=== PATIENT | female | born 1980 | race Caucasian/White ===

== ENCOUNTER 2024-07-20 12:51 | Outpatient (REF) | payer OTHER, SELFPAY ==
[2024-07-20 16:05] LABS: Iron 64 mcg/dL (30-160); Percent Iron Saturation 21 % (15-50); Total Iron Binding Capacity 307 mcg/dL (228-428); Unsaturated Iron Binding 243 ug/dL
[2024-07-20 16:13] LABS: Ferritin 214 ng/mL (10-250)
== END 2024-07-20 12:52 | disposition home or self-care (01) ==
LOC: HO.LAB 12:51
PROVIDERS: PCP Physician Assistant; Visit Provider Internal Medicine
DX: K21.9 Gastro-esophageal reflux disease without esophagitis (principal); D50.9 Iron deficiency anemia, unspecified
CPT/HCPCS: 36415; 82728; 83540

== ENCOUNTER 2024-07-20 12:51 | Outpatient (AMB) | payer OTHER, SELFPAY ==
--- NOTE | 2024-07-20 12:54 | A.OFFVIS_ITS ---
Vital Signs 07/20/24 12:56 Height 5 ft 5 in Weight 253 lb 8.505 oz BMI 42.2 BP 108/56 L Blood Pressure Location Lt brachial Position Sitting Pulse 77 Intake Visit Reasons: Iron Def Anemia, GERD Intake Note: May presents in the office as a new patient for iron def anemia and GERD. CC: used to be seen at the [facility]. Flare up in the epigastric region - states that she did not respond well to her famotidine for her gastritis flare up - states that anything she eats that is solid gives her pain. She gets both constipation and diarrhea and states that after she eats she has to run to the bathroom with diarrhea. Nursery Laborer Required: No Allergies No Known Allergies Allergy (Verified 07/20/24 12:56) HPI Comments Details: 43 y.o F with PMH of who is here for anemia. Reports was prev established with GI in [place] for epigastric pain and was told has hiatal hernia after an EGD - roughly around 2019. Now having similar complaints, has cramping and discomfort after solid foods. BMs are soft to loose. Pain gets better after defecation. No blood in stool. No N/V. Takes famotidine intermittently. Switched to omeprazole which helped more. Pt has an IUD since 2018 so doesnt menstruate. Was started on PO iron by PCP for iron deficiency anemia. Labs reviewed through pt's portal. Hb 14, on 07/13. iron studies not done. [facility] Surgical History (Updated 07/20/24 @ 12:57 by ROBERT Gibbons) History of esophagogastroduodenoscopy (EGD) Review of Systems Const All systems reviewed & are unremarkable except as noted in HPI and below Physical Exam Vital Signs: Last Vital Signs Pulse 77 07/20/24 12:56 BP 108/56 L 07/20/24 12:56 BMI result Body Mass Index 42.2 No apparent distress Nonicteric Abdomen soft, nondistended Alert and oriented x3, normal gait Assessment & Plan Assessment & Plan (1) GERD (gastroesophageal reflux disease): Code(s): K21.9 - Gastro-esophageal reflux disease without esophagitis Category: Medical (2) Iron deficiency anemia: Code(s): D50.9 - Iron deficiency anemia, unspecified Category: Medical Plan 1. For reflux sx - will recommend barium swallow vic given reported hx of HH. In the meantime, reinstate PPI. Plan: - Barium swallow - omeprazole 20 mg once daily x 90 days 2. TRINITY Pt has IUD and does not menstruate. Will need bidirectional endoscopy to evaluate this further. Plan: - EGD/colo to be booked - PEG prep Rxed and instructions given - repeat iron panel Follow up after scopes Orders: Orders IRON PROFILE Today D50.9 - Iron deficiency anemia, unspecified Ferritin Today D50.9 - Iron deficiency anemia, unspecified [place] barium swallow Today K21.9 - Gastro-esophageal reflux disease without esophagitis Medications: New omeprazole 20 mg PO DAILY 90 caps 0RF peg 3350-electrolytes 236-22.74-6.74 -5.86 gram (Golytely) as per split prep instructions, until fecal effluent is clear 240 mL PO Q10M 4,000 mL 0RF colonoscopy Coding Level of Care Code New Pt Level 4 (07832) Diagnoses GERD (gastroesophageal reflux disease) K21.9 Iron deficiency anemia D50.9
[2024-07-20 12:56] VITALS: BP 108/56; PULSE 77; BMI 42.2
--- OUTSIDE RECORDS SUMMARY | 2024-07-20 13:31 | XMS_ITS | Encounter Summary ---
Author Organization [employer] Address [address] [place] [address] 7 [place] [address] Care Team Providers Care Last Sawyer Name Role Phone Lacie Valle PA-C Primary Care Provider Unav ailable Encounter Details Date Type Department Care Team (Latest Contact Info) Description 11/07/2021 Abstract [facility] Dental, Provider, DDS Social History Tobacco Use Types Packs/Day Years Used Date Smoking Tobacco: Never Assessed Comments Unknown Sex and Gender Information Value Date Recorded Sex Assigned at Female 02/25/2022 1:19 PM EST Legal Sex Female 8:33 PM EDT Gender Identity Female 02/25/2022 1:19 PM EST Sexual Orientation Choose not to disclose 2022 9:24 AM EST documented as of this encounter Plan of Treatment Upcoming Encounters Date Type Department Care Team (Late st Contact Info) Description 08/30/2024 8:30 AM EDT Office Visit Thor [facility] Dental [address] [place] [address] Opal Huang LLD [address] [place] [address] documented as of this encounter Visit Diagnoses Not on filedocumented in this encounter Care Teams Last Sawyer Relationship Specialty Start Date End Date Lacie Valle PA-C PCP - General Family Medicine 06/03/22 documented as of this encounter
== END 2024-07-20 14:01 | disposition home or self-care (01) ==
LOC: HO.HGI 12:52
PROVIDERS: PCP Physician Assistant; Visit Provider Internal Medicine
DX: K21.9 Gastro-esophageal reflux disease without esophagitis (principal); D50.9 Iron deficiency anemia, unspecified
CPT/HCPCS: 99204

== ENCOUNTER 2025-01-26 07:48 | Day surgery (SDC) | payer OTHER, SELFPAY ==
--- OUTSIDE RECORDS SUMMARY | 2024-12-23 07:33 | XMS_ITS | Clinical Summary ---
Author Organization [employer] Address [address] [place] [address] 7 [place] [address] Care Team Providers Care Finishing Machine Operator Name Role Phone PcpThor Unassigned Primary Care Provider U navailable Allergies No known active allergies Medications citalopram (CeleXA) 20 MG tablet Take 20 mg by mouth Once per day. Active atorvastatin (Lipitor) 10 MG tablet Take 10 mg by mouth Once per day. Active Family History Relation Name Status Comments Maternal Grandfather Materna l Grandfather: , diagnosed with Hypercholesteremia, Hypertension, Cancer of lung Other Paternal Uncle: 50 yrs, diagnosed with Cancer of lung Paternal Grandfather Paterna l Grandfather: , [place]?, diagnosed with Coronary artery disease (CAD) Social History Tobacco Use Types Packs/Day Years Used Date Smoking Tobacco: Former Cigarettes Q uit: 2002 Pipe Smokeless Tobacco: Never Tobacco Cessation:Counseling Given: Not Answered Alcohol Use Standard Drinks/Week Comments Yes 0 (1 standard drink = 0.6 oz pur e alcohol) socially Comments Unknown Sex and Gender Information Value Date Recorded Sex Assigned at Female 02/25/2022 1:19 PM EST Legal Sex Female 8:33 PM EDT Gender Identity Female 02/25/2022 1:19 PM EST Sexual Orientation Choose not to disclose 2022 9:24 AM EST Last Filed Vital Signs Vital Sign Reading Time Taken Comments Blood Pressure 146/87 02/29/2024 8:03 AM EST Pulse 84 02/29/2024 8:03 AM EST Temperature - - Respiratory Rate - - Oxygen Saturation 98% 05/27/2021 8:30 AM EDT Inhaled Oxygen Concentration - - Weight 114 kg (250 lb 12.8 oz) 05/27/2021 8:30 A M EDT Height 163.8 cm (5' 4.5 ) 05/27/2021 8:30 AM EDT Body Mass Index 42.38 05/27/2021 8:30 AM EDT Plan of Treatment Health Maintenance Due Date Last Done Comments Depression Screening 1981 HIV Screening 1981 SDOH Screening 1981 Disability Screening 1981 Alcohol/Substance Use Screening 1993 Family Planning (PISQ) 1996 HPV Vaccines (1 - 3-dose series) 1996 Hepatitis C Screening 11/23/1999 Hepatitis B Vaccines (1 of 3 - 19+ 3-dose series) 2000 Pap Smear 2002 Cervical Cancer Screening 11/23/2011 HPV/Cotest 11/23/2011 Dental Oral Exam 08/25/2024 02/25/2024, , 03/12/2023, Additional history exists Dental Prophylaxis 08/25/2024 02/25/2024, 0 10/21/2023, 03/12/2023, Additional history exists COVID-19 Vaccine ( season) 2024 11/21/2022, 06/09/2020, 05/17/2020 Influenza Vaccine (#1) 2024 , 12/12/2019, 12/13/2008, Additional history exists Mammogram 10/24/2024 10/24/2022, 10/24/2022 Dental X-Ray: Bitewings 02/25/2025 02/24/19 25, 12/11/2022, 11/07/2021, Additional history exists Tobacco Screening 04/28/2025 04/28/2024 Dental X-Ray: Full Mouth 02/25/2027 025, 11/07/2021, 07/04/2013, Additional history exists Zoster Vaccines (1 of 2) 11/23/2031 DTaP/Tdap/Td Vaccines (3 - Td or Tdap) 11/10/2033 11/11/2023, 09/05/2015, 05/21/2006 RSV Patients and Patients Aged 60 years or older (1 - 1-dose 75+ series) 2056 HIB Vaccines Aged Out No longer eligi ble based on patient's age to complete this topic Hepatitis A Vaccines Aged Out No long er eligible based on patient's age to complete this topic IPV Vaccines Aged Out No longer eligi ble based on patient's age to complete this topic Meningococcal B Vaccine Aged Out No l onger eligible based on patient's age to complete this topic Meningococcal Vaccine Aged Out No kalie natalie eligible based on patient's age to complete this topic Pneumococcal Vaccine: Pediatrics (0 to 5 Years) and At-Risk Patients (6 to 49) Years Aged Out No longer eligible based on patient's age to complete this topic RSV under 20 months Aged Out No longe r eligible based on patient's age to complete this topic Rotavirus Vaccines Aged Out No longer eligible based on patient's age to complete this topic Procedures Procedure Name Priority Date/Time Associated Diagnosis Comments Full PROPHYLAXIS - ADULT Routine 025 8:30 AM EST INTRAORAL - COMPLETE SERIES OF RADIOGRAPHIC IMAGES Routine 02/25/2024 8:30 AM EST PERIODIC ORAL EVALUATION - ESTABLISHED PATIENT Routine 02/25/2024 8:30 AM EST from Last 3 Months or Most Recently Relevant to Health Maintenance Insurance DENTAL - [facility] Care Teams Finishing Machine Operator Relationship Specialty Start Date End Date Thor Garcia Unassigned PCP - General Family Medicine 11/15/24
--- OUTSIDE RECORDS SUMMARY | 2024-12-23 07:33 | XMS_ITS | Encounter Summary ---
Author Organization [facility] Address [address] [place] [address] Phone Care Team Providers Care Station Usher Name Role Phone Michi Soria NP Primary Care Provider [phone] Joe Reinoso DO Primary Care Provider [phone] Sejal Ngo MD Primary Care Provider + Encounter Details Date Type Department Care Team (Latest Contact Info) Description 01/05/2020 Transcribe Orders Virtual Department [address] [place] [address] Connor Johansen MD [address] [address] [email or web address] Pre-operative laboratory examination (Primary Dx) Social History Tobacco Use Types Packs/Day Years Used Date Smoking Tobacco: Never Smokeless Tobacco: Never Alcohol Use Standard Drinks/Week Comments Yes 0 (1 standard drink = 0.6 oz pur e alcohol) once a week Comments No Sex and Gender Information Value Date Recorded Sex Assigned at Female 12/15/2020 1:20 AM EDT Legal Sex Female 9:19 PM EDT Gender Identity Female 12/15/2020 1:20 AM EDT Sexual Orientation Straight 12/15/2020 1: 20 AM EDT documented as of this encounter Plan of Treatment Upcoming Encounters Date Type Department Care Team (Late st Contact Info) Description 04/28/2025 10:15 AM EST Office Visit [facility] Pulmonary, Allergy and Critical Care Medicine [address] [place] [address] [place] [address] Bradley Philip MD, MS 10 [facility] 2nd [place] [address] [email or web address] documented as of this encounter Results * COVID-19 PCR Order (01/09/2020 6:45 AM EST) Specimen Source NASOPHARYNGEAL SW[facility] ([employer] COVID-19 Comment [id number] [facility] COVID Testing Status Sent to [facility] Other 01/09/2020 6:45 AM EST 01/09/2020 12:54 PM EST us Connor Johansen MD BODY FLUIDS AND STOOLS ORDERAB LES Final Result Performing Organization Address City/State/[facility] Co de Phone Number [facility] [address] [place] [address] documented in this encounter Visit Diagnoses Diagnosis Pre-operative laboratory examination- Primary Pre-procedural laboratory examination documented in this encounter Additional Health Concerns Infection Onset Date Last Indicated Resolved Time CoV-Risk 03/16/2024 03/16/2024 03/27/2024 2:34 AM EST documented as of this encounter Care Teams Station Usher Relationship Specialty Start Date End Date Michi Soria NP [address] [place] [address] [email or web address] PCP - General Family Medicine 12/17/19 04/01/22 Joe Reinoso DO [address] [facility] [address] [place] [address] [email or web address] PCP - General Internal Medicine 04/02/22 02/05/23 Sejal Ngo MD [address] [place] [address] PCP - General Family Medicine 02/06/23 documented as of this encounter Additional Source Comments The information contained in this document represents components of the legal health record. It is not the complete legal health record.[facility]
--- OUTSIDE RECORDS SUMMARY | 2024-12-23 07:33 | XMS_ITS | Encounter Summary ---
Author Organization [facility] Address [address] [place] [address] Phone Care Team Providers Care Die Trouble Shooter Name Role Phone Fior Carney MD Primary Care Provider Michi Soria NP Primary Care Provider [phone] Joe Reinoso DO Primary Care Provider [phone] Sejal Ngo MD Primary Care Provider + Encounter Details Date Type Department Care Team (Latest Contact Info) Description 12/01/2019 Transcribe Orders Virtual Department [address] [place] [address] Fior Carney MD [address] [place] [address] [email or web address] SOB (shortness of breath) (Primary Dx) Social History Tobacco Use Types [...] Upcoming Encounters Date Type Department Care Team ( Contact Info) Description 04/28/2025 10:15 AM EST Office Visit [facility] Pulmonary, Allergy and Critical Care Medicine [address] [place] [address] [place] [address] Bradley Philip MD, MS 10 [facility] 2nd [place] [address] [email or web address] documented as of this encounter Results * XR CHEST PA AND LATERAL 2 VIEWS (12/07/2019 11:37 AM EDT) Anatomical Region Laterality Modality Chest Computed Radiogr aphy 12/07/2019 11:4 3 AM EDT Impressions 12/07/2019 11:43 AM EDT Clear lungs. Narrative 12/07/2019 11:43 AM EDT TECHNIQUE: XR CHEST PA AND LATERAL 2 VIEWS COMPARISON: April 23, 2017 FINDINGS: Lines/tubes: None. Lungs: The lungs are well inflated and clear. There is no evidence of pneumonia or pulmonary edema. Pleura: There is no pleural effusion or pneumothorax. Heart and mediastinum: The heart and the mediastinum are normal. Bones: The thoracic skeleton is unremarkable. Procedure Note Seth Silva MD, ELIZABETH - 12/07/2019 TECHNIQUE: XR CHEST PA AND LATERAL 2 VIEWS COMPARISON: April 23, 2017 FINDINGS: Lines/tubes: None. Lungs: The lungs are well inflated and clear. There is no evidence ofpneumonia or pulmonary edema. Pleura: There is no pleural effusion or pneumothorax. Heart and mediastinum: The heart and the mediastinum are normal. Bones: The thoracic skeleton is unremarkable. IMPRESSION: Clear lungs. Fior Carney MD IMG XR CHEST Final R esult documented in this encounter Visit Diagnoses Diagnosis SOB (shortness of breath)- Primary Shortness of breath SOB (shortness of breath) Shortness of breath documented in this encounter Additional Health Concerns Infection Onset Date Last Indicated Resolved Time CoV-Risk 03/16/2024 03/16/2024 03/27/2024 2:34 AM EST documented as of this encounter Care Teams Die Trouble Shooter Relationship Specialty Start Date End Date Fior Carney MD [email or web address] PCP - General Family Medicine 10/13/19 12/16/19 Michi Soria NP [address] [place] [address] [email or web address] PCP - General Family Medicine 12/17/19 04/01/22 Joe Reinoso DO [address] [place] [address] SHAYY Cruz [address] [email or web address] PCP - General Internal Medicine 04/02/22 02/05/23 Sejal Ngo MD [address] [place] [address] [email or web address] PCP - General Family Medicine 02/06/23 documented as of this encounter Additional Source Comments The information contained in this document represents components of the legal health record. It is not the complete legal health record.[facility]
--- OUTSIDE RECORDS SUMMARY | 2024-12-23 07:34 | XMS_ITS | Encounter Summary ---
Author Organization [facility] Address [address] [place] [address] Phone Care Team Providers Care Drum Printer Name Role Phone Michi Soria NP Primary Care Provider [phone] Joe Reinoso DO Primary Care Provider [phone] Sejal Ngo MD Primary Care Provider + Encounter Details Date Type Department Care Team (Latest Contact Info) Description 03/17/2022 Transcribe Orders Virtual Department [address] [place] [address] Joe Reinoso DO [address] [place] [address], [address] [place], [place] [id number] [email or web address] Right shoulder pain, unspecified chronicity (Primary Dx) Social History Tobacco Use Types [...] Pulmonary, Allergy and Critical Care Medicine [address] [facility] [place] [address] Bradley Philip MD, MS 10 [facility] 2nd [place] [address] [email or web address] documented as of this encounter Visit Diagnoses Diagnosis Right shoulder pain, unspecified chronicity- Primary documented in this encounter Additional Health Concerns Infection Onset Date Last Indicated Resolved Time CoV-Risk 03/16/2024 03/16/2024 03/27/2024 2:34 AM EST documented as of this encounter Care Teams Drum Printer Relationship Specialty Start Date End Date Michi Soria NP [address] [place] [address] [email or web address] PCP - General Family Medicine 12/17/19 04/01/22 Joe Reinoso DO [address] [place] [address] [address] [place] [id number] [email or web address] PCP - General Internal Medicine 04/02/22 02/05/23 Sejal Ngo MD [address] [place] [address] [email or web address] PCP - General Family Medicine 02/06/23 documented as of this encounter Additional Source Comments The information contained in this document represents components of the legal health record. It is not the complete legal health record.[facility]
--- OUTSIDE RECORDS SUMMARY | 2024-12-23 07:34 | XMS_ITS | Encounter Summary ---
Author Organization [facility] Address [address] [place] [address] Phone Care Team Providers Care Room Service Runner Name Role Phone Cris Pelaez MD Primary Care Provider [phone] Tanika Dobbins CNP Primary Care Provider + Fior Carney MD Primary Care Provider Michi Soria NP Primary Care Provider [phone] Joe Reinoso DO Primary Care Provider [phone] Sejal Ngo MD Primary Care Provider + Encounter Details Date Type Department Care Team (Late st Contact Info) Description 05/12/2017 Ancillary Orders Virtual Department [address] [place] [address] Nely Ng MD [address] [place], [place] [id number] [email or web address] Social History Tobacco Use Types Packs/Day Years [...] Description 04/28/2025 10:15 AM EST Office Visit [facility] Pulmonary, Allergy and Critical Care Medicine [address] [place] [address] [place] [address] Bradley Philip MD, MS 10 [facility] 2nd [place] [address] documented as of this encounter Results * Holter Monitor 24 Hours (05/15/2017 9:46 AM EDT) Total Beats 113,099 [facility] Ventricular Ectopy Total Beats 0 [facility] Ventricular Ectopy Single Beats 0 [facility] Ventricular Pair 0 [facility] Ventricular Runs 0 [facility] Supraventricular Total Beats 8 [facility] Supraventricular Ectopic Single Beats 6 [facility] Supraventricular Pairs 1 [facility] Supraventricular Runs 0 [facility] Mean Heart Rate 85 BPM [facility] Maximum Heart Rate 130 BPM [facility] Minimum Heart Rate 54 BPM [facility] Longest RR 1.280 S [facility] Anatomical Region Laterality Modality Heart Other 05/13/2017 9:08 AM EDT 05/14/2017 3:46 PM EDT Impressions 05/15/2017 11:02 AM EDT Normal 24 hour monitor. Patient symptoms during NSR and sinus tachycardia. Narrative 05/15/2017 11:02 AM EDT 24 Hour monitor: Heart rate 54 MIN at 00:20:48 14-MAY-2017 85 AVG 130 MAX at 07:25:42 14-MAY-2017 Rare PACs present. Pt symptoms of fluttering and shortness of breath during NSR and sinus tachycardia. us Nely Ng MD [facility] ORDER EFRAIN Final Result documented in this encounter Visit Diagnoses Diagnosis Palpitations Palpitations documented in this encounter Additional Health Concerns Infection Onset Date Last Indicated Resolved Time CoV-Risk 03/16/2024 03/16/2024 03/27/2024 2:34 AM EST documented as of this encounter Care Teams Room Service Runner Relationship Specialty Start Date End Date Cris Pelaez MD [email or web address] PCP - General 12/09/16 01/11/19 Tanika Dobbins CNP [address] [place] [address] [email or web address] PCP - General Family Medicine 01/12/19 10/12/19 Fior Carney MD [address] [place] [address] [email or web address] PCP - General Family Medicine 10/13/19 12/16/19 Michi Soria NP [address] [place] [address] [email or web address] PCP - General Family Medicine 12/17/19 04/01/22 Joe Reinoso DO 245 [facility] 20 [place] [address] [email or web address] PCP - General Internal Medicine 04/02/22 02/05/23 Sejal Ngo MD [address] [place] [address] [email or web address] PCP - General Family Medicine 02/06/23 documented as of this encounter Additional Source Comments The information contained in this document represents components of the legal health record. It is not the complete legal health record.[facility]
--- OUTSIDE RECORDS SUMMARY | 2024-12-23 07:34 | XMS_ITS | Encounter Summary ---
Author Organization [facility] Address [address] [place] [address] Phone Care Team Providers Care Insurance Adviser Name Role Phone Michi Soria NP Primary Care Provider [phone] Joe Reinoso DO Primary Care Provider [phone] Sejal Ngo MD Primary Care Provider + Encounter Details Date Type Department Care Team (Late st Contact Info) Description 12/16/2021 Procedure Pass [facility], [address] [address] Social History Tobacco Use Types Packs/Day Years [...] Description 04/28/2025 10:15 AM EST Office Visit [facility] Pulmonary, Allergy and Critical Care Medicine 10 [facility] [place] [address] Bradley Philip MD, MS 10 [facility] 2nd [place] [address] [email or web address] documented as of this encounter Visit Diagnoses Not on filedocumented in this encounter Additional Health Concerns Infection Onset Date Last Indicated Resolved Time CoV-Risk 03/16/2024 03/16/2024 03/27/2024 2:34 AM EST documented as of this encounter Care Teams Insurance Adviser Relationship Specialty Start Date End Date Michi Soria NP [address] [place] [address] [email or web address] PCP - General Family Medicine 12/17/19 04/01/22 Joe Reinoso DO 245 [facility] 20 [place] [id number] [email or web address] PCP - General Internal Medicine 04/02/22 02/05/23 Sejal Ngo MD [address] [place] [address] [email or web address] PCP - General Family Medicine 02/06/23 documented as of this encounter Additional Source Comments The information contained in this document represents components of the legal health record. It is not the complete legal health record.[facility]
--- OUTSIDE RECORDS SUMMARY | 2024-12-23 07:34 | XMS_ITS | Encounter Summary ---
Author Organization [facility] Address [address] [place] [address] Phone Care Team Providers Care Airport Operations Specialist Name Role Phone Michi Soria NP Primary Care Provider [phone] Joe Reinoso DO Primary Care Provider [phone] Sejal Ngo MD Primary Care Provider + Encounter Details Date Type Department Care Team (Late st Contact Info) Description 02/24/2021 Procedure Pass [facility], Ct Scan - [facility] [address] [place] [address] Social History Tobacco Use Types Packs/Day Years [...] AM EDT documented as of this encounter Functional Status * Calculated C-SSRS Risk Score (Lifetime/Recent) Answer Date of Assessment Author No Risk Indicated 02/24/2021 3:27 PM Esther Torres RN * [place] Suicide Severity Rating Scale (Screener/Recent Self-Report) Question Answer Date of Assessment Author 1. Wish to be (Past 1 Month) No 022 3:27 PM Esther Torres RN 2. Non-Specific Active Suici jonathan Thoughts (Past 1 Month) No 02/24/2021 3:27 PM EST Ana Barros RN 6. Suicidal Behavior (Lifetime) No 3:27 PM EST Esther Barros RN documented as of this encounter Plan of Treatment Upcoming Encounters Date Type Department Care Team (Late st Contact Info) Description 04/28/2025 10:15 AM EST Office Visit CD Pulmonary, Allergy and Critical Care Medicine [address] [place] [address] [place] [address] Bradley Philip MD, MS 10 [facility] 2nd [place] [address] [email or web address] documented as of this encounter Visit Diagnoses Not on filedocumented in this encounter Additional Health Concerns Infection Onset Date Last Indicated Resolved Time CoV-Risk 03/16/2024 03/16/2024 03/27/2024 2:34 AM EST documented as of this encounter Care Teams Airport Operations Specialist Relationship Specialty Start Date End Date Michi Soria NP [address] [place] [address] [email or web address] PCP - General Family Medicine 12/17/19 04/01/22 Joe Reinoso DO 245 [facility] [address] [place] [id number] [email or web address] PCP - General Internal Medicine 04/02/22 02/05/23 Sejal Ngo MD [address] [place] [address] [email or web address] PCP - General Family Medicine 02/06/23 documented as of this encounter Additional Source Comments The information contained in this document represents components of the legal health record. It is not the complete legal health record.[facility]
--- OUTSIDE RECORDS SUMMARY | 2024-12-23 07:34 | XMS_ITS | Encounter Summary ---
Author Organization [facility] Address [address] [place] [address] Phone Care Team Providers Care Captain'S Assistant Name Role Phone Michi Soria NP Primary Care Provider [phone] Joe Reinoso DO Primary Care Provider [phone] Sejal Ngo MD Primary Care Provider + Reason for Referral * MRI/CAT Scan - Closed Specialty Diagnoses / Procedures Referred By Star t Referred To Contact Radiology Diagnoses Sensorineural hearing loss (SNHL), unspecified laterality Pulsatile tinnitus of right ear Procedures MRI Angio Brain CHG MR ANGIO, HEAD Alexandra Nelson PA-C Phone: tel: fax: [email or web address] Referral ID Status Reason Start Date Expiration Date Visits Re quested Visits Authorized [id number] Closed 12/09/2021 02/07/2022 1 1 Encounter Details Date Type Department Care Team (Late st Contact Info) Description 12/16/2021 Transcribe Orders Virtual Department [address] [place] [address] Alexandra Nelson PA-C [address] [place] [id number] [email or web address] Sensorineural hearing loss (SNHL), unspecified laterality (Primary Dx); Pulsatile tinnitus of right ear Social History Tobacco Use Types Packs/Day Years [...] Description 04/28/2025 10:15 AM EST Office Visit [facility] Pulmonary, Allergy and Critical Care Medicine [address] [place] [address] Bradley Philip MD, MS [address] [address] documented as of this encounter Results * MRA HEAD WITHOUT CONTRAST (01/31/2022 9:26 AM EST) Anatomical Region Laterality Modality Head Magnetic Resonan ce 02/01/2022 9:25 AM EST Impressions 02/02/2022 10:15 AM EST -No definitive intracranial cause for the reported symptoms identified. No IAC or CP angle mass. -Right jugular vein is asymmetrically prominent in caliber compared to the left, the top of the jugular bulb located at approximately the same transverse level as the basal turn of the cochlea, suggesting that it is borderline high-riding, which may be along the spectrum of normal variation. However, if there is clinical concern for a potential vascular cause of pulsatile right ear tinnitus, consider temporal bone CT to more precisely assess the bony anatomy around the jugular bulb, and confirm integrity of the sigmoid plate. Narrative 02/02/2022 10:15 AM EST MRI BRAIN (INTERNAL AUDITORY CANAL) WITH AND WITHOUT CONTRAST, MRI ANGIO BRAIN WITHOUT CONTRAST TECHNIQUE: Multi-sequence, multi-planar MRI of the brain including high resolution images of the temporal bones was performed before and after intravenous contrast. MR angiogram of the head was performed without intravenous gadolinium, using [id number] technique. COMPARISON: None FINDINGS: MRI BRAIN AND IAC: Internal Auditory Canals, Cerebellopontine Angles, and Intracranial 7th and 8th Nerve Complexes: Normal. No cerebellopontine angle or internal auditory canal mass. Inner Ear Structures: Normal. Preserved signal in the labyrinth. No MRI evidence for an inner ear anomaly. Brain Parenchyma: Normal. No evidence of acute infarct, mass lesion, or hemorrhage. Ventricular System and Extra-Axial Spaces: Normal. No evidence of midline shift or hydrocephalus. Miscellaneous: None. Venous structures: The right jugular vein is asymmetrically prominent in caliber compared to the left, the top of the jugular bulb located at approximately the same transverse level as the basal turn of the cochlea, suggesting that it is borderline high-riding. MRA HEAD: Anterior Circulation: Normal. Normal flow within the intracranial internal carotid arteries, anterior cerebral arteries and the middle cerebral arteries. No severe stenosis, occlusion, aneurysm or arteriovenous malformation. Posterior Circulation: Normal. Normal flow within the intracranial vertebral arteries, basilar artery and posterior cerebral arteries. No severe stenosis, occlusion, aneurysm or arteriovenous malformation. Procedure Note Randy Moctezuma MD - 02/02/2022 MRI BRAIN (INTERNAL AUDITORY CANAL) WITH AND WITHOUT CONTRAST, MRI ANGIOBRAIN WITHOUT CONTRAST TECHNIQUE: Multi-sequence, multi-planar MRI of the brain including highresolution images of the temporal bones was performed before and afterintravenous contrast. MR angiogram of the head was performed withoutintravenous gadolinium, using [id number] technique. COMPARISON: None FINDINGS: MRI BRAIN AND IAC: Internal Auditory Canals, Cerebellopontine Angles, and Intracranial 7thand 8th Nerve Complexes: Normal. No cerebellopontine angle or internalauditory canal mass. Inner Ear Structures: Normal. Preserved signal in the labyrinth. No MRIevidence for an inner ear anomaly. Brain Parenchyma: Normal. No evidence of acute infarct, mass lesion, orhemorrhage. Ventricular System and Extra-Axial Spaces: Normal. No evidence of midlineshift or hydrocephalus. Miscellaneous: None. Venous structures: The right jugular vein is asymmetrically prominent incaliber compared to the left, the top of the jugular bulb located atapproximately the same transverse level as the basal turn of the cochlea,suggesting that it is borderline high-riding. MRA HEAD: Anterior Circulation: Normal. Normal flow within the intracranial internalcarotid arteries, anterior cerebral arteries and the middle cerebralarteries. No severe stenosis, occlusion, aneurysm or arteriovenousmalformation. Posterior Circulation: Normal. Normal flow within the intracranialvertebral arteries, basilar artery and posterior cerebral arteries. Nosevere stenosis, occlusion, aneurysm or arteriovenous malformation. IMPRESSION: -No definitive intracranial cause for the reported symptoms identified. NoIAC or CP angle mass. -Right jugular vein is asymmetrically prominent in caliber compared to theleft, the top of the jugular bulb located at approximately the sametransverse level as the basal turn of the cochlea, suggesting that it isborderline high-riding, which may be along the spectrum of normalvariation. However, if there is clinical concern for a potential vascularcause of pulsatile right ear tinnitus, consider temporal bone CT to moreprecisely assess the bony anatomy around the jugular bulb, and confirmintegrity of the sigmoid plate. Alexandra Nelson PA-C IMG MR HEAD/NECK Final R esult documented in this encounter Visit Diagnoses Diagnosis Sensorineural hearing loss (SNHL), unspecified laterality- Primary Pulsatile tinnitus of right ear Pulsatile tinnitus of right ear Sensorineural hearing loss (SNHL), unspecified laterality documented in this encounter Additional Health Concerns Infection Onset Date Last Indicated Resolved Time CoV-Risk 03/16/2024 03/16/2024 03/27/2024 2:34 AM EST documented as of this encounter Care Teams Captain'S Assistant Relationship Specialty Start Date End Date Michi Soria NP [address] [place] [address] [email or web address] PCP - General Family Medicine 12/17/19 04/01/22 Joe Reinoso DO [address] [place] [id number] [email or web address] PCP - General Internal Medicine 04/02/22 02/05/23 Sejal Ngo MD [address] [place] [address] [email or web address] PCP - General Family Medicine 02/06/23 documented as of this encounter Additional Source Comments The information contained in this document represents components of the legal health record. It is not the complete legal health record.[facility]
--- OUTSIDE RECORDS SUMMARY | 2024-12-23 07:34 | XMS_ITS | Encounter Summary ---
Author Organization [facility] Address [address] [place] [address] Phone Care Team Providers Care Press Smith Helper Name Role Phone Michi Soria NP Primary Care Provider [phone] Joe Reinoso DO Primary Care Provider [phone] Sejal Ngo MD Primary Care Provider + Encounter Details Date Type Department Care Team (Late st Contact Info) Description 12/12/2021 Procedure Pass [facility], [address] [address] Social History Tobacco Use Types Packs/Day Years [...] Encounters Date Type Department Care Team (Late Contact Info) Description 04/28/2025 10:15 AM EST Office Visit CD Pulmonary, Allergy and Critical Care Medicine 10 [facility] [address] [place] [address] Bradley Philip MD, MS 10 [facility] 2nd floor [place] [address] [email or web address] documented as of this encounter Visit Diagnoses Not on filedocumented in this encounter Additional Health Concerns Infection Onset Date Last Indicated Resolved Time CoV-Risk 03/16/2024 03/16/2024 03/27/2024 2:34 AM EST documented as of this encounter Care Teams Press Smith Helper Relationship Specialty Start Date End Date Michi Soria NP [address] [place] [address] [email or web address] PCP - General Family Medicine 12/17/19 04/01/22 Joe Reinoso DO 245 [facility] 20 [place] [id number] [email or web address] PCP - General Internal Medicine 04/02/22 02/05/23 Sejal Ngo MD [address] [place] [address] [email or web address] PCP - General Family Medicine 02/06/23 documented as of this encounter Additional Source Comments The information contained in this document represents components of the legal health record. It is not the complete legal health record.[facility]
--- OUTSIDE RECORDS SUMMARY | 2024-12-23 07:34 | XMS_ITS | Encounter Summary ---
Author Organization [facility] Address [address] [place] [address] Phone Care Team Providers Care Educational Consultant Name Role Phone Michi Soria NP Primary Care Provider [phone] Joe Reinoso DO Primary Care Provider [phone] Sejal Ngo MD Primary Care Provider + Encounter Details Date Type Department Care Team (Latest Contact Info) Description 03/05/2021 Transcribe Orders Virtual Department [address] [place] [address] Lacie Valle PA [address] [place] [address]. [place] [address] [email or web address] Thyroid nodule (Primary Dx) Social History Tobacco Use Types [...] Pulmonary, Allergy and Critical Care Medicine 10 [place] [address] Bradley Philip MD, MS [address] [place] [address] [email or web address] documented as of this encounter Results * US Thyroid Gland (03/19/2021 3:53 PM EST) Anatomical Region Laterality Modality Neck, Head, Chest Ultrasound 03/19/2021 5:50 PM EST Impressions 03/19/2021 6:06 PM EST Multiple thyroid nodules with left pole nodules demonstrating TI-RADS 3 characteristics. Given size no additional follow up is required. Narrative 03/19/2021 6:06 PM EST US THYROID GLAND TECHNIQUE: Ultrasound of the thyroid. COMPARISON: US THYROID GLAND FINDINGS: Right Thyroid: The right lobe measures 5.2 x 1.5 x 1.7 cm Nodule #1: Midpole 0.6 x 0.5 x 0.8 cm hypoechoic, cystic-appearing, wider than tall, smooth nodule. No internal echogenic foci or vascularity. (TI-RADS 2) Nodule #2: Midpole 0.8 x 0.9 x 0.7 cm mixed cystic and solid, isoechoic, wider than tall, somewhat ill-defined nodule without internal echogenic foci. (TI-RADS 2) No right sided adenopathy is detected. Left Thyroid: The left lobe measures 4.8 x 1.5 x 1.8 cm. Nodule #1: Midpole 0.8 x 0.4 x 0.7 solid, isoechoic, wire than tall, smoothly marginated nodule (TI-RADS 3). Nodule #2: Upper/mid pole 0.3 x 0.5 x 0.6 cm cystic, isoechoic, smoothly marginated nodule (TI-RADS 1). Nodule #3: Low pole 1.3 x 0.8 x 1.1 cm solid, hyperechoic, wider than tall, ill-defined nodule (TI-RADS 3). Nodule #4: Low pole 1.2 x 0.9 x 1.1 cm solid, hyperechoic, wider than tall, ill-defined nodule (TI-RADS 3). No left sided adenopathy is detected. Isthmus: Measures 0.4 cm in thickness. No nodules. Procedure Note Armand Mayer MD - 03/19/2021 US THYROID GLAND TECHNIQUE: Ultrasound of the thyroid. COMPARISON: US THYROID GLAND FINDINGS: Right Thyroid: The right lobe measures 5.2 x 1.5 x 1.7 cm Nodule #1: Midpole 0.6 x 0.5 x 0.8 cm hypoechoic, cystic-appearing, wider than tall,smooth nodule. No internal echogenic foci or vascularity. (TI-RADS 2) Nodule #2: Midpole 0.8 x 0.9 x 0.7 cm mixed cystic and solid, isoechoic, wider thantall, somewhat ill-defined nodule without internal echogenic foci.(TI-RADS 2) No right sided adenopathy is detected. Left Thyroid: The left lobe measures 4.8 x 1.5 x 1.8 cm. Nodule #1: Midpole 0.8 x 0.4 x 0.7 solid, isoechoic, wire than tall,smoothly marginated nodule (TI-RADS 3). Nodule #2: Upper/mid pole 0.3 x 0.5 x 0.6 cm cystic, isoechoic, smoothlymarginated nodule (TI-RADS 1). Nodule #3: Low pole 1.3 x 0.8 x 1.1 cm solid, hyperechoic, wider thantall, ill-defined nodule (TI-RADS 3). Nodule #4: Low pole 1.2 x 0.9 x 1.1 cm solid, hyperechoic, wider thantall, ill-defined nodule (TI-RADS 3). No left sided adenopathy is detected. Isthmus: Measures 0.4 cm in thickness. No nodules. IMPRESSION: Multiple thyroid nodules with left pole nodules demonstrating TI-RADS 3characteristics. Given size no additional follow up is required. us Lacie LR IMG US THYROID Final Result documented in this encounter Visit Diagnoses Diagnosis Thyroid nodule- Primary Nontoxic uninodular goiter Thyroid nodule Nontoxic uninodular goiter documented in this encounter Additional Health Concerns Infection Onset Date Last Indicated Resolved Time CoV-Risk 03/16/2024 03/16/2024 03/27/2024 2:34 AM EST documented as of this encounter Care Teams Educational Consultant Relationship Specialty Start Date End Date Michi Soria NP [address] [place] [address] [email or web address] PCP - General Family Medicine 12/17/19 04/01/22 Joe Reinoso DO 245 [facility] 20 [place] [phone] [email or web address] PCP - General Internal Medicine 04/02/22 02/05/23 Sejal Ngo MD [address] [place] [address] [email or web address] PCP - General Family Medicine 02/06/23 documented as of this encounter Additional Source Comments The information contained in this document represents components of the legal health record. It is not the complete legal health record.[facility]
--- OUTSIDE RECORDS SUMMARY | 2024-12-23 07:34 | XMS_ITS | Encounter Summary ---
Author Organization [facility] Address [address] [place] [address] Phone Care Team Providers Care Registration Scheduling Specialist Name Role Phone Michi Soria NP Primary Care Provider [phone] Joe Reinoso DO Primary Care Provider Sejal Ngo MD Primary Care Provider + Encounter Details Date Type Department Care Team (Latest Contact Info) Description 09/19/2020 Transcribe Orders Virtual Department [address] [place] [address] Michi Soria NP [address] [place] [address] [email or web address] Thyromegaly (Primary Dx) Social History Tobacco Use Types [...] Pulmonary, Allergy and Critical Care Medicine 10 [place] [address] Bradley Philip MD, MS 10 [facility] [address] [facility] [place] [address] [email or web address] documented as of this encounter Results * US Thyroid Gland (09/24/2020 3:08 PM EDT) Anatomical Region Laterality Modality Neck, Head, Chest Ultrasound 09/24/2020 3:20 PM EDT Impressions 09/24/2020 3:33 PM EDT 1. There are 2 sub-centimeter hypoechoic nodules within the right thyroid lobe, the more superior lesion potentially a cyst but less than ideally evaluated. This can be followed by ultrasound in 6 months. 2. Multiple nodules with solid characteristics and one within the mid aspect of the right lobe, the largest measuring 15 mm x 11 mm x 9 mm. These have characteristics of a TI -RADS 3 entire TI-RADS CATEGORY 4 lesions. Given their sizes a follow-up ultrasound in 6 months is recommended. Narrative 09/24/2020 3:33 PM EDT HISTORY: Enlarged thyroid on exam. COMPARISON: None. FINDINGS: Isthmus: No abnormalities demonstrated. Right lobe: The lobe measures 5.1 cm x 2.2 cm x 1.4 cm. Located in the upper pole is a round hypoechoic nodule measuring 6 mm in diameter. Margins appear mildly irregular although margins are less than ideally evaluated. No echogenic foci. Located within the mid aspect of the lobe is a round 9 mm nodule with isoechoic and hypoechoic components. Margins are indistinct. No echogenic foci. Left lobe: The lobe measures 5.0 cm x 1.8 cm x 1.5 cm. There are 2 well- circumscribed smoothly marginated oval hypoechoic nodules within the mid aspect of the thyroid, the more superior nodule measuring 5 mm x 4 mm x 3 mm and the slightly more inferior nodule measuring 8 mm by centimeter by 4 mm. These are both wider than tall and do not contain echogenic foci. Located in the lower pole is a mildly hypoechoic smoothly marginated nodule which is wider than tall measuring 12 mm x 12 mm x 7 mm. No echogenic foci. There is a similar adjacent nodule, more isoechoic to adjacent parenchyma measuring 15 mm x 11 mm x 9 mm. No echogenic foci. Procedure Note Jas Rodriguez MD - 09/24/2020 HISTORY: Enlarged thyroid on exam. COMPARISON: None. FINDINGS: Isthmus: No abnormalities demonstrated. Right lobe: The lobe measures 5.1 cm x 2.2 cm x 1.4 cm. Located in theupper pole is a round hypoechoic nodule measuring 6 mm in diameter.Margins appear mildly irregular although margins are less than ideallyevaluated. No echogenic foci. Located within the mid aspect of the lobe karl round 9 mm nodule with isoechoic and hypoechoic components. Margins areindistinct. No echogenic foci. Left lobe: The lobe measures 5.0 cm x 1.8 cm x 1.5 cm. There are 2well- circumscribed smoothly marginated oval hypoechoic nodules within themid aspect of the thyroid, the more superior nodule measuring 5 mm x 4 mmx 3 mm and the slightly more inferior nodule measuring 8 mm by centimeterby 4 mm. These are both wider than tall and do not contain echogenic foci.Located in the lower pole is a mildly hypoechoic smoothly marginatednodule which is wider than tall measuring 12 mm x 12 mm x 7 mm. Noechogenic foci. There is a similar adjacent nodule, more isoechoic toadjacent parenchyma measuring 15 mm x 11 mm x 9 mm. No echogenic foci. IMPRESSION: 1. There are 2 sub-centimeter hypoechoic nodules within the right thyroidlobe, the more superior lesion potentially a cyst but less than ideallyevaluated. This can be followed by ultrasound in 6 months. 2. Multiple nodules with solid characteristics and one within the midaspect of the right lobe, the largest measuring 15 mm x 11 mm x 9 mm.These have characteristics of a TI -RADS 3 entire TI-RADS CATEGORY 4lesions. Given their sizes a follow-up ultrasound in 6 months isrecommended. Michi Soria NP [facility] US THYROID Final Result documented in this encounter Visit Diagnoses Diagnosis Thyromegaly- Primary Goiter, unspecified Thyromegaly Goiter, unspecified documented in this encounter Additional Health Concerns Infection Onset Date Last Indicated Resolved Time CoV-Risk 03/16/2024 03/16/2024 03/27/2024 2:34 AM EST documented as of this encounter Care Teams Registration Scheduling Specialist Relationship Specialty Start Date End Date Michi Soria NP [address] [place] [address] [email or web address] PCP - General Family Medicine 12/17/19 04/01/22 Joe Reinoso DO 245 [facility] 20 [place] [phone] [email or web address] PCP - General Internal Medicine 04/02/22 02/05/23 Sejal Ngo MD [address] [place] [address] [email or web address] PCP - General Family Medicine 02/06/23 documented as of this encounter Additional Source Comments The information contained in this document represents components of the legal health record. It is not the complete legal health record.[facility]
--- OUTSIDE RECORDS SUMMARY | 2024-12-23 07:34 | XMS_ITS | Encounter Summary ---
Author Organization [facility] Address [address] [place] [address] Phone Care Team Providers Care Edging Machine Setter Name Role Phone Michi Soria NP Primary Care Provider [phone] Joe Reinoso DO Primary Care Provider [phone] Sejal Ngo MD Primary Care Provider + Reason for Referral * MRI/CAT Scan - Closed Specialty Diagnoses / Procedures Referred By Contjonathan t Referred To Contact Radiology Diagnoses Pulsatile tinnitus of right ear Sensorineural hearing loss (SNHL), unspecified laterality Procedures MRI Brain CHG MRI BRAIN COMBO Alexandra Nelson PA-C Phone: tel: fax: [email or web address] Referral ID Status Reason Start Date Expiration Date Visits Re quested Visits Authorized [id number] Closed 12/09/2021 02/07/2022 1 1 Encounter Details Date Type Department Care Team (Late st Contact Info) Description 12/12/2021 Transcribe Orders Virtual Department 30 [place] [address] Alexandra Nelson PA-C [address] [place] [address] [email or web address] Pulsatile tinnitus of right ear (Primary Dx); Sensorineural hearing loss (SNHL), unspecified laterality Social History Tobacco Use Types Packs/Day Years [...] Description 04/28/2025 10:15 AM EST Office Visit [facility] [place] Pulmonary, Allergy and Critical Care Medicine [address] [place] [address] Bradley Philip MD, [place] [address] [address] documented as of this encounter Results * MRI BRAIN (INTERNAL AUDITORY CANAL) WITH AND WITHOUT CONTRAST (01/31/2022 9:26 AM EST) Anatomical [...] head was performed without intravenous gadolinium, using [id number] technique. COMPARISON: None FINDINGS: MRI BRAIN AND [...] the head was performed withoutintravenous gadolinium, using [id number] technique. COMPARISON: None FINDINGS: MRI BRAIN AND [...] documented in this encounter Visit Diagnoses Diagnosis Pulsatile tinnitus of right ear- Primary Sensorineural hearing loss (SNHL), unspecified laterality Pulsatile tinnitus of right ear Sensorineural hearing loss (SNHL), unspecified laterality documented in this encounter Additional Health Concerns Infection Onset Date Last Indicated Resolved Time CoV-Risk 03/16/2024 03/16/2024 03/27/2024 2:34 AM EST documented as of this encounter Care Teams Edging Machine Setter Relationship Specialty Start Date End Date Michi Soria NP [address] [place] [address] [email or web address] PCP - General Family Medicine 12/17/19 04/01/22 Joe Reinoso DO 245 [facility] [address] [place] [id number] [email or web address] PCP - General Internal Medicine 04/02/22 02/05/23 Sejal Ngo MD [address] [place] [address] [email or web address] PCP - General Family Medicine 02/06/23 documented as of this encounter Additional Source Comments The information contained in this document represents components of the legal health record. It is not the complete legal health record.[facility]
--- OUTSIDE RECORDS SUMMARY | 2024-12-23 07:34 | XMS_ITS | Encounter Summary ---
Author Organization [facility] Address [address] [place] [address] Phone Care Team Providers Care Chemical Production Technician Name Role Phone Michi Soria NP Primary Care Provider [phone] Joe Reinoso DO Primary Care Provider [phone] Sejal Ngo MD Primary Care Provider + Reason for Referral * MRI/CAT Scan - Closed Specialty Diagnoses / Procedures Referred By Contjonathan t Referred To Contact Radiology Diagnoses Pulsatile tinnitus of right ear Procedures CT Temporal Bones (IAC/Posterior Fossa) CT Orbits CHG CT SCAN,ORBIT/SELLA/POST FOSSA/EAR,W/O Alexandra Nelson PA-C Phone: tel: fax: [email or web address] Referral ID Status Reason Start Date Expiration Date Visits Re quested Visits Authorized [id number] Closed 03/07/2022 05/06/2022 1 1 Encounter Details Date Type Department Care Team (Late st Contact Info) Description 03/19/2022 Transcribe Orders Virtual Department 30 [place] [address] Alexandra Nelson PA-C [address] [place] [address] Pulsatile tinnitus of right ear (Primary Dx) Social History Tobacco Use Types [...] Description 04/28/2025 10:15 AM EST Office Visit [facility] [place] Pulmonary, Allergy and Critical Care Medicine [address] [place] [address] [place] [address] [place] MD, MS [address] [address] documented as of this encounter Results * CT HEAD (INTERNAL AUDITORY CANALS/POSTERIOR FOSSA) WITHOUT CONTRAST (04/02/2022 11:13 AM EST) Anatomical Region Laterality Modality Head Computed Tomogra phy 04/03/2022 8:39 PM EST Impressions 04/05/2022 5:49 AM EST Intact bony covering of the carotid canal and jugular foramen on the right, suggesting that neither is likely to be the cause of the reported pulsatile tinnitus. No other cause for the reported pulsatile tinnitus identified by CT. Narrative 04/05/2022 5:[address] TEMPORAL BONES (IAC/POSTERIOR FOSSA) WITHOUT CONTRAST TECHNIQUE: Multidetector-row CT of the temporal bones was performed without intravenous contrast using tailored dose modulation techniques. Images were reconstructed in the axial, coronal, and sagittal planes. COMPARISON: Brain MRI 01/31/2022. FINDINGS: Right: External Ear: Small amount of cerumen. Middle Ear, Mastoid: Clear middle ear cavity and mastoid air cells. Ossicles intact and appropriately positioned. Patent oval window. Patent round window and clear round window niche. Sharp scutum. The facial nerve canal follows a normal course and appears covered by bone. Inner Ear: Homogeneous otic capsule attenuation without evidence for otosclerosis. Semicircular canals covered by bone. No evidence for an inner ear anomaly. The cochlea appears fully formed. The vestibular aqueduct is not enlarged. Intact bony covering of the carotid canal and jugular foramen (sigmoid plate intact). Left: External Ear: Small amount of cerumen. Middle Ear, Mastoid: Clear middle ear cavity and mastoid air cells. Ossicles intact and appropriately positioned. Patent oval window. Patent round window and clear round window niche. Sharp scutum. The facial nerve canal follows a normal course and appears covered by bone. Inner Ear: Homogeneous otic capsule attenuation without evidence for otosclerosis. Semicircular canals covered by bone. No evidence for an inner ear anomaly. The cochlea appears fully formed. The vestibular aqueduct is not enlarged. Intact bony covering of the carotid canal and jugular foramen. Temporomandibular Joints: No bony degenerative changes. Skull Base Foramina: Patent symmetric foramina ovale and spinosum. No destructive bone lesions. Imaged Paranasal Sinuses: Clear imaged portions of the paranasal sinuses and nasal cavity. Procedure Note Randy Moctezuma MD - 04/05/2022 CT TEMPORAL BONES (IAC/POSTERIOR FOSSA) WITHOUT CONTRAST TECHNIQUE: Multidetector-row CT of the temporal bones was performedwithout intravenous contrast using tailored dose modulation techniques.Images were reconstructed in the axial, coronal, and sagittal planes. COMPARISON: Brain MRI 01/31/2022. FINDINGS: Right: External Ear: Small amount of cerumen. Middle Ear, Mastoid: Clear middle ear cavity and mastoid air cells.Ossicles intact and appropriately positioned. Patent oval window. Patentround window and clear round window niche. Sharp scutum. The facialnerve canal follows a normal course and appears covered by bone. Inner Ear: Homogeneous otic capsule attenuation without evidence forotosclerosis. Semicircular canals covered by bone. No evidence for aninner ear anomaly. The cochlea appears fully formed. The vestibularaqueduct is not enlarged. Intact bony covering of the carotid canal andjugular foramen (sigmoid plate intact). Left: External Ear: Small amount of cerumen. Middle Ear, Mastoid: Clear middle ear cavity and mastoid air cells.Ossicles intact and appropriately positioned. Patent oval window. Patentround window and clear round window niche. Sharp scutum. The facialnerve canal follows a normal course and appears covered by bone. Inner Ear: Homogeneous otic capsule attenuation without evidence forotosclerosis. Semicircular canals covered by bone. No evidence for aninner ear anomaly. The cochlea appears fully formed. The vestibularaqueduct is not enlarged. Intact bony covering of the carotid canal andjugular foramen. Temporomandibular Joints: No bony degenerative changes. Skull Base Foramina: Patent symmetric foramina ovale and spinosum. Nodestructive bone lesions. Imaged Paranasal Sinuses: Clear imaged portions of the paranasal sinusesand nasal cavity. IMPRESSION: Intact bony covering of the carotid canal and jugular foramen on theright, suggesting that neither is likely to be the cause of the reportedpulsatile tinnitus. No other cause for the reported pulsatile tinnitusidentified by CT. Alexandra Nelson PA-C IMArnav CT HEAD/NECK Final R esult documented in this encounter Visit Diagnoses Diagnosis Pulsatile tinnitus of right ear- Primary Pulsatile tinnitus of right ear documented in this encounter Additional Health Concerns Infection Onset Date Last Indicated Resolved Time CoV-Risk 03/16/2024 03/16/2024 03/27/2024 2:34 AM EST documented as of this encounter Care Teams Chemical Production Technician Relationship Specialty Start Date End Date Michi Soria NP 73 [facility] [place] [address] [email or web address] PCP - General Family Medicine 12/17/19 04/01/22 Joe Reinoso DO 245 [facility] [address] [place] [address] [email or web address] PCP - General Internal Medicine 04/02/22 02/05/23 Sejal Ngo MD [address] [place] [address] [email or web address] PCP - General Family Medicine 02/06/23 documented as of this encounter Additional Source Comments The information contained in this document represents components of the legal health record. It is not the complete legal health record.[facility]
--- OUTSIDE RECORDS SUMMARY | 2024-12-23 07:34 | XMS_ITS | Encounter Summary ---
Author Organization [facility] Address [address] [place] [address] Phone Care Team Providers Care Hand Funnel Coater Name Role Phone Joe Reinoso DO Primary Care Provider [phone] Sejal Ngo MD Primary Care Provider + Encounter Details Date Type Department Care Team (Latest Contact Info) Description 08/13/2022 Transcribe Orders Virtual Department 30 [place] [address] Bigg Sanchez DO, MPH 30 [place] [address] [email or web address] Breast screening (Primary Dx) Social History Tobacco Use Types Packs/Day Years Used Date Smoking Tobacco: Never Smokeless Tobacco: Never Alcohol Use Standard Drinks/Week Comments Yes 0 (1 standard drink = 0.6 oz pur e alcohol) once a week Education Answer Date Recorded Are you interested in more education? Not on fletcher e 06/20/2022 Are you concerned about learning? Not on file 06/20/2022 No 06/20/2022 No 06/20/2022 Digital Access Answer Date Recorded No 07/18/2022 No 07/18/2022 Reliable internet access at home? Not on file 07/18/2022 Device with a working camera? Not on file Comments No Sex and Gender Information Value [...] Description 04/28/2025 10:15 AM EST Office Visit [facility] [place]monary, Allergy and Critical Care Medicine [address] [facility] [place] [address] [place] MD, MS 10 [facility] 2nd [place] [address] documented as of this encounter Results * BI MAMMOGRAM SCREENING WITH TOMOSYNTHESIS WITH CAD (BILATERAL) (10/24/2022 8:14 AM EDT) Anatomical Region Laterality Modality Breast Left, Breast Right, Breast Bilateral Bila teral Mammography 11/06/2022 1:57 PM EDT Impressions 11/06/2022 2:27 PM EDT No mammographic signs of malignancy. Annual screening is recommended. BI-RADS CATEGORY: 1 - Negative. DENSITY: There are scattered fibroglandular densities. Narrative 11/06/2022 2:27 PM EDT Bilateral mammography is performed in conjunction with computed aided detection. 3-D tomography along with 2-D C view imaging was also performed. This is a baseline exam. No suspicious masses, areas of architectural distortion or suspicious microcalcifications. Procedure Note Jas Rodriguez MD - 11/06/2022 Bilateral mammography is performed in conjunction with computed aideddetection. 3-D tomography along with 2-D C view imaging was alsoperformed. This is a baseline exam. No suspicious masses, areas of architectural distortion or suspiciousmicrocalcifications. IMPRESSION: No mammographic signs of malignancy. Annual screening is recommended. BI-RADS CATEGORY: 1 - Negative. DENSITY: There are scattered fibroglandular densities. us Bigg Sanchez DO, MPH IMG MG EXAMS Final Resu lt documented in this encounter Visit Diagnoses Diagnosis Breast screening- Primary Breast screening, unspecified Breast screening Breast screening, unspecified documented in this encounter Additional Health Concerns Infection Onset Date Last Indicated Resolved Time CoV-Risk 03/16/2024 03/16/2024 03/27/2024 2:34 AM EST documented as of this encounter Care Teams Hand Funnel Coater Relationship Specialty Start Date End Date Joe Reinoso DO 245 [facility] [address] [place] [address] [email or web address] PCP - General Internal Medicine 04/02/22 02/05/23 Sejal Ngo MD [address] [place] [address] [email or web address] PCP - General Family Medicine 02/06/23 documented as of this encounter Additional Source Comments The information contained in this document represents components of the legal health record. It is not the complete legal health record.[facility]
--- OUTSIDE RECORDS SUMMARY | 2024-12-23 07:34 | XMS_ITS | Encounter Summary ---
Author Organization [employer] Address [address] [place] [address] [address] [place] [address] Care Team Providers Care Crowning Inspector Name Role Phone Lacie Valle PA-C Primary Care Provider Unav ailable PcpThorssfunmilayo Primary Care Provider U navailable Encounter Details Date Type Department Care Team [...] as of this encounter Plan of Treatment Not on file documented as of this encounter Visit Diagnoses Not on filedocumented in this encounter Care Teams Crowning Inspector Relationship Specialty Start Date End Date Lacie Valle PA-C PCP - General Family Medicine 06/03/22 11/14/24 Thor Garcia PCP - General Family Medicine 11/15/24 documented as of this encounter
--- OUTSIDE RECORDS SUMMARY | 2024-12-23 07:34 | XMS_ITS | Encounter Summary ---
Author Organization [employer] Address [address] [place] [address] [address] [place] [address] Care Team Providers Care High Energy Forming Equipment Operator Name Role Phone Lacie Valle PA-C Primary Care Provider Unav ailable PcpThorssfunmilayo Primary Care Provider U navailable Encounter Details Date Type Department Care Team (Latest Contact Info) Description 08/08/2020 Abstract [facility] CONVERSIONS Dental, Provider, DDS Social [...] on filedocumented in this encounter Care Teams High Energy Forming Equipment Operator Relationship Specialty Start Date End Date Lacie Valle PA-C PCP - General Family Medicine 06/03/22 11/14/24 Thor Garcia PCP - General Family Medicine 11/15/24 documented as of this encounter
--- OUTSIDE RECORDS SUMMARY | 2024-12-23 07:34 | XMS_ITS | Encounter Summary ---
Author Organization [facility] Address [address] [place] [address] [place] [address] Phone Care Team Providers Care Tree Surgeon Helper Name Role Phone Michi Soria NP Primary Care Provider [phone] Joe Reinoso DO Primary Care Provider [phone] Sejal Ngo MD Primary Care Provider + Encounter Details Date Type Department Care Team (Late Contact Info) Description 03/19/2022 Procedure Pass [facility], Ct Scan - [address] [address] Social History Tobacco Use Types Packs/Day Years [...] Medicine 10 [facility] [place] [address] Bradley Philip MD, MS 10 [facility] 2nd [place] [address] [email or web address] documented as of this encounter Visit Diagnoses Not on filedocumented in this encounter Additional Health Concerns Infection Onset Date Last Indicated Resolved Time CoV-Risk 03/16/2024 03/16/2024 03/27/2024 2:34 AM EST documented as of this encounter Care Teams Tree Surgeon Helper Relationship Specialty Start Date End Date Michi Soria NP 73 [place] [address] [email or web address] PCP - General Family Medicine 12/17/19 04/01/22 Joe Reinoso DO 245 [facility] 20 [place] [phone] [email or web address] PCP - General Internal Medicine 04/02/22 02/05/23 Sejal Ngo MD [address] [place] [address] [email or web address] PCP - General Family Medicine 02/06/23 documented as of this encounter Additional Source Comments The information contained in this document represents components of the legal health record. It is not the complete legal health record.[facility]
--- OUTSIDE RECORDS SUMMARY | 2024-12-23 07:34 | XMS_ITS | Encounter Summary ---
Author Organization [facility] Address [address] [place] [address] Phone Care Team Providers Care Metal Riveter Name Role Phone Arleth Joe MELGAR Primary Care Provider [phone] Sejal Ngo MD Primary Care Provider + Encounter Details Date Type Department Care Team (Late st Contact Info) Description 08/13/2022 Procedure Pass [facility], [facility] 30 [place] [address] Social History Tobacco Use Types Packs/Day Years [...] Critical Care Medicine [address] [place] [address] Bradley Philip MD, MS 10 [facility] 2nd [place] [address] [email or web address] documented as of this encounter Visit Diagnoses Not on filedocumented in this encounter Additional Health Concerns Infection Onset Date Last Indicated Resolved Time CoV-Risk 03/16/2024 03/16/2024 03/27/2024 2:34 AM EST documented as of this encounter Care Teams Metal Riveter Relationship Specialty Start Date End Date Joe Reinoso DO [address] [place] [address] [address] [place] [address] [email or web address] PCP - General Internal Medicine 04/02/22 02/05/23 Sejal Ngo MD [address] [place] [address] [email or web address] PCP - General Family Medicine 02/06/23 documented as of this encounter Additional Source Comments The information contained in this document represents components of the legal health record. It is not the complete legal health record.[facility]
--- OUTSIDE RECORDS SUMMARY | 2024-12-23 07:34 | XMS_ITS | Encounter Summary ---
Author Organization [facility] Address [address] [place] [address] Phone Care Team Providers Care Postage Machine Operator Name Role Phone Cris Pelaez MD Primary Care Provider [phone] Tanika Dobbins CNP Primary Care Provider + Fior Carney MD Primary Care Provider Michi Soria NP Primary Care Provider [phone] Joe Reinoso DO Primary Care Provider [phone] Sejal Ngo MD Primary Care Provider + Encounter Details Date Type Department Care Team (Late st Contact Info) Description 04/23/2017 Ancillary Orders [facility], X-Ray - [address] [address] Nely Ng MD [address] [place] [address] [email or web address] Shortness of breath Social History Tobacco Use Types Packs/Day Years [...] [place] Pulmonary, Allergy and Critical Care Medicine [address] [place] [address] [place] Philip MD, MS 10 [facility] 2nd [place] [address] [email or web address] documented as of this encounter Results * XR CHEST PA AND LATERAL 2 VIEWS (04/23/2017 10:37 AM EST) Anatomical Region Laterality Modality Chest Radiographic Candice ging 04/23/2017 10:4 7 AM EST Impressions 04/23/2017 10:48 AM EST No acute chest disease. POS - [id number] Narrative 04/23/2017 10:48 AM EST HISTORY: As above. COMPARISON: 10/09/2016. CHEST RADIOGRAPH FINDINGS: 2 views obtained. Heart and mediastinum are normal. Lungs are clear. No acute soft tissue or bony findings. Procedure Note Cliff Allen MD - 04/23/2017 HISTORY: As above. COMPARISON: 10/09/2016. CHEST RADIOGRAPH FINDINGS: 2 views obtained. Heart and mediastinum are normal. Lungs are clear. Noacute soft tissue or bony findings. IMPRESSION: No acute chest disease. POS - [id number] us Nely Ng MD IMG XR CHEST Final Res ult documented in this encounter Visit Diagnoses Diagnosis Shortness of breath Shortness of breath documented in this encounter Additional Health Concerns Infection Onset Date Last Indicated Resolved Time CoV-Risk 03/16/2024 03/16/2024 03/27/2024 2:34 AM EST documented as of this encounter Care Teams Postage Machine Operator Relationship Specialty Start Date End Date Cris Pelaez MD PCP - General 12/09/16 01/11/19 Tanika Dobbins CNP [address] [place] [address] [email or web address] PCP - General Family Medicine 01/12/19 10/12/19 Fior Carney MD [address] [place] [address] [email or web address] PCP - General Family Medicine 10/13/19 12/16/19 Michi Soria NP 73 [place] [address] [email or web address] PCP - General Family Medicine 12/17/19 04/01/22 Joe Reinoso DO 245 [facility] 20 [place] [address] [email or web address] PCP - General Internal Medicine 04/02/22 02/05/23 Sejal Ngo MD [address] [place] [address] [email or web address] PCP - General Family Medicine 02/06/23 documented as of this encounter Additional Source Comments The information contained in this document represents components of the legal health record. It is not the complete legal health record.[facility]
--- OUTSIDE RECORDS SUMMARY | 2024-12-23 07:34 | XMS_ITS | Encounter Summary ---
Author Organization [facility] Address [address] [place] [phone] Phone Care Team Providers Care Environmental Health Manager Name Role Phone Joe Reinoso DO Primary Care Provider [phone] Sejal Ngo MD Primary Care Provider + Reason for Referral * MRI/CAT Scan - Closed Specialty Diagnoses / Procedures Referred By Star nolan Referred To Contact Radiology Diagnoses Palpitations Procedures NC Stress Result for Nuclear Stress Test Joe Reinoso DO 245 [facility] [address] [place] [phone] Phone: tel: fax: [email or web address] Referral ID Status Reason Start Date Expiration Date Visits Re quested Visits Authorized [id number] Closed 04/29/2022 06/16/2022 1 1 Encounter Details Date Type Department Care Team (Late st Contact Info) Description 04/29/2022 Ancillary Orders Non-Invasive Cardiology [address] [place] [address] Joe Reinoso DO 245 [facility], [address] [place], [place] [phone] Palpitations Social History Tobacco Use Types Packs/Day [...] Critical Care Medicine [address] [place] [address] [place] [address] Bradley Philip MD, MS 10 [facility] 2nd [place] [address] documented as of this encounter Results * NC Stress Result for Nuclear Stress Test (04/29/2022 11:59 AM EST) Max BP Systolic 150 mmHg [facility] Max BP Diastolic 88 mmHg [facility] Max HR 176 BPM [facility] Resting HR 86 BPM [facility] Resting BP Systolic 122 mmHg [facility] Resting BP Diastolic 88 mmHg [facility] Peak METS 10.1 METS [facility] Peak HR 173 BPM [facility] Anatomical Region Laterality Modality Heart Other 04/29/2022 11:1 2 AM EST 04/29/2022 11:57 AM EST Narrative 04/30/2022 9:21 AM EST I agree with the findings and conclusion of the supervising advanced practitioner.Negative stress test at average functional capacity of 10.10 METS, 97 % of MPHR, without symptoms, and without EKG changes suggestive of ischemia. Pereyra treadmill score of +7.5 consistent with low risk. Nuclear images are pending and will be reported separately. Response to Stress The patient exercised for minutes seconds, achieving 10.1 METS at peak exercise. Baseline blood pressure was 122/88 mmHg, and baseline heart rate was 86 bpm. The patient achieved a peak heart rate of 173 bpm, which is% of their maximum predicted heart rate. Pt exercised for 7:30 minutes on a Darrick protocol achieving 10.10 METS. Test terminated due to fatigue. Baseline resting heart rate was 64 bpm. Maximum heart rate achieved was 176 bpm (97% of MPHR). 1. EKG: Baseline EKG showed sinus rhythm at 64 bpm. In pretest position, there was no significant change. With exercise, there were no ST segment changes suggestive of ischemia. 2. SYMPTOMS: No chest pain. Patient experienced fatigue at peak exercise. Symptoms resolved spontaneously 2-3 minutes into recovery. 3. EXERCISE PHYSIOLOGY - Average functional capacity for age. Resting BP 122/88, 150/88 at peak exercise and 140/82 at discharge. Normal BP at baseline with normal BP response to exercise. 4. ARRHYTHMIAS: None STRESS CONCLUSION: Negative stress test at average functional capacity of 10.10 METS, 97 % of MPHR, without symptoms, and without EKG changes suggestive of ischemia. Pereyra treadmill score of +7.5 consistent with low risk. Nuclear images are pending and will be reported separately. Kvng Triplett GREEN FEED ATTENDANT w/ Dr. Jay. Joe Reinoso DO CV NM CARDIAC Final Result documented in this encounter Visit Diagnoses Diagnosis Palpitations Palpitations documented in this encounter Additional Health Concerns Infection Onset Date Last Indicated Resolved Time CoV-Risk 03/16/2024 03/16/2024 03/27/2024 2:34 AM EST documented as of this encounter Care Teams Environmental Health Manager Relationship Specialty Start Date End Date Joe Reinoso DO [address] [place] [address] 20 [place] [address] [email or web address] PCP - General Internal Medicine 04/02/22 02/05/23 Sejal Ngo MD [address] [place] [phone] [email or web address] PCP - General Family Medicine 02/06/23 documented as of this encounter Additional Source Comments The information contained in this document represents components of the legal health record. It is not the complete legal health record.[facility]
--- OUTSIDE RECORDS SUMMARY | 2024-12-23 07:34 | XMS_ITS | Encounter Summary ---
Author Organization [facility] Address [address] [place] [phone] Phone Care Team Providers Care Diplomatic Interpreter/Translator Name Role Phone Joe Reinoso DO Primary Care Provider [phone] Sejal Ngo MD Primary Care Provider + Reason for Referral * MRI/CAT Scan - Closed Specialty Diagnoses / Procedures Referred By Star nolan Referred To Contact Radiology Diagnoses Palpitations Shortness of breath Procedures NC Myocardial Perfusion Exercise Multiple CHG MYOCARDIAL SPECT MULTIPLE STUDIES Joe Reinoso DO 245 [facility], [address] [place] [address] Phone: tel: fax: [email or web address] Referral ID Status Reason Start Date Expiration Date Visits Re quested Visits Authorized [id number] Closed 04/17/2022 06/16/2022 4 4 Encounter Details Date Type Department Care Team (Latest Contact Info) Description 04/10/2022 Transcribe Orders Virtual Department [address] [place] [address] Joe Reinoso DO 245 [facility], [address] [place], [place] [phone] [email or web address] Palpitations (Primary Dx) Social History Tobacco Use Types [...] Description 04/28/2025 10:15 AM EST Office Visit [facility] Pulmonary, Allergy and Critical Care Medicine [address] [place] [address] [place] [address] Bradley Philip MD, MS 10 [facility] 2nd [place] [address] documented as of this encounter Results * NC Myocardial Perfusion Exercise Multiple (04/29/2022 1:29 PM EST) Anatomical Region Laterality Modality Heart, Vascular Nuclear Medicine 04/30/2022 4:38 PM EST Impressions 04/30/2022 4:44 PM EST No findings of significant prior infarction or current ischemia are confirmed. Estimated left ventricular ejection fraction of greater than 70%. Narrative 04/30/2022 4:44 PM EST EXAM: NC MYOCARDIAL PERFUSION EXERCISE, MULTI HISTORY: Outside Radiology Order COMPARISON: None TECHNIQUE: Patient exercised for 7:30 minutes on a Darrick protocol achieving 10.10 METS. Test terminated due to fatigue. Maximal heart rate was 176 (97 % MPHR). Images of the heart obtained in the short, horizontal and vertical long axes. DOSE: Rest dose 9.6 mCi Tc-99m sestamibi, Stress dose 27.5 mCi Tc-99m sestamibi FINDINGS: There appears to be normal distribution of tracer throughout the left ventricular myocardium at both stress and rest. Gated wall motion study demonstrates no motion abnormality with preserved thickening. Ejection fraction is mildly decreased at 65 %. T.I.D. ratio indeterminant at 0.95. Procedure Note Shiva Andujar MD - 04/30/2022 EXAM: NC MYOCARDIAL PERFUSION EXERCISE, MULTI HISTORY: Outside Radiology Order COMPARISON: None TECHNIQUE: Patient exercised for 7:30 minutes on a Darrick protocolachieving 10.10 METS. Test terminated due to fatigue. Maximal heart ratewas 176 (97 % MPHR). Images of the heart obtained in the short, horizontaland vertical long axes. DOSE: Rest dose 9.6 mCi Tc-99m sestamibi, Stress dose 27.5 mCi Tc-99msestamibi FINDINGS: There appears to be normal distribution of tracer throughout theleft ventricular myocardium at both stress and rest. Gated wall motion study demonstrates no motion abnormality with preservedthickening. Ejection fraction is mildly decreased at 65 %. T.I.D. ratio indeterminant at 0.95. IMPRESSION: No findings of significant prior infarction or current ischemia areconfirmed. Estimated left ventricular ejection fraction of greater than70%. Joe Reinoso DO CV NM CARDIAC Final Result documented in this encounter Visit Diagnoses Diagnosis Palpitations- Primary Palpitations documented in this encounter Additional Health Concerns Infection Onset Date Last Indicated Resolved Time CoV-Risk 03/16/2024 03/16/2024 03/27/2024 2:34 AM EST documented as of this encounter Care Teams Diplomatic Interpreter/Translator Relationship Specialty Start Date End Date Joe Reinoso DO 245 [facility] 20 [place] [address] [email or web address] PCP - General Internal Medicine 04/02/22 02/05/23 Sejal Ngo MD [address] [place] [address] [email or web address] PCP - General Family Medicine 02/06/23 documented as of this encounter Additional Source Comments The information contained in this document represents components of the legal health record. It is not the complete legal health record.[facility]
--- OUTSIDE RECORDS SUMMARY | 2024-12-23 07:34 | XMS_ITS | Clinical Summary ---
Author Organization [facility] Address [address] [place] [address] Phone Care Team Providers Care Auto Leasing Manager Name Role Phone Sejal Ngo MD Primary Care Provider + Allergies No known active allergies Medications levonorgestreL (MIRENA) 20 mcg/24 hours (7 yrs) 52 mg intrauterine device 1 Device by Intrauterine route once. Inserted 05/22/17 Active atorvastatin (LIPITOR) 10 MG tablet Take 10 mg by mouth daily. Active cholecalciferol (VITAMIN D3) 400 unit tablet Take 400 Units by mouth daily. Active nystatin ointment Apply topically 2 (two) times a day. 30 g 2 Active Additional Information Patient not taking.Reported on 03/11/2023 triamcinolone acetonide 0.1 % ointment Apply topically 2 (two) times a day. Thin film for up to 4 weeks, can then use prn 30 g 2 Active Additional Information Patient not taking.Reported on 03/11/2023 citalopram (CELEXA) 20 MG tablet Take 20 mg by mouth daily. Active ALPRAZolam (XANAX) 0.5 MG tablet Take 1 tablet by mouth 2 (two) times a day. Active famotidine (PEPCID) 40 MG tablet Take 1 tablet by mouth daily. Active dicyclomine (BENTYL) 10 MG capsule Take 1 capsule (10 mg total) by mouth 4 (four) times a day before meals and nightly. 20 capsule 5 Active metoclopramide HCl (REGLAN) 10 MG tablet Take 1 tablet (10 mg total) by mouth 3 (three) times a day as needed for nausea. 10 tablet 5 Active Active Problems Problem Noted Date Diagnosed Date Abnormal uterine bleeding 03/11/2023 Overview (03/11/2023): Every 3 weeks for 3 months after 4 years amenorrhea on Mirena IUD. Assessment & Plan (03/11/2023 1:49 PM EST): Normal exam, IUD thread seen in appropriate length. Will double check on an ultrasound to make sure it is in correct location, assess for any polyp. Also follow-up the small hemorrhagic cyst seen 4 months ago Vulvar rash 06/26/2021 Overview (06/26/2021): Labia majora- c/w eczema; inner thigh more c/w candidiasis Assessment & Plan (06/26/2021 10:49 AM EDT): Rx for triamcinolone and nystatin sent and discussed Recommend no deodorant or fragranced soaps Encounters Date Type Department Care Team Description 11/28/2024 Transcribe Orders [facility] Pulmonary, Allergy and Critical Care Medicine [address] [place] [address] Dali Lorenzo PA from Last 3 Months Immunizations Immunization Administration Dates Next Due COVID-19 (Pre-12/15) Pfizer Vaccine, mRNA, PF Influenza Split (Incl. Purified Surface Antigen) 01/13/2008 Rho (D) Immune Globulin 01/13/2008 Family History Medical History Relation Comments No Known Problems Father Heart disease Maternal Grandfather No Known Problems Maternal Grandmother No Known Problems Mother Relation Status Comments Father Alive Maternal Grandfather Maternal Grandmother Alive Mother Alive Social History Tobacco Use Types Packs/Day Years Used Date Smoking Tobacco: Never Smokeless Tobacco: Never Alcohol Use Standard Drinks/Week Comments Not Currently 0 (1 standard drink = 0.6 oz [...] with a working camera? Not on file Intimate Partner Violence Answer Date R ecorded Are you denied basic needs s uch as food, clothing, or medical care? No 03/16/2024 In the past 12 months have y ou been in a relationship with a person who hurts, threatens, or tries to control you? No 03/16/2024 Are you denied basic needs s uch as food, clothing, or medical care? No 03/16/2024 In the past 12 months have y ou been in a relationship with a person who hurts, threatens, or tries to control you? No 03/16/2024 Comments No Sex and Gender Information Value Date Recorded Sex Assigned at Female 12/15/2020 1:20 AM EDT Legal Sex Female 9:19 PM EDT Gender Identity Female 12/15/2020 1:20 AM EDT Sexual Orientation Straight 12/15/2020 1: 20 AM EDT Last Filed Vital Signs Vital Sign Reading Time Taken Comments Blood Pressure 140/72 03/16/2024 5:54 AM EST Pulse 88 03/16/2024 5:54 AM EST Temperature 37 C (98.6 F) 03/16/2024 5:54 AM EST Respiratory Rate 20 03/16/2024 5:54 AM EST Oxygen Saturation 99% 03/16/2024 5:54 AM EST Inhaled Oxygen Concentration - - Weight 110.7 kg (244 lb) 03/16/2024 1:24 AM EST Height 167.6 cm (5' 6 ) 03/16/2024 1:24 AM EST Body Mass Index 39.38 03/16/2024 1:24 AM EST Plan of Treatment Upcoming Encounters Date Type Department Care Team (Late st Contact Info) Description 04/28/2025 10:15 AM EST Office Visit [facility] Pulmonary, Allergy and Critical Care Medicine [address] [place] [address] Bradley Philip MD, MS [address] [place] [phone] [email or web address] Health Maintenance Due Date Last Done Comments Adult Td,Tdap Booster 1980 DEPRESSION SCREENING 1993 HEPATITIS C SCREENING 11/23/1999 HIV ONE-TIME SCREENING (18-6 5 YEARS) 11/23/1999 PAP SMEAR 06/26/2024 06/26/2021, 05/30/2013 INFLUENZA VACCINE (#1) 2024 3, 01/13/2008 COVID-19 VACCINE (2 6 season) 2024 11/21/2022, 06/09/2020, 05/17/2020 MAMMOGRAM 10/24/2024 10/24/2022 IUD 05/22/2025 05/22/2017 SCREENING FOR DIABETES 09/09/2026 4, 04/15/2022 SMOKING STATUS SCREENING (On ce After 26 Yrs) Completed 09/10/2023 HEPATITIS A VACCINES Aged Out No long er eligible based on patient's age to complete this topic HIB VACCINES Aged Out No longer eligi ble based on patient's age to complete this topic MENINGOCOCCAL VACCINES (ACWY) Aged Out No longer eligible based on patient's age to complete this topic MENINGOCOCCAL VACCINES (B) Aged Out N o longer eligible based on patient's age to complete this topic PNEUMOCOCCAL VACCINES (0-49 years) Aged Out No longer eligible b ased on patient's age to complete this topic Medical Devices Not on file Procedures Procedure Name Priority Date/Time Associated Diagnosis Comments BI MAMMOGRAM SCREENING WITH TOMOSYNTHESIS WITH CAD (BILATERAL) Routine 10/24/2022 8:14 AM EDT Breast screening PAP TEST Routine 06/26/2021 12:00 AM EDT from Last 3 Months or Most Recently Relevant to Health Maintenance Results * BI MAMMOGRAM SCREENING WITH TOMOSYNTHESIS [...] MPH IMG MG EXAMS Final Resu lt * Pap Smear (06/26/2021 12:00 AM EDT) 06/26/2021 06/27/2021 10: 35 AM EDT Narrative SEE NARRATIVE - 07/04/2021 1:42 PM EDT [address] [address] Glass Loading Equipment Tender: Eve Gongora MD FRAMING MECHANIC Cytology Report FINAL DIAGNOSIS A. PAP SMEAR (SUREPATH) CE: SPECIMEN ADEQUACY: Satisfactory for evaluation; transformation zone present. INTERPRETATION: NEGATIVE FOR INTRAEPITHELIAL LESION OR MALIGNANCY. Reactive changes. Fungal organisms morphologically consistent with Anju species. Electronically Signed Out By: MD Amadou Clarke CT(ASCP) By his/her signature above, the pathologist listed as making the Final Diagnosis certifies that he/she has personally reviewed this case and confirmed or corrected the diagnosis. The Pap test is a screening test primarily for squamous cancers and precursors and has associated false-negative and false-positive results. New technologies such as liquid-based preparations may decrease but will not eliminate all false-negative results. Regular sampling and follow-up of unexplained clinical signs and symptoms are recommended to minimize false negative results. PROCEDURES/ADDENDA HPV Testing (Requested) Ordered Date: 06/27/2021 A. PAP SMEAR (SUREPATH) CE: Human Papilloma Virus Test Negative for high-risk human papillomavirus types 16, 18, 45 and the Other high risk probe set (Includes 31, 33, 35, 39, 51, 52, 56, 58, 59, 66, 68) by [employer] HR-HPV analysis. Clinical correlation is advised. This HPV test was performed at [facility], [address] [place] [address]. This test has been FDA approved for Sure[facility] cervical cytology specimens. The accuracy and precision of this test for all other specimen sources has been verified in the Cytopathology Laboratory of the [facility] and has not been cleared or approved by the U.S. Food and Drug Administration. Clinical correlation is advised. CLINICAL HISTORY Date of Last Menstrual Period: Not Provided Menstrual History: No LMP given Other Clinical Conditions: Screening Pap SPECIMEN SOURCE A: PAP SMEAR (SUREPATH) CE Patient Name: FREDERICTHERESA : 1980 (Age: 40) Sex: F Institution: [facility] Location: [facility] Date of Collection: 06/26/2021 Date of Reported: 07/04/2021 13:42 Results to: Amita Dominguez MD Amita Dominguez MD CYTOLOGY ORDERABLES Final Result SEE NARRATIVE from Last 3 Months or Most Recently Relevant to Health Maintenance Insurance [facility] [address] [address] [place] [address] [place] [address] [place] [address]O [facility] HMO Care Teams Auto Leasing Manager Relationship Specialty Start Date End Date Sejal Ngo MD [address] [place] [address] [email or web address] PCP - General Family Medicine 02/06/23 Additional Source Comments The information contained in this document represents components of the legal health record. It is not the complete legal health record.[facility]
--- OUTSIDE RECORDS SUMMARY | 2024-12-23 07:34 | XMS_ITS | Encounter Summary ---
Author Organization [facility] Address [address] [place] [address] [place] [address] Phone Care Team Providers Care Air Lift Operator Name Role Phone [email or web address] Gillianclayton Primary Care Provider [phone] Sejal Ngo MD Primary Care Provider + Encounter Details Date Type Department Care Team (Late st Contact Info) Description 10/08/2022 Transcribe Orders Virtual Department [address] [place] [address] Radha Bolden PA [address] [place] [address] [email or web address] Pelvic and perineal pain (Primary Dx) Social History Tobacco Use Types [...] Description 04/28/2025 10:15 AM EST Office Visit [facility] Pulmonary, Allergy and Critical Care Medicine 10 [facility] [place] [address] Bradley Philip MD, MS [address] [place] [address] documented as of this encounter Results * US PELVIS TRANSABDOMINAL PLUS TRANSVAGINAL (10/30/2022 5:38 PM EDT) Anatomical Region Laterality Modality Pelvis, Uterus/Adnexa Ultrasound 10/31/2022 5:47 AM EDT Impressions 10/31/2022 8:17 PM EDT Impression: 2.1 cm cystic lesion in the right ovary with low-level internal echoes could represent an endometrioma hemorrhagic/proteinaceous follicle. No other potential cause for pain identified. Narrative 10/31/2022 8:17 PM EDT US PELVIS TRANSABDOMINAL PLUS TRANSVAGINAL TECHNIQUE: Pelvic Ultrasound Transabdominal performed for global imaging of the pelvis. Pelvic Ultrasound Transvaginal performed for detailed imaging of the endometrium and/or adnexa. COMPARISON: PELVIS & ENDOVAG Findings: UTERUS: The uterus measures 8.6 cm long axis, retroflexed. The endometrial echocomplex measures 0.9 cm. Visualized portions of the IUD are satisfactorily positioned within the endometrial cavity. OVARIES/ADNEXA: Nonenlarged bilateral ovaries. 2.1 cm right ovarian cystic lesion with homogeneous low-level internal echoes. Left ovarian corpus luteum. No extraovarian adnexal mass. PELVIS: No free fluid. Procedure Note Benton Tenorio MD - 10/31/2022 US PELVIS TRANSABDOMINAL PLUS TRANSVAGINAL TECHNIQUE: Pelvic Ultrasound Transabdominal performed for global imagingof the pelvis. Pelvic Ultrasound Transvaginal performed for detailedimaging of the endometrium and/or adnexa. COMPARISON: PELVIS & ENDOVAG Findings: UTERUS: The uterus measures 8.6 cm long axis, retroflexed. Theendometrial echocomplex measures 0.9 cm. Visualized portions of the IUDare satisfactorily positioned within the endometrial cavity. OVARIES/ADNEXA: Nonenlarged bilateral ovaries. 2.1 cm right ovarian cysticlesion with homogeneous low-level internal echoes. Left ovarian corpusluteum. No extraovarian adnexal mass. PELVIS: No free fluid. IMPRESSION: Impression: 2.1 cm cystic lesion in the right ovary with low-level internal echoescould represent an endometrioma hemorrhagic/proteinaceous follicle. No other potential cause for pain identified. us Radha LR IMG US PELVIS Final Re sult documented in this encounter Visit Diagnoses Diagnosis Pelvic and perineal pain- Primary Pelvic and perineal pain documented in this encounter Additional Health Concerns Infection Onset Date Last Indicated Resolved Time CoV-Risk 03/16/2024 03/16/2024 03/27/2024 2:34 AM EST documented as of this encounter Care Teams Air Lift Operator Relationship Specialty Start Date End Date Joe Reinoso DO [address] [place] [address] 20 [place] [address] [email or web address] PCP - General Internal Medicine 04/02/22 02/05/23 Sejal Ngo MD [address] [place] [phone] [email or web address] PCP - General Family Medicine 02/06/23 documented as of this encounter Additional Source Comments The information contained in this document represents components of the legal health record. It is not the complete legal health record.[facility]
--- OUTSIDE RECORDS SUMMARY | 2024-12-23 07:34 | XMS_ITS | Encounter Summary ---
Author Organization [facility] Address [address] [place] [id number] Phone Care Team Providers Care Grain Commodity Manager Name Role Phone Cris Pelaez MD Primary Care Provider [phone] Tanika Dobbins CNP Primary Care Provider + Fior Carney MD Primary Care Provider Michi Soria NP Primary Care Provider [phone] Joe Reinoso DO Primary Care Provider [phone] Sejal Ngo MD Primary Care Provider + Encounter Details Date Type Department Care Team (Latest Contact Info) Description 05/07/2017 Transcribe Orders Virtual Department [address] [place] [address] Nely Ng MD [address] [place] [address] [email or web address] Palpitations (Primary Dx) Social History Tobacco Use [...] Critical Care Medicine [address] [place] [address] [place] [address] Bradley Philip MD, MS [address] [facility] 2nd [place] [address] [email or web address] documented as of this encounter Visit Diagnoses Diagnosis Palpitations- Primary documented in this encounter Additional Health Concerns Infection Onset Date Last Indicated Resolved Time CoV-Risk 03/16/2024 03/16/2024 03/27/2024 2:34 AM EST documented as of this encounter Care Teams Grain Commodity Manager Relationship Specialty Start Date End Date Cris Pelaez MD [email or web address] PCP - General 12/09/16 01/11/19 Tanika Dobbins CNP [address] [place] [address] [email or web address] PCP - General Family Medicine 01/12/19 10/12/19 Fior Carney MD [address] [place] [address] [email or web address] PCP - General Family Medicine 10/13/19 12/16/19 Michi Soria NP [address] [place] [address] [email or web address] PCP - General Family Medicine 12/17/19 04/01/22 Jeo Reinoso DO [address] [facility] [address] [place] [id number] PCP - General Internal Medicine 04/02/22 02/05/23 Sejal Ngo MD [address] [place] [address] [email or web address] PCP - General Family Medicine 02/06/23 documented as of this encounter Additional Source Comments The information contained in this document represents components of the legal health record. It is not the complete legal health record.[facility]
--- OUTSIDE RECORDS SUMMARY | 2024-12-23 07:35 | XMS_ITS | Data Portability ---
Author Organization [place] [facility], MAIN OFFICE Address [address] [place] [id number] Assessment Encounter Date Assessment Date Assessment LastModified by Organization Details LastModified Time 11/14/2021 11/14/2021 Spent 45 minutes for evaluation and management, including face to face interaction, review of labs and notes from specialist, discussion and coordination of care. Not available 11/15/2021 08:55:03 12/12/2021 12/12/2021 Spent 20 minutes for evaluation and management, including face to face interaction, review of labs and notes from specialist, discussion and coordination of care. Not available 12/12/2021 10:53:16 03/15/2022 03/15/2022 Spent 20 minutes for evaluation and management, including face to face interaction, review of labs and notes from specialist, discussion and coordination of care. Not available 03/15/2022 11:02:16 03/31/2022 03/31/2022 Spent 30 minutes for evaluation and management, including face to face interaction, review of labs and notes from specialist, discussion and coordination of care. Not available 03/31/2022 12:13:12 04/10/2022 04/10/2022 Spent 25 minutes for evaluation and management, including face to face interaction, review of labs and notes from specialist, discussion and coordination of care. Not available 04/14/2022 19:39:58 Plan of Treatment Reminders Order Date Submit Date Provider Last Modified By Organization Details Last Modified Time Details Appointments None recorded. Lab H pylori Ag, stool - stool test for H pylori 2022 023 MARCELINO [facility] (Centralized Electronic Ordering - All Locations), Patient Can Go To The Location Of Their Choice, 3 09:54:56 unlisted lab - calprotecti n,fecal 2022 023 MARCELINO [facility] (Centralized Electronic Ordering - All Locations), Patient Can Go To The Location Of Their Choice, 3 09:54:51 CMP, serum or plasma 2022 023 MARCELINO [facility] (Centralized Electronic Ordering - All Locations), Patient Can Go To The Location Of Their Choice, 3 15:29:45 CBC w/ auto diff 2022 023 MARCELINO [facility] (Centralized Electronic Ordering - All Locations), Patient Can Go To The Location Of Their Choice, 3 16:53:36 ferritin, serum or plasma 2022 023 MARCELINO [facility] (Centralized Electronic Ordering - All Locations), Patient Can Go To The Location Of Their Choice, 3 15:38:27 folate, serum 2022 023 MARCELINO [facility] (Centralized Electronic Ordering - All Locations), Patient Can Go To The Location Of Their Choice, 3 15:38:28 iron + total iron-bindin g capacity (TIBC), serum 2022 023 MARCELINO [facility] (Centralized Electronic Ordering - All Locations), Patient Can Go To The Location Of Their Choice, 3 15:29:47 vitamin B12, serum 2022 023 MARCELINO [facility] (Centralized Electronic Ordering - All Locations), Patient Can Go To The Location Of Their Choice, 3 15:38:25 TSH, serum or plasma 2022 023 MARCELINO [facility] (Centralized Electronic Ordering - All Locations), Patient Can Go To The Location Of Their Choice, 3 15:38:29 lipid panel, serum 2022 023 MARCELINO [facility] (Centralized Electronic Ordering - All Locations), Patient Can Go To The Location Of Their Choice, [id number] 3 15:29:48 Referral otolaryngol ogist referral 2021 022 [facility] (Records Request Only), [address] [place], [address], 2 14:36:35 Procedures treadmill nuclear stress test (PROC) - Frequent ED visit for CP. + Obesity and hiatal hernia. + anxiety which started on meds reports some SOB with running on treadmill. Some palpitation at night. please perform an exercise stress test with EKG. Thank you 2022 023 [facility] (Cardiology), [address] [place] [address], [id number], 3 09:25:53 Surgeries None recorded. Imaging XR, shoulder, 2 or more view - recent fall, pain with reaching back and lifting 2022 023 [facility], [address] [place] [address], [address], 3 05:00:55 Medication Orders Celexa 20 mg tablet 2022 023 [facility]/Pharmacy #[id number], [address] [place] [address], [id number], 3 12:44:23 magnesium oxide 400 mg (241.3 mg magnesium) tablet 2022 023 [facility]/Ph[facility] #0447, [address] [place] [address], [address], 3 12:51:47 Celexa 10 mg tablet 2022 023 srastegar 1 [facility]/Pharmacy #0447, [address] [place] [address], [id number], 3 10:51:15 Protonix 40 mg tablet,lane yed release 2022 023 [facility] #044[facility], [address] [place] [address], [address], 3 12:17:59 atorvastati n 10 mg tablet 2022 023 [facility] [address] [place] [address], [address], 3 12:18:00 diclofenac 3 % topical gel 2022 023 [facility] [address] [place] [address], [address], 3 10:17:09 meloxicam 7.5 mg tablet 2022 023 [facility] [address] [place] [address], [address], 3 10:17:10 magnesium 400 mg (as magnesium oxide) tablet 2022 023 [facility] [address] [place] [address], [address], 3 10:17:10 mecobalamin (vitamin B12) 5,000 mcg disintegrat ing tablet 2021 022 [facility] [address] [place] [address], [address], 2 11:25:39 Xanax 0.5 mg tablet 2021 022 [facility] [address] [place] [address], [address], 2 08:49:22 omeprazole 20 mg capsule,del ayed release 2021 022 [facility] [address] [place] [address], [address], 2 08:44:01 Patient TargetsNo targets recorded. Patient InstructionsNo instructions recorded. 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 Referring Physician: Joe Reinoso, Internal Medicine, Encounter Date: 11/14/2021 Results Created Date Observation Date Name Description Value Unit Range Abnormal Flag Note LastModifiedBy Organization Detail LastModifiedTime 11/14/1911/13/2021 COMPL ETE CBC WITH DIFF WBC 6.6 K/mm3 (4.0-1 1.0) Not Available [facility] (Centralized Electronic Ordering - All Locations) Patient Can Go To The Location Of Their Choice, 11/13/2021 14:47:05 11/14/19 22 11/13/2021 COMPL ETE CBC WITH DIFF RBC 4.64 M/mm3 (4.20- 5.40) Not Available [facility] (Centralized Electronic Ordering - All Locations) Patient Can Go To The Location Of Their Choice, 11/13/2021 14:47:05 11/14/1911/13/2021 COMPL ETE CBC WITH DIFF HGB 14.4 gm/dL (11.7- 15.5) Not Available [facility] (Centralized Electronic Ordering - All Locations) Patient Can Go To The Location Of Their Choice, 11/13/2021 14:47:05 11/14/1911/13/2021 COMPL ETE CBC WITH DIFF HCT 43.7 % (35.7- 45.8) Not Available [facility] (Centralized Electronic Ordering - All Locations) Patient Can Go To The Location Of Their Choice, 11/13/2021 14:47:05 11/14/1911/13/2021 COMPL ETE CBC WITH DIFF MCV 94.2 fL (80.0- 100.0) Not Available [facility] (Centralized Electronic Ordering - All Locations) Patient Can Go To The Location Of Their Choice, 11/13/2021 14:47:05 11/14/1911/13/2021 COMPL ETE CBC WITH DIFF MCH 31.0 pg (27.0- 34.0) Not Available [facility] (Centralized Electronic Ordering - All Locations) Patient Can Go To The Location Of Their Choice, 11/13/2021 14:47:05 11/14/1911/13/2021 COMPL ETE CBC WITH DIFF MCHC 33.0 g/dL (33.0- 37.0) Not Available [facility] (Centralized Electronic Ordering - All Locations) Patient Can Go To The Location Of Their Choice, 11/13/2021 14:47:05 11/14/1911/13/2021 COMPL ETE CBC WITH DIFF plt 372 K/mm3 (150-4 60) Not Available [facility] (Centralized Electronic Ordering - All Locations) Patient Can Go To The Location Of Their Choice, 11/13/2021 14:47:05 11/14/19 22 11/13/2021 COMPL ETE CBC WITH DIFF RDW-SD 41.9 fL (<47.0 ) Not Available [facility] (Centralized Electronic Ordering - All Locations) Patient Can Go To The Location Of Their Choice, 11/13/2021 14:47:05 11/14/1911/13/2021 COMPL ETE CBC WITH DIFF MPV 9.5 fL (9.4-1 2.4) Not Available [facility] (Centralized Electronic Ordering - All Locations) Patient Can Go To The Location Of Their Choice, 11/13/2021 14:47:05 11/14/1911/13/2021 COMPL ETE CBC WITH DIFF automated NRBC 0.0 #/100 _WBC' s Not Available [facility] (Centralized Electronic Ordering - All Locations) Patient Can Go To The Location Of Their Choice, 11/13/2021 14:47:05 11/14/1911/13/2021 COMPL ETE CBC WITH DIFF abs. NRBC 0.0 K/mm3 Not Available [facility] (Centralized Electronic Ordering - All Locations) Patient Can Go To The Location Of Their Choice, 11/13/2021 14:47:05 11/14/1911/13/2021 COMPL ETE CBC WITH DIFF neut # 4.1 K/mm3 (1.3-7 .0) Not Available [facility] (Centralized Electronic Ordering - All Locations) Patient Can Go To The Location Of Their Choice, 11/13/2021 14:47:05 11/14/19 22 11/13/2021 COMPL ETE CBC WITH DIFF lymph # 1.6 K/mm3 (0.8-3 .1) Not Available [facility] (Centralized Electronic Ordering - All Locations) Patient Can Go To The Location Of Their Choice, 11/13/2021 14:47:11/14/1911/13/2021 COMPL ETE CBC WITH DIFF mono# 0.7 K/mm3 (0.4-0 .9) Not Available [facility] (Centralized Electronic Ordering - All Locations) Patient Can Go To The Location Of Their Choice, 11/13/2021 14:47:11/14/1911/13/2021 COMPL ETE CBC WITH DIFF eo # 0.2 K/mm3 (0.0-0 .4) Not Available [facility] (Centralized Electronic Ordering - All Locations) Patient Can Go To The Location Of Their Choice, 11/13/2021 14:47:11/14/1911/13/2021 COMPL ETE CBC WITH DIFF baso # 0.0 K/mm3 (0.0-0 .1) Not Available [facility] (Centralized Electronic Ordering - All Locations) Patient Can Go To The Location Of Their Choice, 11/13/2021 14:47:11/14/1911/13/2021 COMPL ETE CBC WITH DIFF abs. imm gran 0.0 K/mm3 Not Available [facility] ([facility] Order[facility] - All Locations) Patient Can Go To The Location Of Their Choice, 11/13/2021 14:47:11/14/1911/13/2021 COMPL ETE CBC WITH DIFF neut 62.5 % (44-76 ) Not Available [facility] (Centralized Electronic Ordering - All Locations) Patient Can Go To The Location Of Their Choice, 11/13/2021 14:47:11/14/1911/13/2021 COMPL ETE CBC WITH DIFF lymph 23.8 % (15-43 ) Not Available [facility] (Centralized Electronic Ordering - All Locations) Patient Can Go To The Location Of Their Choice, 11/13/2021 14:47:11/14/1911/13/2021 COMPL ETE CBC WITH DIFF monocyte 9.9 % (4.5-1 0.5) Not Available [facility] (Centralized Electronic Ordering - All Locations) Patient Can Go To The Location Of Their Choice, 11/13/2021 14:47:11/14/19 11/13/2021 COMPL ETE CBC WITH DIFF eo 2.7 % (0-6) Not Available [facility] (Centralized Electronic Ordering - All Locations) Patient Can Go To The Location Of Their Choice, 11/13/2021 14:47:05 11/14/19 22 11/13/2021 COMPL ETE CBC WITH DIFF baso 0.6 % (0-2) Not Available [facility] (Centralized Electronic Ordering - All Locations) Patient Can Go To The Location Of Their Choice, 11/13/2021 14:47:05 11/14/19 22 11/13/2021 COMPL ETE CBC WITH DIFF imm gran 0.5 % Not Available [facility] (Centralized Electronic Ordering - All Locations) Patient Can Go To The Location Of Their Choice, 11/13/2021 14:47:05 11/14/19 22 11/13/2021 COMPR EHENS REY METAB OLIC PANL glucose 99 mg/dL (70-99 ) Not Available [facility] (Centralized Electronic Ordering - All Locations) Patient Can Go To The Location Of Their Choice, 11/13/2021 15:52:45 11/14/19 22 11/13/2021 COMPR EHENS REY METAB OLIC PANL BUN 9 mg/dL (6-20) Not Available [facility] (Centralized Electronic Ordering - All Locations) Patient Can Go To The Location Of Their Choice, 11/13/2021 15:52:45 11/14/1911/13/2021 COMPR EHENS REY METAB OLIC PANL creatinine 0.7 mg/dL (0.5-1 .0) Not Available [facility] (Centralized Electronic Ordering - All Locations) Patient Can Go To The Location Of Their Choice, 11/13/2021 15:52:45 11/14/1911/13/2021 COMPR EHENS REY METAB OLIC PANL sodium 140 mmol/ L (133-1 45) Not Available [facility] (Centralized Electronic Ordering - All Locations) Patient Can Go To The Location Of Their Choice, 11/13/2021 15:52:45 11/14/19 22 11/13/2021 COMPR EHENS REY METAB OLIC PANL potassium 4.1 mmol/ L (3.6-5 .2) Not Available [facility] (Centralized Electronic Ordering - All Locations) Patient Can Go To The Location Of Their Choice, 11/13/2021 15:52:45 11/14/1911/13/2021 COMPR EHENS REY METAB OLIC PANL chloride 104 mmol/ L (98-10 7) Not Available [facility] (Centralized Electronic Ordering - All Locations) Patient Can Go To The Location Of Their Choice, 11/13/2021 15:52:45 11/14/1911/13/2021 COMPR EHENS REY METAB OLIC PANL bicarbonate 27 mmol/ L (22-29 ) Not Available [facility] (Centralized Electronic Ordering - All Locations) Patient Can Go To The Location Of Their Choice, 11/13/2021 15:52:45 11/14/1911/13/2021 COMPR EHENS REY METAB OLIC PANL anion gap 9 (4-17) Not Available [facility] (Centralized Electronic Ordering - All Locations) Patient Can Go To The Location Of Their Choice, 11/13/2021 15:52:45 11/14/1911/13/2021 COMPR EHENS REY METAB OLIC PANL albumin 4.9 gm/dL (3.4-4 .8) high Not Available [facility] (Centralized Electronic Ordering - All Locations) Patient Can Go To The Location Of Their Choice, 11/13/2021 15:52:45 11/14/1911/13/2021 COMPR EHENS REY METAB OLIC PANL calcium 9.6 mg/dL (8.6-1 0.5) Not Available [facility] (Centralized Electronic Ordering - All Locations) Patient Can Go To The Location Of Their Choice, 11/13/2021 15:52:45 11/14/1911/13/2021 COMPR EHENS REY METAB OLIC PANL bilirubin,to norbert 0.4 mg/dL (0-1.2 ) Not Available [facility] (Centralized Electronic Ordering - All Locations) Patient Can Go To The Location Of Their Choice, 11/13/2021 15:52:45 11/14/1911/13/2021 COMPR EHENS REY METAB OLIC PANL total protein 7.1 gm/dL (6.2-8 .2) Not Available [facility] (Centralized Electronic Ordering - All Locations) Patient Can Go To The Location Of Their Choice, 11/13/2021 15:52:45 11/14/1911/13/2021 COMPR EHENS REY METAB OLIC PANL Ag ratio 2.2 Not Available [facility] (Centralized Electronic Ordering - All Locations) Patient Can Go To The Location Of Their Choice, 11/13/2021 15:52:45 11/14/19 22 11/13/2021 COMPR EHENS REY METAB OLIC PANL AST 11 U/L (0-32) Not Available [facility] (Centralized Electronic Ordering - All Locations) Patient Can Go To The Location Of Their Choice, 11/13/2021 15:52:45 11/14/19 22 11/13/2021 COMPR EHENS REY METAB OLIC PANL alk phos 75 U/L (35-10 4) Not Available [facility] (Centralized Electronic Ordering - All Locations) Patient Can Go To The Location Of Their Choice, 11/13/2021 15:52:45 11/14/19 22 11/13/2021 COMPR EHENS REY METAB OLIC PANL ALT 11 U/L (0-33) Not Available [facility] (Centralized Electronic Ordering - All Locations) Patient Can Go To The Location Of Their Choice, 11/13/2021 15:52:45 11/14/1911/13/2021 COMPR EHENS REY METAB OLIC PANL estimated GFR creatinine 113 mL/mi n/1.7 3_M2 Creat inine based estim ated glome rular filtr ation (eGFR ) in adult s is calcu lated using the Natio nal Kidne y Found ation recom balwinder d 2020 CKD-E PI equat ion. Estim ates GFR from serum creat inine , age and sex. Not Available [facility] (Centralized Electronic Ordering - All Locations) Patient Can Go To The Location Of Their Choice, 11/13/2021 15:52:45 11/14/19 22 11/13/2021 IRON & TIBC iron 70 mcg/d L (30-16 0) Not Available [facility] (Centralized Electronic Ordering - All Locations) Patient Can Go To The Location Of Their Choice, 11/13/2021 15:52:47 11/14/1911/13/2021 IRON & TIBC unsaturated iron binding capac 344 mcg/d L (110-3 70) Not Available [facility] (Centralized Electronic Ordering - All Locations) Patient Can Go To The Location Of Their Choice, 11/13/2021 15:52:47 11/14/1911/13/2021 IRON & TIBC est T. iron bind capacity 414 mcg/d L (140-5 30) Not Available [facility] (Centralized Electronic Ordering - All Locations) Patient Can Go To The Location Of Their Choice, 11/13/2021 15:52:47 11/14/1911/13/2021 IRON & TIBC % iron saturation 17 % (20-55 ) low Not Available [facility] (Centralized Electronic Ordering - All Locations) Patient Can Go To The Location Of Their Choice, 11/13/2021 15:52:47 11/14/1911/13/2021 LIPID PANEL cholesterol, total 178 mg/dL (<200) Not Available [facility] ([facility] Order[facility] - All Locations) Patient Can Go To The Location Of Their Choice, 11/13/2021 15:52:48 11/14/1911/13/2021 LIPID PANEL triglyceride 103 mg/dL (<150) Not Available [facility] ([facility] - [facility] Locations) Patient Can Go To The Location Of Their Choice, 11/13/2021 15:52:48 11/14/1911/13/2021 LIPID PANEL HDL chol 58 mg/dL (>39) Not Available [facility] (Centralized Electronic Ordering - All Locations) Patient Can Go To The Location Of Their Choice, 11/13/2021 15:52:48 11/14/1911/13/2021 LIPID PANEL LDL cholesterol, calculated 99 mg/dL (0-130 ) Not Available [facility] (Centralized Electronic Ordering - All Locations) Patient Can Go To The Location Of Their Choice, 11/13/2021 15:52:48 11/14/1911/13/2021 LIPID PANEL non HDL cholesterol (calc) 120 mg/dL (<160) Not Available [facility] ([facility] Order[facility] - All Locations) Patient Can Go To The Location Of Their Choice, 11/13/2021 15:52:48 11/14/1911/13/2021 MAGNE SIUM magnesium 2.2 mg/dL (1.6-2 .3) Not Available [facility] (Centralized Electronic Ordering - All Locations) Patient Can Go To The Location Of Their Choice, 11/13/2021 15:52:49 11/14/1911/13/2021 VITAM IN B12 vitamin B12 310 pg/mL (232-1 245) Not Available [facility] (Centralized Electronic Ordering - All Locations) Patient Can Go To The Location Of Their Choice, 11/13/2021 16:01:44 11/14/1911/13/2021 MORENO TIN ferritin 37 NG/mL (14-28 3) Not Available [facility] (Centralized Electronic Ordering - All Locations) Patient Can Go To The Location Of Their Choice, 11/13/2021 16:01:46 11/14/1911/13/2021 FOLIC ACID folic acid 12.4 NG/mL (4.8-3 7.3) Not Available [facility] (Centralized Electronic Ordering - All Locations) Patient Can Go To The Location Of Their Choice, 11/13/2021 16:01:48 11/14/1911/13/2021 TSH WITH REFLE X TO FT4 TSH 0.80 uIU/m L (0.4-4 .2) Not Available [facility] (Centralized Electronic Ordering - All Locations) Patient Can Go To The Location Of Their Choice, 11/13/2021 16:01:49 11/14/1911/13/2021 HEMOG LOBIN A1C hemoglobin A1C 5.1 % (4.0-5 .6) MONIT ORING : In known diabe tic patie nts, hemog lobin A1c targe ts lee d be discu ssed with healt h care provi marcia. DIAGN OSTIC USE: The Ameri can Diabe rossy Assoc iatio n (ADA) and the World Healt h Organ izati on (WHO) recom mend the use of HbA1c to diagn ose diabe rossy using a thres hold of 6.5%. Patie nts who have an HbA1c betwe en 5.7% and 6.4% are consi dered at incre ased risk for devel oping diabe rossy in the tim NEAL ON: False ly low HbA1c resul ts may be obser vida in patie nts with hemol ytic anemi a, homoz ygous forms of abnor mal hemog lobin (e.g. SS, CC, SC), pregn margot, recen t blood loss or hemog lobin F great er than 7%. Fruct osami ne may be used as an alter regino test in these cases . REFER ENCE: ADA: Stand ards of Medic al Care in Diabe ro[place] 2019, The Journ al of Clini oneil and Appli ed Resea rc and Educa tion Volum e 43, Suppl ement 1 Not Available [facility] (Centralized Electronic Ordering - All Locations) Patient Can Go To The Location Of Their Choice, 11/13/2021 16:54:32 04/01/1904/01/2022 COMPR EHENS REY METAB OLIC PANL glucose 96 mg/dL (70-99 ) Not Available [facility] (Centralized Electronic Ordering - All Locations) Patient Can Go To The Location Of Their Choice, 04/01/2022 15:29:45 04/01/1904/01/2022 COMPR EHENS REY METAB OLIC PANL BUN 12 mg/dL (6-20) Not Available [facility] (Centralized Electronic Ordering - All Locations) Patient Can Go To The Location Of Their Choice, 04/01/2022 15:29:45 04/01/1904/01/2022 COMPR EHENS REY METAB OLIC PANL creatinine 0.7 mg/dL (0.5-1 .0) Not Available [facility] (Centralized Electronic Ordering - All Locations) Patient Can Go To The Location Of Their Choice, 04/01/2022 15:29:45 04/01/1904/01/2022 COMPR EHENS REY METAB OLIC PANL sodium 139 mmol/ L (133-1 45) Not Available [facility] (Centralized Electronic Ordering - All Locations) Patient Can Go To The Location Of Their Choice, 04/01/2022 15:29:45 04/01/19 23 04/01/2022 COMPR EHENS REY METAB OLIC PANL potassium 4.2 mmol/ L (3.6-5 .2) Not Available [facility] (Centralized Electronic Ordering - All Locations) Patient Can Go To The Location Of Their Choice, 04/01/2022 15:29:45 04/01/1904/01/2022 COMPR EHENS REY METAB OLIC PANL chloride 104 mmol/ L (98-10 7) Not Available [facility] (Centralized Electronic Ordering - All Locations) Patient Can Go To The Location Of Their Choice, 04/01/2022 15:29:45 04/01/1904/01/2022 COMPR EHENS REY METAB OLIC PANL bicarbonate 25 mmol/ L (22-29 ) Not Available [facility] (Centralized Electronic Ordering - All Locations) Patient Can Go To The Location Of Their Choice, 04/01/2022 15:29:45 04/01/1904/01/2022 COMPR EHENS REY METAB OLIC PANL anion gap 10 (4-17) Not Available [facility] (Centralized Electronic Ordering - All Locations) Patient Can Go To The Location Of Their Choice, 04/01/2022 15:29:45 04/01/1904/01/2022 COMPR EHENS REY METAB OLIC PANL albumin 4.6 gm/dL (3.4-4 .8) Not Available [facility] (Centralized Electronic Ordering - All Locations) Patient Can Go To The Location Of Their Choice, 04/01/2022 15:29:45 04/01/1904/01/2022 COMPR EHENS REY METAB OLIC PANL calcium 9.6 mg/dL (8.6-1 0.5) Not Available [facility] (Centralized Electronic Ordering - All Locations) Patient Can Go To The Location Of Their Choice, 04/01/2022 15:29:45 04/01/1904/01/2022 COMPR EHENS REY METAB OLIC PANL bilirubin,to norbert 0.5 mg/dL (0-1.2 ) Not Available [facility] (Centralized Electronic Ordering - All Locations) Patient Can Go To The Location Of Their Choice, 04/01/2022 15:29:45 04/01/1904/01/2022 COMPR EHENS REY METAB OLIC PANL total protein 6.9 gm/dL (6.2-8 .2) Not Available [facility] (Centralized Electronic Ordering - All Locations) Patient Can Go To The Location Of Their Choice, 04/01/2022 15:29:45 04/01/19 23 04/01/2022 COMPR EHENS REY METAB OLIC PANL Ag ratio 2.0 Not Available [facility] (Centralized Electronic Ordering - All Locations) Patient Can Go To The Location Of Their Choice, 04/01/2022 15:29:45 04/01/19 23 04/01/2022 COMPR EHENS REY METAB OLIC PANL AST 10 U/L (0-32) Not Available [facility] (Centralized Electronic Ordering - All Locations) Patient Can Go To The Location Of Their Choice, 04/01/2022 15:29:45 04/01/1904/01/2022 COMPR EHENS REY METAB OLIC PANL alk phos 68 U/L (35-10 4) Not Available [facility] (Centralized Electronic Ordering - All Locations) Patient Can Go To The Location Of Their Choice, 04/01/2022 15:29:45 04/01/1904/01/2022 COMPR EHENS REY METAB OLIC PANL ALT 12 U/L (0-33) Not Available [facility] (Centralized Electronic Ordering - All Locations) Patient Can Go To The Location Of Their Choice, 04/01/2022 15:29:45 04/01/1904/01/2022 COMPR EHENS REY METAB OLIC PANL estimated GFR creatinine 110 mL/mi n/1.7 3_M2 Creat inine based estim ated glome rular filtr ation (eGFR ) in adult s is calcu lated using the Natio nal Kidne y Found ation recom balwinder d 2020 CKD-E PI equat ion. Estim ates GFR from serum creat inine , age and sex. Not Available [facility] (Centralized Electronic Ordering - All Locations) Patient Can Go To The Location Of Their Choice, 04/01/2022 15:29:45 04/01/19 23 04/01/2022 IRON & TIBC iron 124 mcg/d L (30-16 0) Not Available [facility] (Centralized Electronic Ordering - All Locations) Patient Can Go To The Location Of Their Choice, 04/01/2022 15:29:47 04/01/1904/01/2022 IRON & TIBC unsaturated iron binding capac 223 mcg/d L (110-3 70) Not Available [facility] (Centralized Electronic Ordering - All Locations) Patient Can Go To The Location Of Their Choice, 04/01/2022 15:29:47 04/01/1904/01/2022 IRON & TIBC est T. iron bind capacity 347 mcg/d L (140-5 30) Not Available [facility] (Centralized Electronic Ordering - All Locations) Patient Can Go To The Location Of Their Choice, 04/01/2022 15:29:47 04/01/1904/01/2022 IRON & TIBC % iron saturation 36 % (20-55 ) Not Available [facility] (Centralized Electronic Ordering - All Locations) Patient Can Go To The Location Of Their Choice, 04/01/2022 15:29:47 04/01/1904/01/2022 LIPID PANEL cholesterol, total 173 mg/dL (<200) Not Available [facility] ([facility] Order[facility] - All Locations) Patient Can Go To The Location Of Their Choice, 04/01/2022 15:29:48 04/01/1904/01/2022 LIPID PANEL triglyceride 114 mg/dL (<150) Not Available [facility] ([facility] - All Locations) Patient Can Go To The Location Of Their Choice, 04/01/2022 15:29:48 04/01/1904/01/2022 LIPID PANEL HDL chol 59 mg/dL (>39) Not Available [facility] (Centralized Electronic Ordering - All Locations) Patient Can Go To The Location Of Their Choice, 04/01/2022 15:29:48 04/01/1904/01/2022 LIPID PANEL LDL cholesterol, calculated 91 mg/dL (0-130 ) Not Available [facility] (Centralized Electronic Ordering - All Locations) Patient Can Go To The Location Of Their Choice, 04/01/2022 15:29:48 04/01/1904/01/2022 LIPID PANEL non HDL cholesterol (calc) 114 mg/dL (<160) Not Available [facility] (Centralized Electronic Ordering - All Locations) Patient Can Go To The Location Of Their Choice, 04/01/2022 15:29:48 04/01/1904/01/2022 VITAM IN B12 vitamin B12 693 pg/mL (232-1 245) Not Available [facility] (Centralized Electronic Ordering - All Locations) Patient Can Go To The Location Of Their Choice, 04/01/2022 15:38:25 04/01/1904/01/2022 MORENO TIN ferritin 74 NG/mL (14-28 3) Not Available [facility] (Centralized Electronic Ordering - All Locations) Patient Can Go To The Location Of Their Choice, 04/01/2022 15:38:26 04/01/1904/01/2022 FOLIC ACID folic acid 7.9 NG/mL (4.8-3 7.3) Not Available [facility] (Centralized Electronic Ordering - All Locations) Patient Can Go To The Location Of Their Choice, 04/01/2022 15:38:28 04/01/1904/01/2022 TSH WITH REFLE X TO FT4 TSH 1.03 uIU/m L (0.4-4 .2) Not Available [facility] (Centralized Electronic Ordering - All Locations) Patient Can Go To The Location Of Their Choice, 04/01/2022 15:38:29 04/01/1904/01/2022 COMPL ETE CBC WITH DIFF WBC 6.8 K/mm3 (4.0-1 1.0) Not Available [facility] (Centralized Electronic Ordering - All Locations) Patient Can Go To The Location Of Their Choice, 04/01/2022 16:53:36 04/01/1904/01/2022 COMPL ETE CBC WITH DIFF RBC 4.87 M/mm3 (4.20- 5.40) Not Available [facility] (Centralized Electronic Ordering - All Locations) Patient Can Go To The Location Of Their Choice, 04/01/2022 16:53:36 04/01/1904/01/2022 COMPL ETE CBC WITH DIFF HGB 14.6 gm/dL (11.7- 15.5) Not Available [facility] (Centralized Electronic Ordering - All Locations) Patient Can Go To The Location Of Their Choice, 04/01/2022 16:53:36 04/01/1904/01/2022 COMPL ETE CBC WITH DIFF HCT 46.0 % (35.7- 45.8) high Not Available [facility] (Centralized Electronic Ordering - All Locations) Patient Can Go To The Location Of Their Choice, 04/01/2022 16:53:36 04/01/1904/01/2022 COMPL ETE CBC WITH DIFF MCV 94.5 fL (80.0- 100.0) Not Available [facility] (Centralized Electronic Ordering - All Locations) Patient Can Go To The Location Of Their Choice, 04/01/2022 16:53:36 04/01/1904/01/2022 COMPL ETE CBC WITH DIFF MCH 30.0 pg (27.0- 34.0) Not Available [facility] (Centralized Electronic Ordering - All Locations) Patient Can Go To The Location Of Their Choice, 04/01/2022 16:53:36 04/01/1904/01/2022 COMPL ETE CBC WITH DIFF MCHC 31.7 g/dL (33.0- 37.0) low Not Available [facility] (Centralized Electronic Ordering - All Locations) Patient Can Go To The Location Of Their Choice, 04/01/2022 16:53:36 04/01/1904/01/2022 COMPL ETE CBC WITH DIFF plt 367 K/mm3 (150-4 60) Not Available [facility] (Centralized Electronic Ordering - All Locations) Patient Can Go To The Location Of Their Choice, 04/01/2022 16:53:36 04/01/1904/01/2022 COMPL ETE CBC WITH DIFF RDW-SD 44.5 fL (<47.0 ) Not Available [facility] (Centralized Electronic Ordering - All Locations) Patient Can Go To The Location Of Their Choice, 04/01/2022 16:53:36 04/01/1904/01/2022 COMPL ETE CBC WITH DIFF MPV 9.5 fL (9.4-1 2.4) Not Available [facility] (Centralized Electronic Ordering - All Locations) Patient Can Go To The Location Of Their Choice, 04/01/2022 16:53:36 04/01/19 23 04/01/2022 COMPL ETE CBC WITH DIFF automated NRBC 0.0 #/100 _WBC' s Not Available [facility] (Centralized Electronic Ordering - All Locations) Patient Can Go To The Location Of Their Choice, 04/01/2022 16:53:36 04/01/19 23 04/01/2022 COMPL ETE CBC WITH DIFF abs. NRBC 0.0 K/mm3 Not Available [facility] (Centralized Electronic Ordering - All Locations) Patient Can Go To The Location Of Their Choice, 04/01/2022 16:53:36 04/01/19 23 04/01/2022 COMPL ETE CBC WITH DIFF neut # 3.7 K/mm3 (1.3-7 .0) Not Available [facility] (Centralized Electronic Ordering - All Locations) Patient Can Go To The Location Of Their Choice, 04/01/2022 16:53:36 04/01/1904/01/2022 COMPL ETE CBC WITH DIFF lymph # 2.1 K/mm3 (0.8-3 .1) Not Available [facility] (Centralized Electronic Ordering - All Locations) Patient Can Go To The Location Of Their Choice, 04/01/2022 16:53:36 04/01/1904/01/2022 COMPL ETE CBC WITH DIFF mono# 0.8 K/mm3 (0.4-0 .9) Not Available [facility] (Centralized Electronic Ordering - All Locations) Patient Can Go To The Location Of Their Choice, 04/01/2022 16:53:36 04/01/19 23 04/01/2022 COMPL ETE CBC WITH DIFF eo # 0.2 K/mm3 (0.0-0 .4) Not Available [facility] (Centralized Electronic Ordering - All Locations) Patient Can Go To The Location Of Their Choice, 04/01/2022 16:53:36 04/01/1904/01/2022 COMPL ETE CBC WITH DIFF baso # 0.1 K/mm3 (0.0-0 .1) Not Available [facility] (Centralized Electronic Ordering - All Locations) Patient Can Go To The Location Of Their Choice, 04/01/2022 16:53:36 04/01/19 23 04/01/2022 COMPL ETE CBC WITH DIFF abs. imm gran 0.0 K/mm3 Not Available [facility] (Centralized [facility] Ordering - All Locations) Patient Can Go To The Location Of Their Choice, 04/01/2022 16:53:36 04/01/19 23 04/01/2022 COMPL ETE CBC WITH DIFF neut 54.2 % (44-76 ) Not Available [facility] (Centralized Electronic Ordering - All Locations) Patient Can Go To The Location Of Their Choice, 04/01/2022 16:53:36 04/01/19 23 04/01/2022 COMPL ETE CBC WITH DIFF lymph 30.4 % (15-43 ) Not Available [facility] (Centralized Electronic Ordering - All Locations) Patient Can Go To The Location Of Their Choice, 04/01/2022 16:53:36 04/01/1904/01/2022 COMPL ETE CBC WITH DIFF monocyte 11.6 % (4.5-1 0.5) high Not Available [facility] (Centralized Electronic Ordering - All Locations) Patient Can Go To The Location Of Their Choice, 04/01/2022 16:53:36 04/01/19 23 04/01/2022 COMPL ETE CBC WITH DIFF eo 2.8 % (0-6) Not Available [facility] (Centralized Electronic Ordering - All Locations) Patient Can Go To The Location Of Their Choice, 04/01/2022 16:53:36 04/01/19 23 04/01/2022 COMPL ETE CBC WITH DIFF baso 0.7 % (0-2) Not Available [facility] (Centralized Electronic Ordering - All Locations) Patient Can Go To The Location Of Their Choice, 04/01/2022 16:53:36 04/01/1904/01/2022 COMPL ETE CBC WITH DIFF imm gran 0.3 % Not Available [facility] (Centralized Electronic Ordering - All Locations) Patient Can Go To The Location Of Their Choice, 04/01/2022 16:53:36 08/14/1908/13/2022 CALPR OTECT IN,FE ONEIL results Patie nt refus ed, reord er test if neede d Not Available [facility] (Centralized Electronic Ordering - All Locations) Patient Can Go To The Location Of Their Choice, [id number] 08/13/2022 09:54:50 08/14/19 23 08/13/2022 H. PYLOR I STOOL ANTIG EN results Patie nt refus ed, reord er test if neede d Not Available [facility] (Centralized Electronic Ordering - All Locations) Patient Can Go To The Location Of Their Choice, [id number] 08/13/2022 09:54:56 04/03/19 23 04/03/2022 imagi ng/di agnos tic resul t No observ ation record ed. [facility] (Pathology) [address] [place] [address], [id number], 04/04/2022 12:14:25 05/01/19 23 04/29/2022 tread mill nucle ar stres s test (PROC ) No observ ation record ed. [email or web address] Not Available 05/01 09:18:29 05/01/19 23 04/29/2022 imagi ng/di agnos tic resul t No observ ation record ed. [email or web address] Nuclear Medicine Department [address] [place] [address], [id number], 05/01/2022 09:17:57 Result Notes None recorded. Medical Equipment None Reported. Allergies No known drug allergies Medications Name Sig Start Date Stop Date Status Note LastModified by Organization Details LastModified Time Prescriptio n - Renewal active Not Available Not Available Not Available Prescriptio n - Change active Not Available Not Available N ot Available cyclobenzap rine 10 mg tablet TAKE 1 TABLET BY MOUTH AT BEDTIME NEEDED FOR 10 DAYS active Not Available Not Available No t Available diclofenac 3 % topical gel active Not Available Not Available Not Available atorvastati n 10 mg tablet Take 1 tablet every day by oral route. 2022 active Not Available Not Available Not Avai lable nystatin 100,000 unit/gram topical ointment APPLY TO AFFECTED AREA TWICE A DAY active Not Available Not Available No t Available citalopram 10 mg tablet TAKE 1 TABLET BY MOUTH EVERY DAY 05/29 completed Not Available Not Available Not Available Paxil 20 mg tablet Take 1 tablet every day by oral route. 05/29 completed Not Available Not Available Not Available famotidine 40 mg tablet TAKE 1 TABLET BY MOUTH EVERY DAY active Not Available Not Available No t Available sulfamethox azole 800 mg-trimetho prim 160 mg tablet TAKE 1 TABLET BY MOUTH EVERY 12 HOURS FOR 5 DAYS active Not Available Not Available No t Available triamcinolo ne acetonide 0.1 % topical cream APPLY TOPICALLY TWICE A WEEK FOR 10 DAYS active Not Available Not Available No t Available ondansetron 8 mg disintegrat ing tablet TAKE 1 TABLET BY MOUTH EVERY 6 HOURS NEEDED FOR NAUSEA & VOMITING active Not Available Not Available No t Available meloxicam 7.5 mg tablet TAKE 1 TABLET BY MOUTH EVERY DAY active Not Available Not Available No t Available alprazolam 0.5 mg tablet TAKE 1 TABLET BY MOUTH TWICE A DAY active Not Available Not Available No t Available magnesium oxide 400 mg (241.3 mg magnesium) tablet Take 1 tablet every day by oral route. active Not Available Not Available No t Available Celexa 20 mg tablet Take 1 tablet(s) every day by oral route. active Not Available Not Available No t Available pantoprazol e 40 mg tablet,lane yed release TAKE 1 TABLET BY MOUTH EVERY DAY active Not Available Not Available No t Available triamcinolo ne acetonide 0.1 % topical ointment APPLY TOPICALLY A THIN FILM TWICE A DAY NEEDED FOR UP TO 30 DAYS active Not Available Not Available No t Available omeprazole 20 mg capsule,del ayed release TAKE 1 CAPSULE BY MOUTH EVERY DAY active Not Available Not Available No t Available mecobalamin (vitamin B12) 5,000 mcg disintegrat ing tablet Take 1 tablet every day by oral route. 2021 active Not Available Not Available Not Avai lable magnesium 400 mg (as magnesium oxide) tablet Take 1 tablet by oral route. 2022 active Not Available Not Available Not Avai lable BinaxNOW COVID-19 Ag Self Test kit TEST DIRECTED TODAY active Not Available Not Available No t Available Vitals Date Recorded Body height Body mass index (BMI) Body weight Oxygen saturation Oxygen saturation in Arterial blood by Pulse oximetry Provider Name and Address Organization Details Last Updated DateTime 03/31/2022 167.64 cm 38.7 kg/m2 334283. 17 g 98 % 98 % Joe Reinoso, [address] [address], [place], [place], [address], [place] - [facility] 12:04:54 Date Recorded Body height Body mass index (BMI) Body weight Respiratory rate Heart rate Oxygen saturation Oxygen saturation in Arterial blood by Pulse oximetry Systolic And Diastolic Provider Name and Address Organization Details Last Updated DateTime 2 167.64 cm 38.7 kg/m2 732861. 17 g 12 /min 93 /min 96 % 96 % 115/65 mm[Hg] Joe Reinoso, [address], [place], [address], [place] - [facility] 10:55:17 Social History Question Answer Notes LastModified by [employer] Details LastModified Time Tobacco Smoking Status Former Smoker stopped 18 years ago with first Joe Reinoso DO [address], [place], [address], [place] - [facility] 06/25/2021 13:41:08 What Type Of Diet Are You Following? REGULAR GERD Diet Information not available 06/25/2021 What Is The Highest Grade Or Level Of School You Have Completed Or The Highest Degree You Have Received? [id number] Information not available 06/25/2021 Do You Have A Humidifier? Yes Information not available 06/25/2021 How Many Children Do You Have? 3 Youngest Is 13 And Oldest Is 18. Information not available 06/25/2021 Do You Have Any Pets? No Information not available 06/25/2021 What Is Your Relationship Status? Information not available 06/25/2021 Do You Use Your Seat Belt Or Car Seat Routinely? Yes Information not available 06/25/2021 Are You Sexually Active? Yes Information not available 06/25/2021 Are You Currently In School? No Information not available 06/25/2021 Do You Have Any Dietary Restrictions? No Information not available 06/25/2021 Sex: Unknown Functional Status Question Answer Note LastModified by Organizat ion Details LastModified Time Do you use any illicit or recreational drugs? was a heavy pot smoker but stopped 10 days ago. Was mostly social Information not available 06/25/2021 What is your level of alcohol consumption? only 2-3 per weekend but considering to completely stop. Information not available 06/25/2021 Are you currently employed? for [email or web address]. Information not available 06/25/2021 Have you been exposed to chemicals or toxins? drinks filtered water Information not available 06/25/2021 What is your exercise level? some Information not available 06/25/2021 Mental Status Question Answer Note LastModified by Organizat ion Details LastModified Time Do you feel stressed (tense, restless, nervous, or anxious, or unable to sleep at night)? [id number] In cycles. ok now. No change since she stopped POt Information not available 06/25/2021 Family History Relationship Description Onset Age of this Age Resolved Age Notes LastModified by Organization Details LastModified Time Maternal Grandfather Coronary arterioscler osis 76 had lung cancer Not available 06/25/2021 13:32:44 Notes:Her father side of [employer] sarah is unknown. Medical History Condition Response Acid Reflux (GERD) Y High Cholesterol Y Gynecological History Statement/Question Response STIs/STDs Abnormal Pap Sexually Active? Y Obstetrics History GPAL:G 0 P 0 0 0 0 Past Encounters Encounter ID Performer Location Encounter Start Date Encounter Closed Date Diagnosis/Indication Diagnosis SNOMED-CT Code Diagnosis ICD10 Code Diagnosis IMO Codes Diagnosis Note [id number] Joe Reinoso DO MAIN OFFICE [address] [place] [id number] 06/25/2021 13:16:47 06/25/2021 15:06:16 Tight chest 34237134 R07.89 occurs at night when lying down or when she goes for walk. Resolves with albuteral and elevation of head of the bed at night. She recently stopped smoking weed which she has been doing since teenage years.She has had hiatal hernia. BMI is 40.Since she has had recent w/u including endoscopy, EKG , CXR which point to tightness due to hiatal Hernia and GERD due to obesity. She might also have Asthma due to years of smoking pot for years but if she discontinu es use the damage might improve. She was seen by pulm and Asthma was ruled out when she was younger. Obesity 243590595 E66.9 Explained that underlying cause if her other issues such tightness in the chest, hiatal hernia and sciatica is obesity (BMI 40).Advise d pt to take small steps such as decreasing sugar to less than 75 mg per day at first.inte rmittent fasting.sa lad before each mealIf her GERD allows, warm water and fresh lemon juice in am.10 min walk per day, 15 min of weight lifting daily.Pt to consider a short course(one month) of modified Keto diet with high protein, and low carb veggies such celery, green morse, cucumbers, mushroom, cabbage, broccoli. 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 TSH, Vit D, B12.Pt has stopped pot which should help regulate her appetite. Mild inter mittent asthma 330081066 J45.20 uses Inhaler as need mostly after walk.This issue should improve since she has stopped smoking pot and planning to lose weight. Sciatica 94148555 M54.31 Showed pt certain exercises to do.pt to use standing desk.p is working on wt loss. [id number] Joe Reinoso DO MAIN OFFICE [address] [place] [address] [address] [place] [address] 11/14/2021 10:50:03 11/15/2021 15:31:46 Inflammatory bowel disease 51198421 K52.9 GERDSigns of IBD including loose stool and bloating with certain foodsAdvis ed probiotics (ancient Gut restore) and collagen dailyAvoid ing sugar, alcohol, processed foods.Tria l of gluten free diet.Wt loss regiment including intermitte nt fasting, joining over-eater anonymous and journal/ meditation and therapy were discussed. Pt to take 2 weeks of PPI for now and will re-evaluat e.If no improvemen t in 3-4 weeks, will need GI eval. Vitamin B1 2 deficiency (non anemic) 48219654 E53.8 less than 300start daily SL x 1 month decrease to EOD after that. Tinnitus 90357914 H93.11 pounding sound in R ear x 3 weeks, specially at night.No loss of hearing. No dizziness or neuro deficit.No recent viral illnessMos t likely due to anxiety and B12 deficiency .No abnormalit y noted on PEBP is normalExte rnal ear is normal. Generalize d anxiety disorder 39895733 F41.1 Pt is very anxiousHas stopped smoking pot.TSH and vit D was [id number] was low.She has signs of IBD.Recomm ended therapy and meditation B12 supplement would helpDaily exercise and meditation .Since she is very stressed will give 6 tabs of xanax. 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 If she does not improve with above interventi ons then she might need SSRIs. Chest pain 43501011 R07. 9 ED w/u negative including lab work, EKG and CXREpigast juan tenderness persists which is GERD and hiatal hernia.Tri ed to reassure the pt.lipid panel was normalNo sign of cardiac disease since no issues with activity.p t did not want a stress test at this time.She should take protonix for the next 2 weeks and then will reassess. Pain of right calf [id number] 680510 M79.661 Noted to have varicosed vein.Negat rey for Homans sign, less likely to be DVT.Advise d pt to stand every hour and walk. Avoid prolonged sitting or standing.U se of compressio n stockings and walking and upward massage can help with varicose veins.B12 under the tongue and hydration with Home made gatorade ( 8 oz water + tip of teaspoon salt + 1/2 teaspoon sugar) should help.Pleas e take Magnesium even though the level was normal.Inc rease activity and walking to help move circulatio n.If no improvemen t in 1-2 weeks will perform further w/u. [id number] Joe Reinoso DO MAIN OFFICE [address] [facility] [address] [place] [address] 12/12/2021 10:49:34 12/12/2021 12:18:14 COVID-19 [id number] U07.1 Symptomati c x2 daysup to 1 Airborne per day for 5 days.Vit D, vit C, Mag, and zinc, cont probiotic. HydrationE nteric Coated Aspirin 325mg per day with food for 5 days and then stop.Tylen ol as needed for pain and free.Discu ssed paxlovid.A void NSAIDs such as motrin.Adv ised anti-infla mmatory diet (no gluten or alcohol, decrease sugar intake, take probiotic, collagen, and turmeric)I f chest pain or Shortness of breath go to ER.If severe cough call office to get prednisone taper.If persistent fatigue of other issues after 2 weeks, call the office to treat and prevent long COVID. [id number] Joe Reinoso DO MAIN OFFICE [address] [place] [id number] 03/15/2022 09:59:40 04/02/2022 13:57:17 Pain of right shoulder joint [id number] 4583710 M25.511 Trauma/fal l 5 days ago.She landed on her buttocks and slid down the stairs. She thinks she used her arm to prevent sliding further.A hard 3cm x 3cm lump under bicep muscle notes. Most likely small hematoma.S he is having pain when lifting shoulder from side and trying to scratch her back.Some tenderness to touch on the bicep.Pass rey ROM also decreased when tried to bring arm back. 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 [id number] Joe Reinoso DO MAIN OFFICE [address] [place] [id number] 03/31/2022 11:56:28 04/28/2022 09:57:39 Gastroesophageal reflux disease [id number] K21.9 Epigastric pain improves with food and then comes back.Has been constipate d since satPain started on thu and she was seen at and EKG was normalh/o hiatal hernia2 years ago had EGD which showed hiatal herniaCan' t remember what brought on the current pain.+ GERD, no N/V/D, no blood or mucus in stool, no wt loss. no melena, +abdominal pain (epigastri c) and constipati on.Has Appt with GI May check CBC and CMP.Has had low iron and B12 in the past and takes SL B12 at this time.Was not able to try Gluten free dietNo ETOH or PotHas sugar cravings at nightHer BMI is still 38She is planning on joining a wt loss program.Ad vised her to look into [facility]. Avoid sugar during the day and reward herself with roasted nuts or whip cream at night (instead of ice cream)Any type of exercise would be helpful. Generalize d anxiety disorder 40099876 F41.1 Pt is very anxiousHas stopped smoking pot.TSH and vit D was [id number] was low.She has signs of IBD.Recomm ended therapy and meditation B12 supplement would helpDaily exercise and meditation .Since she is very stressed will give 6 tabs of xanax. This is not half-way treatment for anxiety and is given since she has acute anxiety. If she does not improve with above interventi ons then she might need SSRIs. Hyperlipidemia 17030850 E78.5 on statinDisc ussed dietsugar is the biggest culprit [id number] Joe Reinoso DO MAIN OFFICE [address] [facility] [address] [place] [address] 04/10/2022 12:35:37 04/28/2022 10:18:53 Generalized anxiety disorder 01606163 F41.1 04/10/22On celexa for 1 week. still has some anxietyHad a relapse and was smoking pot again but now is off of it.Was on paxil 10, will increase to 20 NOW.pt will let us know in 4 weeks if it works and more will be ordered.RT O if no response to paxil.Dry mouth but otherwise they are ok.Mom and grandmothe r have anxietyThe rapy, exercise, meditation , 15 min sun exposure per day, in sugar intake and simple carbs can be helpful.St opped CoffeeReco mmended Valerian root and Mag at nightLabs were reviewed Pt is very anxiousHas stopped smoking pot.TSH and vit D was yoipgyR50 was low.She has signs of IBD.Recomm ended therapy and meditation B12 supplement would helpDaily exercise and meditation .Since she is very stressed will give 6 tabs of xanax. This is not half-way treatment for anxiety and is given since she has acute anxiety. If she does not improve with above interventi ons then she might need SSRIs. Palpitations 48332010 R0 0.2 Can hear her heart beat at night.Xavier es CP or CASTRO or fatigue when she walks on treadmill. But if she runs she feels SOB when runs.she is obese and has not exercise in a while.Had another ED visit due to nausea and chest pain.Respo nded to lidocaine and maloxx and had US and CT which weres normal.was thought to have gastritis. Since She has had multiple ED Visit might benefit from an exercise stress test.She is started on PaxilAdvis ed to not smoke potNo Fhx of early CADIf similar symptoms advised pt to take malox and pepto and if no improvemen t then go to ED. Gastroesop hageal reflux disease [id number] K21.9 04/10/22Has hietal herniaTake s pepcid at night and no PPI at this time. Some improvemen t with pepcid.Vadim n and hunger before food and improves with eatigHas cut back on coffee and fired food.They did CT in ED that was normal and did not show gallbladde r issues.Magen l be seen by GI in check for H pylori (pt to be off PPI for the test) Epigastric pain improves with food and then comes back.Has been constipate d since satPain started on thu and she was seen at and EKG was normalh/o hiatal hernia2 years ago had EGD which showed hiatal herniaCan' t remember what brought on the current pain.+ GERD, no N/V/D, no blood or mucus in stool, no wt loss. no melena, +abdominal pain (epigastri c) and constipati on.Has Appt with GI May check CBC and CMP.Has had low iron and B12 in the past and takes SL B12 at this time.Was not able to try Gluten free dietNo ETOH or PotHas sugar cravings at nightHer BMI is still 38She is planning on joining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
--- OUTSIDE RECORDS SUMMARY | 2024-12-23 07:35 | XMS_ITS | Encounter Summary ---
Author Organization [facility] Address [address] [place] [phone] Phone Care Team Providers Care Cold Header Operator Name Role Phone Tanika Dobbins CNP Primary Care Provider + Fior Carney MD Primary Care Provider Michi Soria NP Primary Care Provider [phone] Joe Reinoso DO Primary Care Provider [phone] Sejal Ngo MD Primary Care Provider + Encounter Details Date Type Department Care Team (Latest Contact Info) Description 08/16/2019 Transcribe Orders Virtual Department [address] [place] [phone] Fior Carney MD [address] [place] [id number] [email or web address] Wheezing (Primary Dx) Social History Tobacco Use Types [...] Description 04/28/2025 10:15 AM EST Office Visit [facility] Pulmonary, Allergy and Critical Care Medicine [address] [place] [address] Bradley Philip MD, MS 10 [facility] 2nd [place] [address] [email or web address] documented as of this encounter Results * Pulmonary Function Test Reason for Exam: Wheezing; Type of PFT Test: Lung Volumes, DLCO, Spirometrywith bronchodilator; Performing Location: [facility] (11/01/2019 6:43 AM EDT) FEV1 2.96 liters FVC 3.98 liters FEV1/FVC 74 % TLC 5.52 liters DLCO 28.9 ml/mmHg sec Anatomical Region Laterality Modality Other Impressions 11/01/2019 6:43 AM EDT PULMONARY FUNCTION STUDIES Full pulmonary function studies were performed on this 38 y.o. year-old female for evaluation of wheezing. Review of the medical record reveals that the patient is a past smoker. Prior pulmonary function studies are not available for comparison. SPIROMETRY: The FEV1 is normal at 2.96 L or 98% predicted. The FVC is normal at 3.98 L or 104% predicted. The FEV1/FVC ratio is normal at 74%. After the administration of a bronchodilator agent, there is no significant change. FLOW-VOLUME LOOPS: Evaluation of the flow-volume loops reveals normal morphology of both the inspiratory and expiratory limbs with no significant difference when comparing the tracings performed pre- and post-bronchodilator. LUNG VOLUME MEASUREMENTS BY PLETHYSMOGRAPHY: The total lung capacity is normal at 5.52 L or 101% predicted. The functional residual capacity is normal at 2.16 L or 92% predicted. Of note, the ERV is markedly impaired at 27% predicted, likely representing the imprint of body habitus. DIFFUSION CAPACITY: The diffusion capacity is normal at 28.9 mL/mmHg sec or 98% predicted. Resting oxygen saturation is 97% on room air. IMPRESSION: This represents normal pulmonary function studies. If a diagnosis of asthma is in question, a methacholine challenge study could be obtained to further evaluate this. Fior Carney MD PFT ORDERABLES Final R esult documented in this encounter Visit Diagnoses Diagnosis Wheezing- Primary Wheezing documented in this encounter Additional Health Concerns Infection Onset Date Last Indicated Resolved Time CoV-Risk 03/16/2024 03/16/2024 03/27/2024 2:34 AM EST documented as of this encounter Care Teams Cold Header Operator Relationship Specialty Start Date End Date Tanika Dobbins CNP [address] [place] [phone] [email or web address] PCP - General Family Medicine 01/12/19 10/12/19 Fior Carney MD [address] [place] [phone] [email or web address] PCP - General Family Medicine 10/13/19 12/16/19 Michi Soria NP [address] [place] [address] [email or web address] PCP - General Family Medicine 12/17/19 04/01/22 Joe Reinoso DO [address] [facility] [address] [place] [phone] [email or web address] PCP - General Internal Medicine 04/02/22 02/05/23 Sejal Ngo MD [address] [place] [address] [email or web address] PCP - General Family Medicine 02/06/23 documented as of this encounter Additional Source Comments The information contained in this document represents components of the legal health record. It is not the complete legal health record.[facility]
--- OUTSIDE RECORDS SUMMARY | 2024-12-23 07:35 | XMS_ITS | Encounter Summary ---
Author Organization [facility] Address [address] [place] [address] Phone Care Team Providers Care Salesperson Sheet Music Name Role Phone Fior Carney MD Primary Care Provider Michi Soria NP Primary Care Provider [phone] Joe Reinoso DO Primary Care Provider [phone] Sejal Ngo MD Primary Care Provider + Encounter Details Date Type Department Care Team (Late st Contact Info) Description 10/27/2019 Transcribe Orders [facility] P[facility] [address] [place] [address] Fior Carney MD [address] [place] [phone] [email or web address] Social History Tobacco Use Types Packs/Day Years [...] Care Medicine [address] [place] [address] [place] [address] Bradley Philip MD, MS 10 [facility] 2nd [place] [address] [email or web address] documented as of this encounter Visit Diagnoses Not on filedocumented in this encounter Additional Health Concerns Infection Onset Date Last Indicated Resolved Time CoV-Risk 03/16/2024 03/16/2024 03/27/2024 2:34 AM EST documented as of this encounter Care Teams Salesperson Sheet Music Relationship Specialty Start Date End Date Fior Carney MD [email or web address] PCP - General Family Medicine 10/13/19 12/16/19 Michi Soria NP [address] [place] [phone] [email or web address] PCP - General Family Medicine 12/17/19 04/01/22 Joe Reinoso DO [address] [place] [phone] [email or web address] PCP - General Internal Medicine 04/02/22 02/05/23 Sejal Ngo MD [address] [place] [phone] [email or web address] PCP - General Family Medicine 02/06/23 documented as of this encounter Additional Source Comments The information contained in this document represents components of the legal health record. It is not the complete legal health record.[facility]
[2025-01-24 12:39] VITALS: BMI 42.2
--- NOTE | 2025-01-25 09:41 | HO.ANESPROP2 ---
Documented by User: Darya Somers NP 01/25/25 09:41 HPI - Anesthesia Eval Consult details Narrative: 44 yr old female for upper endoscopy, colonoscopy Asthma GERD PMFSH Active Problems Active Problems: All Active Problems (Updated 01/24/25 @ 12:46 by Teena Guevara RN) Iron deficiency anemia (Acute) GERD (gastroesophageal reflux disease) (Acute) Past Medical History Medical History Asthma Hiatal hernia Diarrhea Constipation Iron deficiency anemia GERD (gastroesophageal reflux disease) Anxiety HLD (hyperlipidemia) Surgical History Surgical History History of esophagogastroduodenoscopy (EGD) Social History Social History Patient Tobacco Use Status: Never used Tobacco Use of substances other than those prescribed or required for medical reasons: Yes Are you DNR?: No Advance Directives: No Advance Directives Information Provided: Yes : No Meds Allergies Allergy/AdvReac Type Severity Reaction Status Date / Time No Known Allergies Allergy Verified 07/20/24 12:56 Home Medications ?Medication ?Instructions ?Recorded ?Confirmed ?Last Taken ?Type atorvastatin 10 mg tablet 10 mg PO DAILY 07/20/24 01/24/25 Unknown History citalopram 20 mg tablet 20 mg PO DAILY 07/20/24 01/24/25 Unknown History levonorgestrel 14 mcg/24 hr (up to intrauterine 07/20/24 Unknown History 3 yrs) 13.5 mg intrauterine device albuterol sulfate 90 mcg/actuation 1 puff inhalation Q4H PRN 01/24/25 01/24/25 Unknown History aerosol inhaler Shortness Of Breath Or Wheezing budesonide-formoterol HFA 80 2 puff inhalation BID 01/24/25 01/24/25 Unknown History mcg-4.5 mcg/actuation aerosol inhaler (Symbicort) Exam Height,Weight and Vital Signs: Height 5 ft 5 in Weight 115 kg Documented by User: Pankaj Conde MD 01/26/25 11:31 [facility] Past Medical History Medical History Asthma Hiatal hernia Diarrhea Constipation Iron deficiency anemia GERD (gastroesophageal reflux disease) Anxiety HLD (hyperlipidemia) Family History Family history of problems with anesthesia: No Surgical History Surgical History History of esophagogastroduodenoscopy (EGD) History of Problems with Anesthesia: No Social History Social History Patient Tobacco Use Status: Never used Tobacco Use of substances other than those prescribed or required for medical reasons: Yes Are you DNR?: No Advance Directives: No Advance Directives Information Provided: Yes : No Meds Allergies Allergy/AdvReac Type Severity Reaction Status Date / Time No Known Allergies Allergy Verified 07/20/24 12:56 Home Medications ?Medication ?Instructions ?Recorded ?Confirmed ?Last Taken ?Type atorvastatin 10 mg tablet 10 mg PO DAILY 07/20/24 01/24/25 Unknown History citalopram 20 mg tablet 20 mg PO DAILY 07/20/24 01/24/25 Unknown History levonorgestrel 14 mcg/24 hr (up to intrauterine 07/20/24 Unknown History 3 yrs) 13.5 mg intrauterine device albuterol sulfate 90 mcg/actuation 1 puff inhalation Q4H PRN 01/24/25 01/24/25 Unknown History aerosol inhaler Shortness Of Breath Or Wheezing budesonide-formoterol HFA 80 2 puff inhalation BID 01/24/25 01/24/25 Unknown History mcg-4.5 mcg/actuation aerosol inhaler (Symbicort) Exam Exam Date and Time: 01/26/25 Airway TM Dist: >3cm Neck ROM: Full Loose/Missing/Broken Teeth: No Heart: rrr Lungs: cta Other: knormal Assessment and Plan Assessment Anesthesia Assessment: Anesthesia Plan Discussed and Chart Reviewed Final Anesthetic Review Family History of Problems with Anesthesia: No History of Problems with Anesthesia: No NPO: Yes ASA Class: III Final Preanesthetic Review: No Changes in Pt Med Stat, Meds/Allgs Chart Reviewed, Consent Obtained/Reviewed and Anes Risks/Benef Reviewed Patient Risk: Low Procedure Risk: Low Anesthetic Plan Anesthetic Plan: MAC: Disposition: Standard PACU
[2025-01-26 09:10] VITALS: BMI 40.3
[2025-01-26 09:16] VITALS: BP 124/77; PULSE 87; RESP 16; TEMP 36.6; O2SAT 95
[2025-01-26] MEDS: Lactated Ringers 1,000 ML 100 ML IVCONT (09:28)
--- NOTE | 2025-01-26 09:30 | MHC.SHP ---
Pre-Procedural Eval Section A - 24 Hr Update-Section A only Date of Service: 01/26/25 Section B - Complete if H&P > 30 days Chief Complaint: Anemia, unspecified Details of Present Illness: Obesity Gallstones Hyperlipidemia Present Medications: see Short Stay Collaborative assessment History of Previous Operations: No relevant previous surgery Allergies: Allergies Allergy/AdvReac Type Severity Reaction Status Date / Time No Known Allergies Allergy Verified 07/20/24 12:56 Review of Systems Review of Systems Comment: Ten point ROS negative Exam Exam Comment: Gen appear: No acute distress HEENT: no icterus Chest: No overt resp distress Abd: soft, nontender, nondistended Psych: Stable affect, answering questions appropriately Neuro: A/Ox3 noted to move all extremities spontaneously Ext: no peripheral edema Plan Diagnosis/Plan: Unchanged I have reviewed the history and physical and performed a pertinent physical examination on my patient. No changes have occurred unless specified. Time Spent With Patient Time: Total time managing care of this patient today ____ minutes.
[2025-01-26 09:38] LABS: UPreg QC Valid YES
--- NOTE | 2025-01-26 10:42 | PC.NURSE ---
MEDICATED FOR NAUSEA. NO VOMITING. C/O HEADACHE. DENIES BLURRY EYE VISION.
--- NOTE | 2025-01-26 11:19 | P.OPN-COLO_ITS ---
Colonoscopy Operative Note Operative Note Date of Service: 01/26/25 Narrative: Procedure: Upper endoscopy and colonoscopy Indication: GERD, iron deficiency anemia Endoscopist: Edna Belle MD Anesthesia Provider: Dr Conde Anesthesia type: MAC Instrument: [id number] and [id number]-[id number] EGD Procedure:?? The procedure, indications, preparation and potential complications were reviewed with the patient, who indicated understanding and gave written informed consent to proceed. The endoscope was introduced through the mouth, and advanced to the 2nd part of the duodenum. The mucosa was carefully examined on slow withdrawal of the endoscope. The patient tolerated the procedure well. There were no immediate complications.? EGD Findings:? * Esophagus:? Normal esophageal mucosa was noted. The Z-line was at 35 cm displaced by moderate hiatal hernia with the diaphragmatic hiatus at 39 cm. Cold forceps biopsies were taken from middle and lower esophagus to rule out eosinophilic esophagitis. * Stomach:? Normal gastric mucosa. Retroflexion was performed in the cardia that shows Hill grade 3 hiatal hernia. Random cold forceps biopsies were taken from the stomach. * Duodenum:? Normal duodenal mucosa. Cold forceps biopsies were taken from the duodenal bulb and 2nd portion of the duodenum to rule out celiac sprue. Colonoscopy Procedure:? The patient was then turned for the colonoscopy. A digital rectal exam was performed which was normal.? A distal attachment cap was affixed to the tip of the scope and the colonoscope was then inserted through the anus and advanced through the colon and advanced to the cecum at 75 cm and terminal ileum.? Appendiceal orifice and ileocecal valve were identified. Mucosa was carefully examined under high definition white light as the instrument was slowly withdrawn in a retrograde panoramic fashion. Retroflexion was performed in ascending colon and rectum. The procedure was not difficult. The quality of the prep was BBPS: 3+3+3 = adequate Withdrawal time 12 minutes Limitations: No limitations Findings: Mucosa: Normal colon and terminal ileum mucosa. Protruding lesions: * Small internal hemorrhoids without stigmata of recent bleeding. Excavated lesions: * A few diverticula noted in the sigmoid colon. Impression: 1. Normal esophagus (biopsy) 2. Hiatal hernia 3. Normal stomach (biopsy) 4. Normal duodenum (biopsy) 5. Normal colon and terminal ileum mucosa 6. Diverticulosis 7. Internal hemorrhoids Recommendations:?? * Follow-up path results * Avoid NSAIDs * H Pylori treatment if biopsies + * Repeat colonoscopy for CRC screening in 10 years.
[2025-01-26 11:25] VITALS: BP 118/77; PULSE 70; RESP 16; TEMP 36.3; O2SAT 99
[2025-01-26 11:41] VITALS: BP 121/68; PULSE 81; RESP 17; TEMP 36.3; O2SAT 97
== END 2025-01-26 11:59 | disposition home or self-care (01) ==
PROVIDERS: Nurse Practitioner; PCP Physician Assistant; Visit Provider Internal Medicine
PROC: (CPT 45378; principal; 2025-01-26 10:00)
DX: D50.9 Iron deficiency anemia, unspecified (principal); K21.9 Gastro-esophageal reflux disease without esophagitis; K57.30 Diverticulosis of large intestine without perforation or abscess without bleeding; K64.8 Other hemorrhoids; K44.9 Diaphragmatic hernia without obstruction or gangrene
CPT/HCPCS: 45378; 43239; 81025; 88305; 88313; 88342; J2003; J2405; J2704; J3010

== ENCOUNTER → 2025-01-26 07:48 | Outpatient (BNV) | payer OTHER, SELFPAY | PROVIDERS: PCP Physician Assistant; Visit Provider Internal Medicine | DX: D50.9 Iron deficiency anemia, unspecified (principal); K44.9 Diaphragmatic hernia without obstruction or gangrene; K57.30 Diverticulosis of large intestine without perforation or abscess without bleeding; K64.8 Other hemorrhoids | CPT/HCPCS: 43239; 45378 ==

== ENCOUNTER 2025-02-17 07:46 | Outpatient (REF) | payer OTHER, SELFPAY ==
--- OUTSIDE RECORDS SUMMARY | 2025-02-13 10:30 | XMS_ITS | Encounter Summary ---
Author Organization [facility] Address [address] [place] [address] [place] [phone] Phone Care Team Providers Care Paratransit Driver Name Role Phone Sejal Ngo MD Primary Care Provider + Encounter Details Date Type Department Care Team (Latest Contact Info) Description 02/13/2025 10:30 AM EST Office Visit [facility] [address] [place] [address] Loida Riggs MD [address] [facility], 2nd [place] [address] [email or web address] Calculus of gallbladder without cholecystitis without obstruction (Primary Dx) Social History Tobacco Use Types Packs/Day Years Used Date Smoking Tobacco: Former Cigarettes Q uit: 2002 Smokeless Tobacco: Never Alcohol Use Standard Drinks/Week Comments Not Currently 0 (1 standard drink = 0.6 oz pur e alcohol) Education Answer Date Recorded Are you interested [...] Orientation Straight 12/15/2020 1: 20 AM EDT 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 Not on file Not on file No t on file documented as of this encounter Last Filed Vital Signs Vital Sign Reading Time Taken Comments Blood Pressure 120/74 02/13/2025 10:26 AM EST Pulse 73 02/13/2025 10:26 AM EST Temperature 36.7 C (98 F) 02/13/2025 10:26 AM EST Respiratory Rate - - Oxygen Saturation 98% 02/13/2025 10:26 AM EST Inhaled Oxygen Concentration - - Weight 115.7 kg (255 lb) 02/13/2025 10:26 AM EST Height 167.6 cm (5' 5.98 ) 02/13/2025 10:[address] Body Mass Index 41.18 02/13/2025 10:26 AM EST documented in this encounter Progress Notes * Loida Riggs MD - 02/13/2025 10:30 AM EST Subjective: Patient ID: The patient is a 44 y.o. year old who is a patient of Sejal Ngo MD who presents to discuss laparoscopic cholecystectomy. Briefly the patient has been having intermittent right upper quadrant pain that radiates to her right shoulder blade. She reports that this is a dull ache that is mostly there and is associated with some mild nausea. She underwent an ultrasound that showed multiplegallstones within the gallbladder without any evidence of cholecystitis. She has normal LFTs and other labs as well. She denies fever, chills. She does have shortness of breath but denies any chest pain. She has been eating relatively well and moving her bowels without difficulty. Problem List: Patient Active Problem List Diagnosis Vulvar rash Abnormal uterine bleeding Calculus of gallbladder without cholecystitis without obstruction Medical History: Past Medical History: Diagnosis Date Class 2 obesity due to excess calories with body mass index (BMI) of 39.0 to 39.9 in adult Gallstones GERD (gastroesophageal reflux disease) Hypercholesteremia Intrauterine device once in the past for 5 years and currently Surgical History: Past Surgical History: Procedure Laterality Date WISDOM TOOTH EXTRACTION Medications: Current Outpatient Medications on File Prior to Visit Medication Sig Dispense Refill Last Dispense albuterol 90 mcg/actuation inhaler INHALE 1 PUFF EVERY 4 HOURS NEEDED Unknown (patient-reported) ALPRAZolam (XANAX) 0.5 MG tablet Take 1 tablet by mouth 2 (two) times a day. Unknown (patient-reported) atorvastatin (LIPITOR) 10 MG tablet Take 10 mg by mouth daily. Unknown (patient-reported) cholecalciferol (VITAMIN D3) 400 unit tablet Take 400 Units by mouth daily. Unknown (patient-reported) citalopram (CELEXA) 20 MG tablet Take 20 mg by mouth daily. Unknown (patient-reported) famotidine (PEPCID) 40 MG tablet Take 1 tablet by mouth daily. Unknown (patient-reported) levonorgestreL (MIRENA) 20 mcg/24 hours (7 yrs) 52 mg intrauterine device 1 Device by Intrauterine route once. Inserted 05/22/17 Unknown (patient-reported) mecobalamin, vitamin B12, 5,000 mcg ODT disintegrating tablet mecobalamin (vitamin B12) 5,000 mcg disintegrating tablet Take 1 tablet every day by oral route. start daily x 30 days then every other day Unknown (patient-reported) omeprazole (PRILOSEC) 20 MG tablet Take 20 mg by mouth daily. Unknown (patient-reported) SYMBICORT 80-4.5 mcg/actuation inhaler Inhale 2 puffs into the lungs 2 (two) times a day. Unknown (patient-reported) [DISCONTINUED] dicyclomine (BENTYL) 10 MG capsule Take 1 capsule (10 mg total) by mouth 4 (four) times a day before meals and nightly. 20 capsule 0 Unknown (outside pharmacy) [DISCONTINUED] metoclopramide HCl (REGLAN) 10 MG tablet Take 1 tablet (10 mg total) by mouth 3 (three) times a day as needed for nausea. 10 tablet 0 Unknown (outside pharmacy) [DISCONTINUED] nystatin ointment Apply topically 2 (two) times a day. (Patient not taking: Reportedon 03/11/2023) 30 g 0 Unknown (outside pharmacy) [DISCONTINUED] triamcinolone acetonide 0.1 % ointment Apply topically 2 (two) times a day. Thin film for up to 4 weeks, can then use prn (Patient not taking: Reported on 03/11/2023) 30 g 0 Unknown (outside pharmacy) No current facility-administered medications on file prior to visit. Allergies: No Known Allergies Social History: Social History Tobacco Use Smoking status: Former Current packs/day: 0.00 Types: Cigarettes Quit date: 2002 Years since quittin.9 Smokeless tobacco: Never Vaping Use Vaping status: Former Substance Use Topics Alcohol use: Not Currently Drug use: Yes Frequency: 7.0 times per week Types: Marijuana Comment: smoked 2x daily Family History: Family History Problem Relation Age of Onset No Known Problems Mother No Known Problems Father No Known Problems Maternal Grandmother Heart disease Maternal Grandfather Objective: Blood pressure 120/74, pulse 73, temperature 36.7 ??C (98 ??F), height 167.6 cm (5' 5.98 ), weight 115.7 kg (255 lb), SpO2 98%, not currently . Constitutional: NAD, AAOx3 Head: Normocephalic, atraumatic Eyes: anicteric Neck: supple, trachea midline CV: RRR, no murmurs, rubs, or gallops Lungs: clear to auscultation b/l Abdomen: soft, NT, ND Extremities: Bilateral lower extremities warm and well perfused without edema or tenderness to palpation Neuro: grossly intact Psych: Cooperative, appropriate affect Review of Systems Constitutional: Negative for chills, fatigue and fever. HENT: Negative for changes in hearing, sore throat and trouble swallowing. Eyes: Positive for wears glasses. Respiratory: Positive for cough, shortness of breath and wheezing. Cardiovascular: Negative for chest pain and leg swelling. Gastrointestinal: Positive for abdominal pain, diarrhea and nausea. Negative for abdominal distention, blood in stool, constipation, heartburn and vomiting. Genitourinary: Positive for bladder incontinence. Negative for problems with urination, dysuria, flank pain, frequency and blood in urine. Neurological: Negative for dizziness and headaches. Psychiatric/Behavioral: Positive for sleep disturbance. Negative for dysphoric mood. The patient isnervous/anxious. Musculoskeletal: Positive for back pain. Negative for joint pain. Assessment/Plan: Problem List Items Addressed This Visit Gastrointestinal Calculus of gallbladder without cholecystitis without obstruction - Primary This is a 44-year-old woman who appears to be having biliary colic. She has ultrasound that shows gallstones without evidence of cholecystitis. All LFTs are within normal limits. I discussed laparoscopic cholecystectomy in detail including risk benefits and alternatives and answered all the patient's questions to her satisfaction. She was told she must avoid all heavy lifting greater than 5 to 10pounds for the first 2 weeks after surgery and greater than 15 pounds for another 2 weeks equal 4 weeks of lifting restrictions. We will follow-up with her 2 weeks following the procedure. The patient does not need any further preoperative workup and does not need to stop any specific medications prior to surgery. Relevant Orders Case request operating room: LAPAROSCOPIC CHOLECYSTECTOMY (Completed) documented in this encounter Miscellaneous Notes * Assessment & Plan Note - Loida Riggs MD - 02/13/2025 10:59 AM EST Associated Problem(s): Calculus of gallbladder without cholecystitis without obstruction This is a 44-year-old woman who appears to be having biliary colic. She has ultrasound that shows gallstones without evidence of cholecystitis. All LFTs are within normal limits. I discussed laparoscopic cholecystectomy in detail including risk benefits and alternatives and answered all the patient's questions to her satisfaction. She was told she must avoid all heavy lifting greater than 5 to 10pounds for the first 2 weeks after surgery and greater than 15 pounds for another 2 weeks equal 4 weeks of lifting restrictions. We will follow-up with her 2 weeks following the procedure. The patient does not need any further preoperative workup and does not need to stop any specific medications prior to surgery. documented in this encounter Plan of Treatment Upcoming Encounters Date Type Department Care Team (Latest Contact Info) Description 04/24/2025 Procedure Pass OR Admitting Dept - Virtual Department [address] [place] [id number] 04/24/2025 7:30 AM EST Hospital Encounter OR Admitting Dept - Virtual Department [address] [place] [phone] Loida Riggs MD [address] [place] [phone] [email or web address] 04/24/2025 7:30 AM EST - 04/24/2025 9:10 AM EST Surgery OR Admitting Dept - Virtual Department [address] [place] [phone] Loida Riggs MD [address] [place] [phone] [email or web address] LAPAROSCOPIC CHOLECYSTECTOMY 04/28/2025 10:15 AM EST Office Visit [facility] [address] [place] [phone] Bradley Philip MD, [place] [address] [address] [email or web address] [email or web address] Procedures Name Priority Associated Diagnoses Date/Ti me LAPAROSCOPIC CHOLECYSTECTOMY Calculus of gallbladder without cholecystitis without obstruction 04/24/2025 7:30 AM EST documented as of this encounter Goals Goal Patient Goal Type Associated Problems Recent Progress Patient-Stated? Author Autogenerat ed Goal Care Plan Autogenerated Problem No Alexandra Sotelo documented as of this encounter Visit Diagnoses Diagnosis Calculus of gallbladder without cholecystitis without obstruction- Primary Calculus of gallbladder without cholecystitis without obstruction documented in this encounter Additional Health Concerns Active Problems Noted Date Diagnosed Date Autogenerated Problem 02/13/2025 documented as of this encounter Care Teams Paratransit Driver Relationship Specialty Start Date End Date Sejal Ngo MD [address] [place] [phone] [email or web address] PCP - General Family Medicine 02/06/23 documented as of this encounter Additional Source Comments The information contained in this document represents components of the legal health record. It is not the complete legal health record.[facility]
--- NOTE | ~2025-02-17 | FL_ITS ---
EXAMINATION: XR BARIUM SWALLOW CLINICAL INFORMATION: Gastroesophageal reflux disease without esophagitis COMPARISON: None available. TECHNIQUE: Routine upright barium swallow was performed with thick barium and barium coated saltine crackers. Thin barium was administered in prone lying position. FINDINGS: Following oral administration of thick barium and effervescent granules there is normal propagation of bolus from the oral cavity through the pharynx, esophagus into stomach without obstruction, narrowing or stricture. No intraluminal filling defect or extrinsic compression seen. On oral administration of saltine crackers coated barium paste there is normal oral mastication and propagation of bolus from the oral cavity through the pharynx, esophagus into stomach. The GE junction is widely patent with no evidence of obstruction. On oral administration of thin barium in prone lying position there esophagus is widely patent without any intraluminal filling defect or obstruction. There is small sliding hiatal hernia but no gastroesophageal reflux could be demonstrated on placing patient in several different positions. FLUOROSCOPY TIME: 1 minute and 51 seconds DOSE AREA PRODUCT: 2329 uGy-m2 (microgray-meter squared) FL/FL barium swallow IMPRESSION: Small sliding hiatal hernia without gastroesophageal reflux seen. Rest of the barium swallow is unremarkable. Electronically signed by: Carter Mtz MD 02/17/2025 09:14 AM EST
--- OUTSIDE RECORDS SUMMARY | 2025-02-17 07:48 | XMS_ITS | Data Portability ---
Author Organization [facility], MAIN OFFICE Address [address] [place] [phone] Support Name Relationship Address Phone FREDERIC MAY Personal Relationship [address] [facility] [place] [address] Assessment Encounter Date Assessment Date Assessment LastModified [...] Treatment Reminders Order Date Submit Date Provider Name Organization Details Last Modified By Last Modified Time Details Appointments None record ed. Lab H pylori Ag, stool 2022 12:58: 51 023 [facility] [address], [address], Not Available 3 09:54:56 unlist ed lab 2022 12:58: 51 023 [facility] [address], [address], Not Available 3 09:54:51 folate , serum 2022 12:24: 44 023 [facility] [address], [address], Not Available 3 15:38:28 ferrit in, serum or plasma 2022 12:24: 43 023 [facility] [address], [address], Not Available 3 15:38:27 iron + total iron-b inding capaci ty (TIBC) , serum 2022 12:24: 43 023 [facility] [address], [address], Not Available 3 15:29:47 vitami n B12, serum 2022 12:24: 43 023 [facility] [address], [address], Not Available 3 15:38:25 CBC w/ auto diff 2022 12:17: 56 023 [facility] [address], [address], Not Available 3 16:53:36 lipid panel, serum 2022 12:17: 56 023 Joe Reinoso [facility] [address] [place], [address], Not Available 3 15:29:48 TSH, serum or plasma 2022 12:17: 55 023 Joe Reinoso [facility] [address] [place], [address], Not Available 3 15:38:29 CMP, serum or plasma 2022 12:17: 55 023 Joe Reinoso, [facility] [address] [place], [address], Not Available 3 15:29:45 Referral otolar yngolo gist referr al 2021 11:49: 09 022 Joe Reinoso DO [facility] (Records Request Only) [address] [place], [address], Not Available 2 14:36:35 Procedures treadm ill nuclea r stress test (PROC) 2022 13:15: 59 023 [facility] [address] [place], [address], Not Available 3 09:25:53 Surgeries None record ed. Imaging XR, should er, 2 or more view 2022 10:10: 26 023 [facility] [address] [place], [address], Not Available 3 05:00:55 MedicationOrder s atorva statin 10 mg tablet 2022 12:11: 25 [id number] [address] [facility] , [address], Ph [phone] Not Available Not available 3 12:18:00 Take 1 tablet every day by oral route. magnes ium 400 mg (as magnes ium oxide) tablet 2022 10:16: 34 [id number] [address] [facility] , [address], Ph [phone] Not Available Not available 3 10:17:10 Take 1 tablet by oral route. mecoba velia (vitam in B12) 5,000 mcg disint egrati ng tablet 2021 11:21: 29 [id number] [address] [facility] , [address], Ph [phone] Not Available Not available 2 11:25:39 Take 1 tablet every day by oral route. VaccineOrders None record ed. Patient TargetsNo targets recorded. Patient InstructionsNo instructions recorded. 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 Referral fo r Tinnitus Referring Physician: Joe Reinoso, Internal Medicine, Encounter Date: 11/14/2021 Results Created Date Observation Date Name Description Value Unit Range Abnormal Flag Specimen Type Note LastModifiedBy Organization Detail LastModifiedTime 11/14/19 22 11/13/2021 CBC (comp lete blood count ) with diff WBC 6.6 K/mm3 (4.0-1 1.0) Joe Reinoso [facility] , [address] [place] , [address], [place] , 11/26/2021 09:44:49 11/14/19 22 11/13/2021 CBC (comp lete blood count ) with diff RBC 4.64 M/mm3 (4.20- 5.40) Joe Reinoso [facility] , [address] [place] , [address], [place] , 11/26/2021 09:44:49 11/14/19 22 11/13/2021 CBC (comp lete blood count ) with diff HGB 14.4 gm/dL (11.7- 15.5) Joe Reinoso [facility] , [address] [place] , [address], [place] , 11/26/2021 09:44:49 11/14/19 22 11/13/2021 CBC (comp lete blood count ) with diff HCT 43.7 % (35.7- 45.8) [facility] , [address] [place] , [address], [place] , 11/26/2021 09:44:49 11/14/19 22 11/13/2021 CBC (comp lete blood count ) with diff MCV 94.2 fL (80.0- 100.0) [facility] , [address] [place] , [address], [place] , 11/26/2021 09:44:49 11/14/19 22 11/13/2021 CBC (comp lete blood count ) with diff MCH 31 pg (27.0- 34.0) [facility] , [address] [place] , [address], [place] , 11/26/2021 09:44:49 11/14/19 22 11/13/2021 CBC (comp lete blood count ) with diff MCHC 33 g/dL (33.0- 37.0) [facility] , [address] [place] , [address], [place] , 11/26/2021 09:44:49 11/14/19 22 11/13/2021 CBC (comp lete blood count ) with diff plt 372 K/mm3 (150-4 60) [facility] , [address] [place] , [address], [place] , 11/26/2021 09:44:49 11/14/19 22 11/13/2021 CBC (comp lete blood count ) with diff RDW-SD 41.9 fL (<47.0 ) [facility] , [address] [place] , [address], [place] , 11/26/2021 09:44:49 11/14/19 22 11/13/2021 CBC (comp lete blood count ) with diff MPV 9.5 fL (9.4-1 2.4) [facility] , [address] [place] , [address], [place] , 11/26/2021 09:44:49 11/14/19 22 11/13/2021 CBC (comp lete blood count ) with diff automated NRBC 0 #/100 WBC's [facility] , [address] [place] , [address], [place] , 11/26/2021 09:44:49 11/14/19 22 11/13/2021 CBC (comp lete blood count ) with diff abs. NRBC 0 K/mm3 [facility] , [address] [place] , [address], [place] , 11/26/2021 09:44:49 11/14/19 22 11/13/2021 CBC (comp lete blood count ) with diff neut # 4.1 K/mm3 (1.3-7 .0) [facility] , [address] [place] , [address], [place] , 11/26/2021 09:44:49 11/14/19 22 11/13/2021 CBC (comp lete blood count ) with diff lymph # 1.6 K/mm3 (0.8-3 .1) [facility] , [address] [place] , [address], [place] , 11/26/2021 09:44:49 11/14/19 22 11/13/2021 CBC (comp lete blood count ) with diff mono# 0.7 K/mm3 (0.4-0 .9) [facility] , [address] [place] , [address], [place] , 11/26/2021 09:44:49 11/14/19 22 11/13/2021 CBC (comp lete blood count ) with diff eo # 0.2 K/mm3 (0.0-0 .4) [facility] , [address] [place] , [address], [place] , 11/26/2021 09:44:49 11/14/19 22 11/13/2021 CBC (comp lete blood count ) with diff baso # 0 K/mm3 (0.0-0 .1) [facility] , [address] [place] , [address], [place] , 11/26/2021 09:44:49 11/14/19 22 11/13/2021 CBC (comp lete blood count ) with diff abs. imm gran 0 K/mm3 [facility] , [address] [place] , [address], [place] , 11/26/2021 09:44:49 11/14/19 22 11/13/2021 CBC (comp lete blood count ) with diff neut 62.5 % (44-76 ) [facility] , [address] [place] , [address], [place] , 11/26/2021 09:44:49 11/14/19 22 11/13/2021 CBC (comp lete blood count ) with diff lymph 23.8 % (15-43 ) [facility] , [address] [place] , [address], [place] , 11/26/2021 09:44:49 11/14/19 22 11/13/2021 CBC (comp lete blood count ) with diff monocyte 9.9 % (4.5-1 0.5) [facility] , [address] [place] , [address], [place] , 11/26/2021 09:44:49 11/14/19 22 11/13/2021 CBC (comp lete blood count ) with diff eo 2.7 % (0-6) [facility] , [address] [place] , [address], [place] , 11/26/2021 09:44:49 11/14/19 22 11/13/2021 CBC (comp lete blood count ) with diff baso 0.6 % (0-2) [facility] , [address] [place] , [address], [place] , 11/26/2021 09:44:49 11/14/19 22 11/13/2021 CBC (comp lete blood count ) with diff imm gran 0.5 % [facility] , [address] [place] , [address], [place] , 11/26/2021 09:44:49 11/14/19 22 11/13/2021 compr ehens franco metab olic panel glucose 99 mg/dL (70-99 ) [facility] , [address] [place] , [address], [place] , 11/26/2021 09:44:50 11/14/19 22 11/13/2021 compr ehens franco metab olic panel BUN 9 mg/dL (6-20) [facility] , [address] [place] , [address], [place] , 11/26/2021 09:44:50 11/14/19 22 11/13/2021 compr ehens franco metab olic panel creatinine 0.7 mg/dL (0.5-1 .0) [facility] , [address] [place] , [address], [place] , 11/26/2021 09:44:50 11/14/19 22 11/13/2021 compr ehens franco metab olic panel sodium 140 mmol/ L (133-1 45) [facility] , [address] [place] , [address], [place] , 11/26/2021 09:44:50 11/14/19 22 11/13/2021 compr ehens franco metab olic panel potassium 4.1 mmol/ L (3.6-5 .2) [facility] , [address] [place] , [address], [place] , 11/26/2021 09:44:50 11/14/19 22 11/13/2021 compr ehens franco metab olic panel chloride 104 mmol/ L (98-10 7) [facility] , [address] [place] , [address], [place] , 11/26/2021 09:44:50 11/14/19 22 11/13/2021 compr ehens franco metab olic panel bicarbonate 27 mmol/ L (22-29 ) [facility] , [address] [place] , [address], [place] , 11/26/2021 09:44:50 11/14/19 22 11/13/2021 compr ehens franco metab olic panel anion gap 9 (4-17) [facility] , [address] [place] , [address], [place] , 11/26/2021 09:44:50 11/14/19 22 11/13/2021 compr ehens franco metab olic panel albumin 4.9 gm/dL (3.4-4 .8) high [facility] , [address] [place] , [address], [place] , 11/26/2021 09:44:50 11/14/19 22 11/13/2021 compr ehens franco metab olic panel calcium 9.6 mg/dL (8.6-1 0.5) [facility] , [address] [place] , [address], [place] , 11/26/2021 09:44:50 11/14/19 22 11/13/2021 compr ehens franco metab olic panel bilirubin,to onrbert 0.4 mg/dL (0-1.2 ) [facility] , [address] [place] , [address], [place] , 11/26/2021 09:44:50 11/14/19 22 11/13/2021 compr ehens franco metab olic panel total protein 7.1 gm/dL (6.2-8 .2) [facility] , [address] [place] , [address], [place] , 11/26/2021 09:44:50 11/14/19 22 11/13/2021 compr ehens franco metab olic panel Ag ratio 2.2 [facility] , [address] [place] , [address], [place] , 11/26/2021 09:44:50 11/14/19 22 11/13/2021 compr ehens franco metab olic panel AST 11 U/L (0-32) [facility] , [address] [place] , [address], [place] , 11/26/2021 09:44:50 11/14/19 22 11/13/2021 compr ehens franco metab olic panel alk phos 75 U/L (35-10 4) [facility] , [address] [place] , [address], [place] , 11/26/2021 09:44:50 11/14/19 22 11/13/2021 compr ehens franco metab olic panel ALT 11 U/L (0-33) [facility] , [address] [place] , [address], [place] , 11/26/2021 09:44:50 11/14/19 22 11/13/2021 compr ehens franco metab olic panel estimated GFR creatinine 113 mL/mi n/1.7 3 M2 Creat inine based estim ated glome rular filtr ation (eGFR ) in adult s is calcu lated using the Natio nal Kidne y Found ation recom balwinder d 2020 CKD-E PI equat ion. Estim ates GFR from serum creat inine , age and sex. [facility] , [address] [place] , [address], [place] , 11/26/2021 09:44:50 11/14/19 22 11/13/2021 iron & TIBC iron 70 mcg/d L (30-16 0) [facility] , [address] [place] , [address], [place] , 11/26/2021 09:44:50 11/14/19 22 11/13/2021 iron & TIBC unsaturated iron binding capac 344 mcg/d L (110-3 70) [facility] , [address] [place] , [address], [place] , 11/26/2021 09:44:50 11/14/19 22 11/13/2021 iron & TIBC est T. iron bind capacity 414 mcg/d L (140-5 30) [facility] , [address] [place] , [address], [place] , 11/26/2021 09:44:50 11/14/19 22 11/13/2021 iron & TIBC % iron saturation 17 % (20-55 ) low [facility] , [address] [place] , [address], [place] , 11/26/2021 09:44:50 11/14/19 22 11/13/2021 lipid panel cholesterol, total 178 mg/dL (<200) Joe dhaliwal [facility] , [address] [place] , [address], [place] , 11/26/2021 09:44:51 11/14/19 22 11/13/2021 lipid panel triglyceride 103 mg/dL (<150) Joe fraga [facility] , [address] [place] , [address], [place] , 11/26/2021 09:44:51 11/14/19 22 11/13/2021 lipid panel HDL chol 58 mg/dL (>39) [facility] , [address] [place] , [address], [place] , 11/26/2021 09:44:51 11/14/19 22 11/13/2021 lipid panel LDL cholesterol, calculated 99 mg/dL (0-130 ) [facility] , [address] [place] , [address], [place] , 11/26/2021 09:44:51 11/14/19 22 11/13/2021 lipid panel non HDL cholesterol (calc) 120 mg/dL (<160) [facility] Danita dhaliwalRobert [facility]ck [facility] , [address] [place] , [address], [place] , 11/26/2021 09:44:51 11/14/19 22 11/13/2021 magne sium magnesium 2.2 mg/dL (1.6-2 .3) [facility] , [address] [place] , [address], [place] , 11/26/2021 09:44:51 11/14/19 22 11/13/2021 vitam in B12 vitamin B12 310 pg/mL (232-1 245) [facility] , [address] [place] , [address], [place] , 11/26/2021 09:44:52 11/14/19 22 11/13/2021 rafita tin ferritin 37 NG/mL (14-28 3) [facility] , [address] [place] , [address], [place] , 11/26/2021 09:44:52 11/14/19 22 11/13/2021 folic acid folic acid 12.4 NG/mL (4.8-3 7.3) [facility] , [address] [place] , [address], [place] , 11/26/2021 09:44:52 11/14/19 22 11/13/2021 TSH with refle x to FT4 (adul ts only) TSH 0.8 uIU/m L (0.4-4 .2) Joe Reinoso [facility] , [address] [place] , [address], [place] , 11/26/2021 09:44:53 11/14/19 22 11/13/2021 hemog lobin A1C hemoglobin A1C 5.1 % (4.0-5 .6) MONIT ORING : In known diabe tic patie nts, hemog lobin A1c targe ts shoul d be discu ssed with healt h [...] for devel oping diabe rossy in the futjanice NEAL ON: False ly low HbA1c resul [...] tion Volum e 43, Suppl ement 1 Joe Reinoso [facility] , [address] , [place] , [address], [place] , 11/26/2021 09:44:53 04/01/19 23 04/01/2022 compr ehens franco metab olic panel glucose 96 mg/dL (70-99 ) Joe Reinoso [facility] , [address] , [place] , [address], [place] , 04/04/2022 12:17:27 04/01/19 23 04/01/2022 compr ehens franco metab olic panel BUN 12 mg/dL (6-20) [facility] , [address] [place] , [address], [place] , 04/04/2022 12:17:27 04/01/19 23 04/01/2022 compr ehens franco metab olic panel creatinine 0.7 mg/dL (0.5-1 .0) [facility] , [address] [place] , [address], [place] , 04/04/2022 12:17:27 04/01/19 23 04/01/2022 compr ehens franco metab olic panel sodium 139 mmol/ L (133-1 45) [facility] , [address] [place] , [address], [place] , 04/04/2022 12:17:27 04/01/19 23 04/01/2022 compr ehens franco metab olic panel potassium 4.2 mmol/ L (3.6-5 .2) [facility] , [address] [place] , [address], [place] , 04/04/2022 12:17:27 04/01/19 23 04/01/2022 compr ehens franco metab olic panel chloride 104 mmol/ L (98-10 7) [facility] , [address] [place] , [address], [place] , 04/04/2022 12:17:27 04/01/19 23 04/01/2022 compr ehens franco metab olic panel bicarbonate 25 mmol/ L (22-29 ) [facility] , [address] [place] , [address], [place] , 04/04/2022 12:17:27 04/01/19 23 04/01/2022 compr ehens franco metab olic panel anion gap 10 (4-17) [facility] , [address] [facility] [place] , [address], [place] , 04/04/2022 12:17:27 04/01/19 23 04/01/2022 compr ehens franco metab olic panel albumin 4.6 gm/dL (3.4-4 .8) [facility] , [address] [place] , [address], [place] , 04/04/2022 12:17:27 04/01/19 23 04/01/2022 compr ehens franco metab olic panel calcium 9.6 mg/dL (8.6-1 0.5) [facility] , [address] [place] , [address], [place] , 04/04/2022 12:17:27 04/01/19 23 04/01/2022 compr ehens franco metab olic panel bilirubin,to norbert 0.5 mg/dL (0-1.2 ) [facility] , [address] [place] , [address], [place] , 04/04/2022 12:17:27 04/01/19 23 04/01/2022 compr ehens franco metab olic panel total protein 6.9 gm/dL (6.2-8 .2) [facility] , [address] [place] , [address], [place] , 04/04/2022 12:17:27 04/01/19 23 04/01/2022 compr ehens franco metab olic panel Ag ratio 2.0 [facility] , [address] [place] , [address], [place] , 04/04/2022 12:17:27 04/01/19 23 04/01/2022 compr ehens franco metab olic panel AST 10 U/L (0-32) [facility] , [address] [place] , [address], [place] , 04/04/2022 12:17:27 04/01/19 23 04/01/2022 compr ehens franco metab olic panel alk phos 68 U/L (35-10 4) [facility] , [address] [place] , [address], [place] , 04/04/2022 12:17:27 04/01/19 23 04/01/2022 compr ehens franco metab olic panel ALT 12 U/L (0-33) [facility] , [address] [place] , [address], [place] , 04/04/2022 12:17:27 04/01/19 23 04/01/2022 compr ehens franco metab olic panel estimated GFR creatinine 110 mL/mi n/1.7 3 M2 Creat inine based estim ated glome rular filtr ation (eGFR ) in adult s is calcu lated using the Natio nal Kidne y Found ation recom balwinder d 2020 CKD-E PI equat ion. Estim ates GFR from serum creat inine , age and sex. [facility] , [address] [place] , [address], [place] , 04/04/2022 12:17:27 04/01/19 23 04/01/2022 iron & TIBC iron 124 mcg/d L (30-16 0) [facility] , [address] [place] , [address], [place] , 04/04/2022 12:17:28 04/01/19 23 04/01/2022 iron & TIBC unsaturated iron binding capac 223 mcg/d L (110-3 70) [facility] , [address] [place] , [address], [place] , 04/04/2022 12:17:28 04/01/19 23 04/01/2022 iron & TIBC est T. iron bind capacity 347 mcg/d L (140-5 30) [facility] , [address] [place] , [address], [place] , 04/04/2022 12:17:28 04/01/19 23 04/01/2022 iron & TIBC % iron saturation 36 % (20-55 ) Joe Reinoso [facility] , [address] [place] , [address], [place] , 04/04/2022 12:17:28 04/01/19 23 04/01/2022 lipid panel cholesterol, total 173 mg/dL (<200) Joe dhaliwal [facility] , [address] [place] , [address], [place] , 04/04/2022 12:17:28 04/01/19 23 04/01/2022 lipid panel triglyceride 114 mg/dL (<150) Joe fraga [facility] , [address] [place] , [address], [place] , 04/04/2022 12:17:28 04/01/19 23 04/01/2022 lipid panel HDL chol 59 mg/dL (>39) Joe Reinoso [facility] , [address] [place] , [address], [place] , 04/04/2022 12:17:28 04/01/19 23 04/01/2022 lipid panel LDL cholesterol, calculated 91 mg/dL (0-130 ) Joe Reinoso [facility] , [address] [place] , [address], [place] , 04/04/2022 12:17:28 04/01/19 23 04/01/2022 lipid panel non HDL cholesterol (calc) 114 mg/dL (<160) Joe dhaliwal [facility] , [address] [place] , [address], [place] , 04/04/2022 12:17:28 04/01/19 23 04/01/2022 vitam in B12 vitamin B12 693 pg/mL (232-1 245) Joe Reinoso [facility] , [address] [place] , [address], [place] , 04/04/2022 12:17:28 04/01/19 23 04/01/2022 rafita tin ferritin 74 NG/mL (14-28 3) [facility] , [address] [place] , [address], [place] , 04/04/2022 12:17:29 04/01/19 23 04/01/2022 folic acid folic acid 7.9 NG/mL (4.8-3 7.3) [facility] , [address] [place] , [address], [place] , 04/04/2022 12:17:29 04/01/19 23 04/01/2022 TSH with refle x to FT4 (adul ts only) TSH 1.03 uIU/m L (0.4-4 .2) [facility] , [address] [place] , [address], [place] , 04/04/2022 12:17:29 04/01/19 23 04/01/2022 CBC (comp lete blood count ) with diff WBC 6.8 K/mm3 (4.0-1 1.0) [facility] , [address] [place] , [address], [place] , 04/04/2022 12:17:30 04/01/19 23 04/01/2022 CBC (comp lete blood count ) with diff RBC 4.87 M/mm3 (4.20- 5.40) [facility] , [address] [place] , [address], [place] , 04/04/2022 12:17:30 04/01/19 23 04/01/2022 CBC (comp lete blood count ) with diff HGB 14.6 gm/dL (11.7- 15.5) [facility] , [address] [place] , [address], [place] , 04/04/2022 12:17:30 04/01/19 23 04/01/2022 CBC (comp lete blood count ) with diff HCT 46 % (35.7- 45.8) high [facility] , [address] [place] , [address], [place] , 04/04/2022 12:17:30 04/01/19 23 04/01/2022 CBC (comp lete blood count ) with diff MCV 94.5 fL (80.0- 100.0) [facility] , [address] [place] , [address], [place] , 04/04/2022 12:17:30 04/01/19 23 04/01/2022 CBC (comp lete blood count ) with diff MCH 30 pg (27.0- 34.0) [facility] [facility] Reference Formerly [facility] , [address] [place] , [address], [place] , 04/04/2022 12:17:30 04/01/19 23 04/01/2022 CBC (comp lete blood count ) with diff MCHC 31.7 g/dL (33.0- 37.0) low [facility] , [address] [place] , [address], [place] , 04/04/2022 12:17:30 04/01/19 23 04/01/2022 CBC (comp lete blood count ) with diff plt 367 K/mm3 (150-4 60) [facility] , [address] [place] , [address], [place] , 04/04/2022 12:17:30 04/01/19 23 04/01/2022 CBC (comp lete blood count ) with diff RDW-SD 44.5 fL (<47.0 ) [facility] , [address] [place] , [address], [place] , 04/04/2022 12:17:30 04/01/19 23 04/01/2022 CBC (comp lete blood count ) with diff MPV 9.5 fL (9.4-1 2.4) [facility] , [address] [place] , [address], [place] , 04/04/2022 12:17:30 04/01/19 23 04/01/2022 CBC (comp lete blood count ) with diff automated NRBC 0 #/100 WBC's [facility] , [address] [place] , [address], [place] , 04/04/2022 12:17:30 04/01/19 23 04/01/2022 CBC (comp lete blood count ) with diff abs. NRBC 0 K/mm3 [facility] , [address] [place] , [address], [place] , 04/04/2022 12:17:30 04/01/19 23 04/01/2022 CBC (comp lete blood count ) with diff neut # 3.7 K/mm3 (1.3-7 .0) [facility] , [address] [place] , [address], [place] , 04/04/2022 12:17:30 04/01/19 23 04/01/2022 CBC (comp lete blood count ) with diff lymph # 2.1 K/mm3 (0.8-3 .1) [facility] , [address] [place] , [address], [place] , 04/04/2022 12:17:30 04/01/19 23 04/01/2022 CBC (comp lete blood count ) with diff mono# 0.8 K/mm3 (0.4-0 .9) [facility] , [address] [place] , [address], [place] , 04/04/2022 12:17:30 04/01/19 23 04/01/2022 CBC (comp lete blood count ) with diff eo # 0.2 K/mm3 (0.0-0 .4) [facility] , [address] [place] , [address], [place] , 04/04/2022 12:17:30 04/01/19 23 04/01/2022 CBC (comp lete blood count ) with diff baso # 0.1 K/mm3 (0.0-0 .1) [facility] , [address] [place] , [address], [place] , 04/04/2022 12:17:30 04/01/19 23 04/01/2022 CBC (comp lete blood count ) with diff abs. imm gran 0 K/mm3 [facility] , [address] [place] , [address], [place] , 04/04/2022 12:17:30 04/01/19 23 04/01/2022 CBC (comp lete blood count ) with diff neut 54.2 % (44-76 ) [facility] , [address] [place] , [address], [place] , 04/04/2022 12:17:30 04/01/19 23 04/01/2022 CBC (comp lete blood count ) with diff lymph 30.4 % (15-43 ) [facility] , [address] [place] , [address], [place] , 04/04/2022 12:17:30 04/01/19 23 04/01/2022 CBC (comp lete blood count ) with diff monocyte 11.6 % (4.5-1 0.5) high [facility] , [address] [place] , [address], [place] , 04/04/2022 12:17:30 04/01/19 23 04/01/2022 CBC (comp lete blood count ) with diff eo 2.8 % (0-6) [facility] , [address] [place] , [address], [place] , 04/04/2022 12:17:30 04/01/19 23 04/01/2022 CBC (comp lete blood count ) with diff baso 0.7 % (0-2) [facility] , [address] [place] , [address], [place] , 04/04/2022 12:17:30 04/01/19 23 04/01/2022 CBC (comp lete blood count ) with diff imm gran 0.3 % [facility] , [address] [place] , [address], [place] , 04/04/2022 12:17:30 08/14/19 23 08/13/2022 calpr otect in,fe oneil results Patie nt refus ed, reord er test if neede d [facility] , [address] [place] [address] , [address], [place] , 08/13/2022 11:08:02 08/14/19 23 08/13/2022 H. pylor i antig en, stool results Patie nt refus ed, reord er test if neede d [facility] , [address] [place] , [address], [place] , 08/13/2022 11:08:03 04/03/2022 04/03/2022 No observation recorded. Joe Reinoso [facility] (Pathology) , [address] [place] [address] , [address], [place] , 04/04/2022 12:14:25 04/29/2022 04/29/2022 treadmill nuclear stress test (PROC) No observation recorded. Joe Reinoso DO Not Available 05/01/2022 09:18:29 04/29/2022 04/29/2022 No observation recorded. Joe Reinoso [facility] , [address] [place] [address] , [address], [place] , 05/01/2022 09:17:57 Result Notes None recorded. Medical Equipment None Reported. Allergies No known drug allergies Medications Name Authored On Sig Start Date Stop Date Status Note Indication Fill Status Repeat Number Dispense Quantity LastModified by Organization Details LastModified Time cyclo benza marcell 10 mg table t 2 21:00:44 TAKE 1 TABL ET BY MOUT H AT BEDT ISABEL NEED ED FOR 10 DAYS active Not Available Not availab le 0 Not Available Not Available [facility] 06/22/2021 21:00:44 ondan setro n 8 mg disin tegra ting table t 2 21:00:44 TAKE 1 TABL ET BY MOUT H EVER Y 6 HOUR S NEED ED FOR NAUS EA & VOMI TING active Not Available Not availab le 0 Not Available Not Available [facility] 06/22/2021 21:00:44 sulfa metho xazol e 800 mg-tr imeth oprim 160 mg table t 2 21:00:44 TAKE 1 TABL ET BY MOUT H EVER Y 12 HOUR S FOR 5 DAYS active Not Available Not availab le 0 Not Available Not Available [facility] 06/22/2021 21:00:44 triam cinol one aceto nide 0.1 % topic al cream 2 21:00:44 APPL Y TOPI CALL Y TWIC E A WEEK FOR 10 DAYS active Not Available Not availab le 0 Not Available Not Available [facility] 06/22/2021 21:00:44 nysta tin 100,0 00 unit/ gram topic al ointm ent 2 06:42:57 APPL Y TO AFFE CTED AREA TWIC E A DAY active Not Available Not availab le 0 Not Available Not Available [facility] 11/14/2021 06:42:57 triam cinol one aceto nide 0.1 % topic al ointm ent 2 06:42:57 APPL Y TOPI CALL Y A THIN FILM TWIC E A DAY NEED ED FOR UP TO 30 DAYS active Not Available Not availab le 0 Not Available Not Available [facility] 11/14/2021 06:42:57 mecob vilma n (fang min B12) 5,000 mcg disin tegra ting table t 2 11:21:29 Take 1 tabl et ever y day by oral rout e. complet ed Vitamin B12 deficiency (non anemic) Not availab le 0 Not Available Not Available [facility] 11/14/2021 11:25:39 omepr azole 20 mg capsu le,de layed relea se 2 11:46:50 TAKE 1 CAPS ULE BY MOUT H EVER Y DAY active Not Available Not availab le 0 Not Available Not Available [facility] 11/24/2021 11:46:50 magne sium 400 mg (as magne sium oxide ) table t 3 10:16:34 Take 1 tabl et by oral rout e. complet ed Pain of right shoulder joint Not availab le 3 Not Available Not Available [facility] 03/15/2022 10:17:10 melox icam 7.5 mg table t 3 12:10:20 TAKE 1 TABL ET BY MOUT H EVER Y DAY active Not Available Not availab le 0 Not Available Not Available [facility] 03/23/2022 12:10:20 atorv astat in 10 mg table t 3 12:11:25 Take 1 tabl et ever y day by oral rout e. complet ed Hyperlipide marisa Not availab le 2 Not Available Not Available [facility] 03/31/2022 12:18:00 famot idine 40 mg table t 3 06:02:50 TAKE 1 TABL ET BY MOUT H EVER Y DAY active Not Available Not availab le 0 Not Available Not Available [facility] 04/10/2022 06:02:50 panto prazo le 40 mg table t,del ayed relea se 3 06:02:50 TAKE 1 TABL ET BY MOUT H EVER Y DAY active Not Available Not availab le 0 Not Available Not Available [facility] 04/10/2022 06:02:50 magne sium oxide 400 mg (241. 3 mg magne sium) table t 3 13:09:11 active Not Available Not availab le 0 Not Available Not Available [facility] 04/13/2022 13:09:11 alpra zolam 0.5 mg table t 3 12:38:19 TAKE 1 TABL ET BY MOUT H TWIC E A DAY active Not Available Not availab le 0 Not Available Not Available [facility] 04/20/2022 12:38:19 Paxil 20 mg table t 3 10:38:10 Take 1 tabl et ever y day by oral rout e. 05/29 aborted Generalized anxiety disorder Not availab le 3 Not Available Not Available [facility] 05/29/2022 10:49:38 cital opram 10 mg table t 3 06:02:50 TAKE 1 TABL ET BY MOUT H EVER Y DAY 05/29 aborted Not Available Not availab le 0 Not Available Joe Reinoso DO [address], [place], [address], [place] [facility] 05/29/2022 10:51:15 Binax NOW COVID -19 Ag Self Test kit 3 11:47:48 TEST DIRE CTED TODA Y active Not Available Not availab le 0 Not Available Not Available [facility] 06/08/2022 11:47:48 Celex a 20 mg table t 4 11:04:31 Take 1 tabl et(s ) ever y day by oral rout e. complet ed Not Available Not availab le 0 Not Available Not Available [facility] 02/24/2023 12:56:56 Vitals Date Recorded Body height Body mass index (BMI) Body weight Oxygen saturation Provider Name and Address Organization Details Last Updated DateTime 03/31/2022 167.64 cm 38.7 kg/m2 260511.17 g 98 % Joe Reinoso DO [address], [place], [address], [place] [facility] 03/31/2022 12:04:54 Date Recorded Body height Body mass index (BMI) Body weight Respiratory rate Heart rate Oxygen saturation Systolic And Diastolic Provider Name and Address Organization Details Last Updated DateTime 2 167.64 cm 38.7 kg/m2 284796. 17 g 12 /min 93 /min 96 % 115/65 mm[Hg] Joe Reinoso DO [address], [place], [address], [place] [facility] 10:55:17 Social History Question Answer Notes LastModified by Organizat ion Details LastModified Time Tobacco Smoking Status Former Smoker Joe SanDO flakito [address], [address], [place] [facility] 06/25/2021 13:41:08 What Is Your Level Of Alcohol Consumption? only 2-3 per weekend but considering to completely stop. Joe ReinosoDO [address], [place], [address], [place] [facility] 06/25/2021 13:41:08 What is your relationship status? Joe ReinosoDO [address] [place], [address], [place] [facility] 06/25/2021 13:37:01 Are you sexually active? Yes Joe ReinosoDO [address], [place], [address], [place] [facility] 06/25/2021 13:37:01 Do you use protection during sex? Had IUD coming out. will use condoms and wants a break. will condomes for a while Joe ReinosoDO [address], [address], [place] [facility] 06/25/2021 13:37:01 How many children do you have? 3 youngest is 13 and oldest is 18. Joe Reinoso DO [address], [address], [place] [facility] 06/25/2021 13:37:01 What type of diet are you following? Regular GERD diet Joe ReinosoDO [address], [place], [address], [place] [facility] 06/25/2021 13:38:08 Do you have any dietary restrictions? No Joe ReinosoDO [address], [place], [address], [place] [facility] 06/25/2021 13:38:08 What is your level of caffeine consumption? 2-4 per day Joe Reinoso DO [address], [place], [address], [place] [facility] 06/25/2021 13:41:08 Do you have any pets? No Joe Reinoso, DO [address], [place], [address], [place] [facility] 06/25/2021 13:42:17 Do you have a humidifier? Yes Joe Reinoso, [address], [place], [address], [place] [facility] 06/25/2021 13:42:17 Are there any guns present in your home? locked and stored properly Joe ReinosoDO [address], [place], [address], [place] [facility] 06/25/2021 13:42:17 What is the highest grade or level of school you have completed or the highest degree you have received? High school graduate Joe ReinosoDO [address], [place], [address], [place] [facility] 06/25/2021 13:42:49 Are you currently in school? No Joe Reinoso, [address], [place], [address], [place] [facility] 06/25/2021 13:42:49 Do you participate in social media? not a lot Joe ReinosoDO [address], [place], [address], [place] [facility] 06/25/2021 13:44:27 Do you use your seat belt or car seat routinely? Yes Joe ReinosoDO [address], [place], [address], [place] [facility] 06/25/2021 13:44:27 Social History Observation Description Date Observed Sex Unknown 05/05/2023 Legal Sex Female No social history survey screeners recorded No social history SDOH screeners recorded Functional Status Question Answer Note LastModified by Organizat ion Details LastModified Time What is your exercise level? some Joe Reinoso DO [address], [place], [address], [place] [facility] 06/25/2021 13:38:08 What is your level of alcohol consumption? only 2-3 per weekend but considering to completely stop. Joe Reinoso DO [address], [place], [address], [place] [facility] 06/25/2021 13:41:08 Do you use any illicit or recreational drugs? was a heavy pot smoker but stopped 10 days ago. Was mostly social Joe Reinoso DO [address], [place], [address], [place] [facility] 06/25/2021 13:41:08 Have you been exposed to chemicals or toxins? drinks filtered water Joe Reinoso DO [address], [address], [place] [facility] 06/25/2021 13:42:17 Are you currently employed? for [employer]. Joe Reinoso DO [address], [place], [address], [place] [facility] 06/25/2021 13:43:05 No Functional Screening assessment recorded No Functional SDOH screeners recorded Mental Status Question Answer Note LastModified by Organizat ion Details LastModified Time Do you feel stressed (tense, restless, nervous, or anxious, or unable to sleep at night)? To some extent In cycles. ok now. No change since she stopped POt Joe Reinoso DO [address], [place], [address], [place] [facility] 06/25/2021 13:44:27 No Mental Screening assessment recorded No Mental SDOH screeners recorded Family History Relationship Description Onset Age of this Age Resolved Age Notes LastModified by Organization Details LastModified Time Maternal Grandfather Coronary arterioscler osis 76 had lung cancer Not available 06/25/2021 13:32:44 Notes:Her father side [facility] is [facility]. Medical History Condition Response Acid Reflux (GERD) Y High Cholesterol Y Gynecological History Statement/Question Response STIs/STDs Abnormal Pap Sexually Active? Y Obstetrics History GPAL:G 0 P 0 0 0 0 Past Encounters Encounter ID Performer Location Encounter Start Date Encounter Closed Date Diagnosis/Indication Diagnosis SNOMED-CT Code Diagnosis ICD10 Code Diagnosis IMO Codes Diagnosis Note [id number] Joe Reinoso DO MAIN OFFICE [address] [facility] [address] [place] [address] 06/25/2021 13:16:47 06/25/2021 15:06:16 Tight chest 84505746 R07.89 occurs at night when lying down [...] ruled out when she was younger. 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 TSH, Vit D, B12.Pt has stopped pot which should help regulate her appetite. Mild inter mittent asthma 195138601 J45.20 uses Inhaler as need mostly after walk.This issue should improve since she has stopped smoking pot and planning to lose weight. Sciatica 53070371 M54.31 Showed pt certain exercises to do.pt to use standing desk.p is working on wt loss. [id number] Joe Reinoso DO MAIN OFFICE [address] [facility] [address] [place] [address] 11/14/2021 10:50:03 11/15/2021 15:31:46 Inflammatory bowel disease 91989877 K52.9 GERDSigns of IBD including loose stool [...] eval. Vitamin B1 2 deficiency (non anemic) 63048024 E53.8 less than 300start daily SL x 1 month decrease to EOD after that. Tinnitus 85328462 H93.11 pounding sound in R ear x 3 weeks, specially at night.No loss of hearing. No dizziness or neuro deficit.No recent viral illnessMos t likely due to anxiety and B12 deficiency .No abnormalit y noted on PEBP is normalExte rnal ear is normal. Generalize d anxiety disorder 69248169 F41.1 Pt is very anxiousHas stopped smoking pot.TSH and vit D was ggraogQ23 was low.She has signs of IBD.Recomm ended therapy and meditation B12 supplement would helpDaily exercise and meditation .Since she is very stressed will give 6 tabs of xanax. This is not mcc treatment for anxiety and is given since she has acute anxiety. If she does not improve with above interventi ons then she might need SSRIs. Chest pain 91660556 R07. 9 ED w/u negative including lab work, EKG and CXREpigast juan tenderness persists which is GERD and hiatal hernia.Tri ed to reassure the pt.lipid panel was normalNo sign of cardiac disease since no issues with activity.p t did not want a stress test at this time.She should take protonix for the next 2 weeks and then will reassess. Pain of right calf [address] 86285 119192 M79.661 Noted to have varicosed vein.Negat franco for Homans sign, less likely to be [...] [id number] Joe Reinoso DO MAIN OFFICE [address] [facility] [address] [place] [address] 12/12/2021 10:49:34 12/12/2021 12:18:14 COVID-19 178303391 U07.1 Symptomati c x2 daysup to 1 [...] office to treat and prevent long COVID. [id number] Joe Reinoso DO MAIN OFFICE [address] [facility] [address] [place] [address] 03/15/2022 09:59:40 04/02/2022 13:57:17 Pain of right shoulder joint [id number] 8207959 M25.511 Trauma/fal l 5 days ago.She landed on her buttocks and slid down the stairs. She thinks she used her arm to prevent sliding further.A hard 3cm x 3cm lump under bicep muscle notes. Most likely small hematoma.S he is having pain when lifting shoulder from side and trying to scratch her back.Some tenderness to touch on the bicep.Pass franco ROM also decreased when tried to bring [...] improvemen t in 7-10 days. [id number] Joe Reinoso, DO MAIN OFFICE [address] [facility] [address] [place] [address] 03/31/2022 11:56:28 04/28/2022 09:57:39 Gastroesophageal reflux disease 023641795 K21.9 Epigastric pain improves with food and [...] would be helpful. Generalize d anxiety disorder 61021898 F41.1 Pt is very anxiousHas stopped smoking pot.TSH and vit D was iizkolS20 was low.She has signs of IBD.Recomm ended therapy and meditation B12 supplement would helpDaily exercise and meditation .Since she is very stressed will give 6 tabs of xanax. This is not termination clerk treatment for anxiety and is given since she has acute anxiety. If she does not improve with above interventi ons then she might need SSRIs. Hyperlipidemia 67891263 E78.5 on statinDisc ussed dietsugar is the biggest culprit [id number] Joe Reinoso DO MAIN OFFICE [address] [place] [address] 04/10/2022 12:35:37 04/28/2022 10:18:53 Generalized anxiety disorder 36042520 F41.1 04/10/22On celexa for 1 week. still [...] stopped smoking pot.TSH and vit D was cfzkkzY37 was low.She has signs of IBD.Recomm ended therapy and meditation B12 supplement would helpDaily exercise and meditation .Since she is very stressed will give 6 tabs of xanax. This is not termination clerk treatment for anxiety and is given since she has acute anxiety. If she does not improve with above interventi ons then she might need SSRIs. Palpitations 11136558 R0 0.2 Can hear her heart beat [...] go to ED. Gastroesop hageal reflux disease 660779026 K21.9 04/10/22Has hietal herniaTake s pepcid at [...] helpful. Vitamin B1 2 deficiency (non anemic) 96192344 E53.8 04/10/22B12 and iron deficiency has resolved on current regiment of SL B12 and probiotics 2-3 time per weeknow 700Was less than 300 Health Concerns Section Related Observation LastModified by Organization Detai ls LastModified Time None Recorded Concern Status LastModified by Organization Details LastModified Time None Recorded SDOH Concern Status LastModified by Organization Detai ls LastModified Time None Recorded Advance Directives Directive None Recorded Payers Insurance Date Sequence Insurance Name Policy Number Policy John Covered Member ID John Member ID Guarantor Name 03/30/2023 1 [facility] [id number] May Frederic [id number] May Frederic Notes Date Note Type Note Provider Name [...] 38Sticky BMs. bloating with certain foods. Joe Reinoso DO [address] [facility] [address] [place], [address], [facility] 11/15/2021 08:55:38 12/12/2021 text/html ROS as noted in the HPI Day 2 of symptomstested positive for COVID yesterday on home test.achy and vomiting [id number] not checked temp, but has sweatsDenies severe ORANTES, CP, SOB. Joe Reinoso DO [address] [facility] [address], [place], [address], [facility] - [facility] 12/12/2021 [...] lidocaine patch or icing the area. Joe Reinoso DO [address] [facility] [address], [place], [address], [facility] 03/15/2022 [...] stopped smoking pot.TSH and vit D was pvouejS45 was low.She has signs of IBD.Recommended therapy and [id number] supplement would helpDaily exercise and meditation.Since she is very stressed will give 6 tabs of xanax. This is not termination clerk treatment for anxiety and is given since she has acute anxiety. If she does not improve with above interventions then she might need SSRIs. Joe Reinoso, DO [address] [facility] [address], [place], [address], [place] - [facility] [...] per weeknow 700Was less than 300 Joe Reinoso, DO [address] [facility] [address], [place], [address], [place] [facility] 04/14/2022 19:42:07 Care Team Name Role Member ID Specialty Address Phone None Recorded. OBGyn Episode No OBEpisode recorded.
--- OUTSIDE RECORDS SUMMARY | 2025-02-17 07:48 | XMS_ITS | Encounter Summary ---
Author Organization [facility] Address [address] [place] [address] [place] [address] Phone Care Team Providers Care Fundraising Specialist Name Role Phone Michi Soria NP Primary Care Provider [phone] Joe Reinoso DO Primary Care Provider [phone] Sejal Ngo MD Primary Care Provider + Encounter Details Date Type Department Care Team (Late st Contact Info) Description 12/12/2021 Procedure Pass [address] [address] Social History Tobacco Use Types Packs/Day Years [...] Pass OR Admitting Dept - Virtual Department [address] [place] [address] 04/24/2025 7:30 AM [facility] Hospital Encounter OR Admitting Dept - Virtual Department [address] [place] [address] Loida Riggs MD [address] [place] [address] [email or web address] 04/24/2025 7:30 AM EST - 04/24/2025 9:10 AM EST Surgery OR Admitting Dept - Virtual Department [address] [place] [address] Loida Riggs MD [address] [place] [address] [email or web address] LAPAROSCOPIC CHOLECYSTECTOMY 04/28/2025 10:15 AM EST Office Visit [facility] Pulmonology, All[facility] [address] [place] [address] Bradley Philip MD, MS [address] [place] [address] [email or web address] Scheduled Procedures Name Priority Associated Diagnoses Date/Ti me LAPAROSCOPIC CHOLECYSTECTOMY Calculus of gallbladder without cholecystitis without obstruction 04/24/2025 7:30 AM EST documented as of this encounter Visit Diagnoses Not on filedocumented in this encounter Additional Health Concerns Infection Onset Date Last Indicated Resolved Time CoV-Risk 03/16/2024 03/16/2024 03/27/2024 2:34 AM EST documented as of this encounter Care Teams Fundraising Specialist Relationship Specialty Start Date End Date Michi Soria NP [address] [place] [address] [email or web address] PCP - General Family Medicine 12/17/19 04/01/22 Joe Reinoso DO [address] [place] [phone] [email or web address] PCP - General Internal Medicine 04/02/22 02/05/23 Sejal Ngo MD [address] [place] [address] [email or web address] PCP - General Family Medicine 02/06/23 documented as of this encounter Additional Source Comments The information contained in this document represents components of the legal health record. It is not the complete legal health record.[facility]
--- OUTSIDE RECORDS SUMMARY | 2025-02-17 07:48 | XMS_ITS | Encounter Summary ---
Author Organization [facility] Address [address] [place] [address] Phone Care Team Providers Care Cut Off Saw Operator Pipe Blanks Name Role Phone Michi Soria NP Primary Care Provider [phone] Joe Reinoso DO Primary Care Provider [phone] Sejal Ngo MD Primary Care Provider + Encounter Details Date Type Department Care Team (Latest Contact Info) Description 03/05/2021 Transcribe Orders Virtual Department [address] [place] [address] Lacie Valle PA [address] [place] [address]. [place] [address] [email or web address] Thyroid nodule (Primary Dx) Social History [...] Pass OR Admitting Dept - Virtual Department [address] [place] [address] 04/24/2025 7:30 AM EST Hospital Encounter OR Admitting Dept - Virtual Department [address] [place] [address] Loida Riggs MD [address] [place] [address] [email or web address] 04/24/2025 7:30 AM EST - 04/24/2025 9:10 AM EST Surgery OR Admitting Dept - Virtual Department [address] [place] [address] Loida Riggs MD [address] [place] [address] [email or web address] LAPAROSCOPIC CHOLECYSTECTOMY 04/28/2025 10:15 AM EST Office Visit [facility] Pul[facility]ology, All[facility] [address] [place] [address] Bradley Philip MD, MS [address] [place] [address] [email or web address] Scheduled Procedures Name Priority Associated Diagnoses Date/Ti me LAPAROSCOPIC CHOLECYSTECTOMY Calculus of gallbladder without cholecystitis without obstruction 04/24/2025 7:30 AM EST documented as of this encounter Results * [...] follow up is required. us Lacie LR IM US THYROID Final Result documented in this encounter Visit Diagnoses Diagnosis Thyroid nodule- Primary Nontoxic uninodular goiter Thyroid nodule Nontoxic uninodular goiter Calculus of gallbladder without cholecystitis without obstruction documented in this encounter Additional Health Concerns Infection Onset Date Last Indicated Resolved Time CoV-Risk 03/16/2024 03/16/2024 03/27/2024 2:34 AM EST documented as of this encounter Care Teams Cut Off Saw Operator Pipe Blanks Relationship Specialty Start Date End Date Michi Soria NP [address] [place] [address] [email or web address] PCP - General Family Medicine 12/17/19 04/01/22 Joe Reinoso DO [address] [place] [address] [email or web address] PCP - General Internal Medicine 04/02/22 02/05/23 Sejal Ngo MD [address] [place] [address] [email or web address] PCP - General Family Medicine 02/06/23 documented as of this encounter Additional Source Comments The information contained in this document represents components of the legal health record. It is not the complete legal health record.[facility]
--- OUTSIDE RECORDS SUMMARY | 2025-02-17 07:48 | XMS_ITS | Encounter Summary ---
Author Organization [facility] Address [address] [place] [address] Phone Care Team Providers Care Urologist Name Role Phone Michi Soria NP Primary Care Provider [phone] Joe Reinoso DO Primary Care Provider [phone] Sejal Ngo MD Primary Care Provider + Reason for Referral * MRI/CAT Scan - Closed Specialty Diagnoses / Procedures Referred By Contjonathan t Referred To Contact Radiology Diagnoses Sensorineural hearing loss (SNHL), unspecified laterality Pulsatile tinnitus of right ear Procedures MRI Angio Brain CHG MR ANGIO, HEAD Alexandra Nelson PA-C Phone: tel: fax: [email or web address] Referral ID Status Reason Start Date Expiration Date Visits Re quested Visits Authorized [id number] Closed 12/09/2021 02/07/2022 1 1 Encounter Details Date Type Department Care Team (Late st Contact Info) Description 12/16/2021 Transcribe Orders Virtual Department 30 [place] [address] Alexandra Nelson PA-C [address] [place] [address] Sensorineural hearing loss (SNHL), unspecified laterality (Primary [...] Pass OR Admitting Dept - Virtual Department [address] [place] [address] 04/24/2025 7:30 AM EST Hospital Encounter OR Admitting Dept - Virtual Department [address] [place] [address] Loida Riggs MD [address] [place] [address] [email or web address] 04/24/2025 7:30 AM EST - 04/24/2025 9:10 AM EST Surgery OR Admitting Dept - Virtual Department [address] [place] [address] Loida Riggs MD [address] [place] [address] [email or web address] LAPAROSCOPIC CHOLECYSTECTOMY 04/28/2025 10:15 AM EST Office Visit [facility] Pulmonology, Allergy and Critical Care Medicine Clinic [address] [place] [address] Bradley Philip MD, MS [address] [address] Scheduled Procedures Name Priority Associated Diagnoses Date/Ti ar LAPAROSCOPIC CHOLECYSTECTOMY Calculus of gallbladder without cholecystitis [...] head was performed without intravenous gadolinium, using [id number]-[id number] technique. COMPARISON: None FINDINGS: MRI BRAIN AND [...] the head was performed withoutintravenous gadolinium, using plgr-am-[id number] technique. COMPARISON: None FINDINGS: MRI BRAIN AND [...] ear Sensorineural hearing loss (SNHL), unspecified laterality Calculus of gallbladder without cholecystitis without obstruction documented in this encounter Additional Health Concerns Infection Onset Date Last Indicated Resolved Time CoV-Risk 03/16/2024 03/16/2024 03/27/2024 2:34 AM EST documented as of this encounter Care Teams Urologist Relationship Specialty Start Date End Date Michi Soria NP [address] [place] [address] [email or web address] PCP - General Family Medicine 12/17/19 04/01/22 Joe Reinoso DO [address] [facility] 20 [place] [address] [email or web address] PCP - General Internal Medicine 04/02/22 02/05/23 Sejal Ngo MD [address] [place] [address] [email or web address] PCP - General Family Medicine 02/06/23 documented as of this encounter Additional Source Comments The information contained in this document represents components of the legal health record. It is not the complete legal health record.[facility]
--- OUTSIDE RECORDS SUMMARY | 2025-02-17 07:48 | XMS_ITS | Encounter Summary ---
Author Organization [facility] Address [address] [place] [address] Phone Care Team Providers Care Event Marketing Intern Name Role Phone Michi Soria NP Primary Care Provider [phone] Joe Reinoso DO Primary Care Provider [phone] Sejal Ngo MD Primary Care Provider + Encounter Details Date Type Department Care Team (Latest Contact Info) Description 09/19/2020 Transcribe Orders Virtual Department 30 [place] [address] Michi Soria NP [address] [place] [address] [email or web address] Thyromegaly (Primary Dx) Social History Tobacco [...] OR Admitting Dept - Virtual Department [address] [place] [address] 04/24/2025 7:30 AM EST Hospital Encounter OR Admitting Dept - Virtual Department [address] [place] [address] Loida Riggs MD [address] [place] [address] [email or web address] 04/24/2025 7:30 AM EST - 04/24/2025 9:10 AM EST Surgery OR Admitting Dept - Virtual Department [address] [place] [address] Loida Riggs MD [address] [place] [address] [email or web address] LAPAROSCOPIC CHOLECYSTECTOMY 04/28/2025 10:15 AM EST Office Visit [facility] Pulmonology, Allergy and Critical Care Medicine Clinic [address] [place] [address] Bradley Philip MD, MS [address] [place] [address] [email or web address] Scheduled Procedures Name Priority Associated Diagnoses Date/Ti wv LAPAROSCOPIC CHOLECYSTECTOMY Calculus of gallbladder without cholecystitis [...] a follow-up ultrasound in 6 months isrecommended. us Michi Soria NP IMG US THYROID Final Result documented in this encounter Visit Diagnoses Diagnosis Thyromegaly- Primary Goiter, unspecified Thyromegaly Goiter, unspecified Calculus of gallbladder without cholecystitis without obstruction documented in this encounter Additional Health Concerns Infection Onset Date Last Indicated Resolved Time CoV-Risk 03/16/2024 03/16/2024 03/27/2024 2:34 AM EST documented as of this encounter Care Teams Event Marketing Intern Relationship Specialty Start Date End Date Michi Soria NP 73 [facility] [place] [address] [email or web address] PCP - General Family Medicine 12/17/19 04/01/22 Joe Reinoso DO [address] [place] [address] 20 [place] [address] [email or web address] PCP - General Internal Medicine 04/02/22 02/05/23 Sejal Ngo MD [address] [place] [address] [email or web address] PCP - General Family Medicine 02/06/23 documented as of this encounter Additional Source Comments The information contained in this document represents components of the legal health record. It is not the complete legal health record.[facility]
--- OUTSIDE RECORDS SUMMARY | 2025-02-17 07:48 | XMS_ITS | Encounter Summary ---
Author Organization [employer] Address [address] [place] [address] 7 [place] [address] Care Team Providers Care Director Medical Economics Name Role Phone Lacie Valle PA-C Primary [...] on filedocumented in this encounter Care Teams Director Medical Economics Relationship Specialty Start Date End Date Lacie Valle PA-C PCP - General Family Medicine 06/03/22 11/14/24 Thor Garciassfunmilayo PCP - General Family Medicine 11/15/24 01/23/25 documented as of this encounter
--- OUTSIDE RECORDS SUMMARY | 2025-02-17 07:48 | XMS_ITS | Encounter Summary ---
Author Organization [facility] Address [address] [facility] [address] [place] [address] Phone Care Team Providers Care Vessel Master Name Role Phone Joe Reinoso DO Primary Care Provider [phone] Sejal Ngo MD Primary Care Provider + Encounter Details Date Type Department Care Team (Late st Contact Info) Description 10/08/2022 Transcribe Orders Virtual Department 30 [place] [address] Radha Bolden PA [address] [place] [address] [email or web address] Pelvic and perineal pain (Primary Dx) Social [...] Pass OR Admitting Dept - Virtual Department [address] [place] [address] 04/24/2025 7:30 AM EST Hospital Encounter OR Admitting Dept - Virtual Department [address] [place] [address] Loida Riggs MD [address] [place] [address] [email or web address] 04/24/2025 7:30 AM EST - 04/24/2025 9:10 AM EST Surgery OR Admitting Dept - Virtual Department [address] [place] [address] Loida Riggs MD [address] [place] [address] [email or web address] LAPAROSCOPIC CHOLECYSTECTOMY 04/28/2025 10:15 AM EST Office Visit [facility]ology, All[facility] [address] [place] [address] Bradley Philip MD, MS [address] [place] [address] [email or web address] Scheduled Procedures Name Priority Associated [...] No other potential cause for pain identified. Radha LR IMG US PELVIS Final Re sult documented in this encounter Visit Diagnoses Diagnosis Pelvic and perineal pain- Primary Pelvic and perineal pain Calculus of gallbladder without cholecystitis without obstruction documented in this encounter Additional Health Concerns Infection Onset Date Last Indicated Resolved Time CoV-Risk 03/16/2024 03/16/2024 03/27/2024 2:34 AM EST documented as of this encounter Care Teams Vessel Master Relationship Specialty Start Date End Date Joe Reinoso DO [address] [place] [address] [address] [place] [address] [email or web address] PCP - General Internal Medicine 04/02/22 02/05/23 Sejal Ngo MD [address] [place] [address] [email or web address] PCP - General Family Medicine 02/06/23 documented as of this encounter Additional Source Comments The information contained in this document represents components of the legal health record. It is not the complete legal health record.[facility]
--- OUTSIDE RECORDS SUMMARY | 2025-02-17 07:48 | XMS_ITS | Encounter Summary ---
Author Organization [facility] Address [address] [place] [address] [place] [address] Phone Care Team Providers Care Instrumentation Supervisor Name Role Phone Michi Soria NP Primary Care Provider [phone] Joe Reinoso DO Primary Care Provider [phone] Sejal Ngo MD Primary Care Provider + Encounter Details Date Type Department Care Team (Latest Contact Info) Description 03/17/2022 Transcribe Orders Virtual Department [address] [place] [address] Joe Reinoso DO [address] [place] [address] [address] [place], [place] [phone] [email or web address] Right shoulder pain, unspecified chronicity [...] Pass OR Admitting Dept - Virtual Department [address] [place] [address] 04/24/2025 7:30 AM EST Hospital Encounter OR Admitting Dept - Virtual Department [address] [place] [address] Loida Riggs MD [address] [place] [address] [email or web address] 04/24/2025 7:30 AM EST - 04/24/2025 9:10 AM EST Surgery OR Admitting Dept - Virtual Department [address] [place] [address] Loida Riggs MD [address] [place] [address] [email or web address] LAPAROSCOPIC CHOLECYSTECTOMY 04/28/2025 10:15 AM EST Office Visit [facility] Pulmonology, Allergy and Critical Care Medicine Clinic [address] [place] [address] Bradley Philip MD, MS [address] [place] [address] [email or web address] Scheduled Procedures Name Priority Associated Diagnoses Date/Ti me LAPAROSCOPIC CHOLECYSTECTOMY Calculus of gallbladder without cholecystitis without obstruction 04/24/2025 7:30 AM EST documented as of this encounter Visit Diagnoses Diagnosis Right shoulder pain, unspecified chronicity- Primary Calculus of gallbladder without cholecystitis without obstruction documented in this encounter Additional Health Concerns Infection Onset Date Last Indicated Resolved Time CoV-Risk 03/16/2024 03/16/2024 03/27/2024 2:34 AM EST documented as of this encounter Care Teams Instrumentation Supervisor Relationship Specialty Start Date End Date Michi Soria NP [address] [place] [address] [email or web address] PCP - General Family Medicine 12/17/19 04/01/22 Joe Reinoso DO [address] [place] [phone] [email or web address] PCP - General Internal Medicine 04/02/22 02/05/23 Sejal Ngo MD [address] [place] [address] [email or web address] PCP - General Family Medicine 02/06/23 documented as of this encounter Additional Source Comments The information contained in this document represents components of the legal health record. It is not the complete legal health record.[facility]
--- OUTSIDE RECORDS SUMMARY | 2025-02-17 07:48 | XMS_ITS | Encounter Summary ---
Author Organization [facility] Address [address] [place] [address] Phone Care Team Providers Care Warehouse Distribution Manager Name Role Phone Michi Soria NP Primary Care Provider [phone] Joe Reinoso DO Primary Care Provider [phone] Sejal Ngo MD Primary Care Provider + Encounter Details Date Type Department Care Team (Latest Contact Info) Description 01/05/2020 Transcribe Orders Virtual Department 30 [place] [address] Connor Johansen MD [address] [place] [address] [email or web address] Pre-operative laboratory examination (Primary Dx) Social History [...] Pass OR Admitting Dept - Virtual Department [address] [place] [address] 04/24/2025 7:30 AM EST Hospital Encounter OR Admitting Dept - Virtual Department [address] [place] [address] Loida Riggs MD [address] [place] [address] [email or web address] 04/24/2025 7:30 AM EST - 04/24/2025 9:10 AM EST Surgery OR Admitting Dept - Virtual Department [address] [place] [address] Loida Riggs MD [address] [place] [address] [email or web address] LAPAROSCOPIC CHOLECYSTECTOMY 04/28/2025 10:15 AM EST Office Visit [facility] Pulmonology, Allergy and Critical Care Medicine Clinic [address] [place] [address] Bradley Philip MD, MS [address] [place] [address] [email or web address] Scheduled Procedures Name Priority Associated Diagnoses Date/Ti nc LAPAROSCOPIC CHOLECYSTECTOMY Calculus of gallbladder without cholecystitis without obstruction 04/24/2025 7:30 AM EST documented as of this encounter Results * COVID-19 PCR Order (01/09/2020 6:45 AM EST) Specimen Source NASOPHARYNGEAL SWAB (ADZING AND BORING MACHINE OPERATOR) [facility] COVID-19 Comment [id number] [facility] COVID Testing Status Sent to [facility] Other 01/09/2020 6:45 AM EST 01/09/2020 12:54 PM EST us Connor Johansen MD LAB GENERAL ORDERABLES Final R esult [address] [place] [address] documented in this encounter Visit Diagnoses Diagnosis Pre-operative laboratory examination- Primary Pre-procedural laboratory examination Calculus of gallbladder without cholecystitis without obstruction documented in this encounter Additional Health Concerns Infection Onset Date Last Indicated Resolved Time CoV-Risk 03/16/2024 03/16/2024 03/27/2024 2:34 AM EST documented as of this encounter Care Teams Warehouse Distribution Manager Relationship Specialty Start Date End Date Michi Soria NP [address] [place] [address] [email or web address] PCP - General Family Medicine 12/17/19 04/01/22 Joe Reinoso DO [address] [place] [address] [address] [place] [address] [email or web address] PCP - General Internal Medicine 04/02/22 02/05/23 Sejal Ngo MD [address] [place] [address] [email or web address] PCP - General Family Medicine 02/06/23 documented as of this encounter Additional Source Comments The information contained in this document represents components of the legal health record. It is not the complete legal health record.[facility]
--- OUTSIDE RECORDS SUMMARY | 2025-02-17 07:48 | XMS_ITS | Encounter Summary ---
Author Organization [employer] Address [address] [place] [address] 7 [place] [address] Care Team Providers Care Supervisor Cartography Name Role Phone Lacie Valle PA-C Primary [...] on filedocumented in this encounter Care Teams Supervisor Cartography Relationship Specialty Start Date End Date Lacie Valle PA-C PCP - General Family Medicine 06/03/22 11/14/24 Thor Garciassfunmilayo PCP - General Family Medicine 11/15/24 01/23/25 documented as of this encounter
--- OUTSIDE RECORDS SUMMARY | 2025-02-17 07:48 | XMS_ITS | Clinical Summary ---
Author Organization [email or web address] Address [address] [place] [address] 7t [place] [address] Care Team Providers Care Nurse Monitoring Name Role Phone Unavailable Primary Care Provider Unavailabl e Allergies No known active allergies Medications citalopram [...] diagnosed with Cancer of lung Paternal Grandfather Dar l Grandfather: , [place]?, diagnosed with Coronary artery disease (CAD) Social History Tobacco Use Types Packs/Day Years Used Date Smoking Tobacco: Former Cigarettes Q uit: 2003 Pipe Smokeless Tobacco: Never Tobacco Cessation:Counseling Given: [...] Insurance DENTAL - [place]
--- OUTSIDE RECORDS SUMMARY | 2025-02-17 07:48 | XMS_ITS | Encounter Summary ---
Author Organization [facility] Address [address] [place] [address] [place] [address] Phone Care Team Providers Care Tie Inspector Name Role Phone Michi Soria NP Primary Care Provider [phone] Joe Reinoso DO Primary Care Provider [phone] Sejal Ngo MD Primary Care Provider + Encounter Details Date Type Department Care Team (Late st Contact Info) Description 12/16/2021 Procedure Pass [address] [address] Social History Tobacco Use Types Packs/Day Years [...] Pass OR Admitting Dept - Virtual Department [address] [place] [address] 04/24/2025 7:30 AM [facility] Hospital Encounter OR Admitting Dept - Virtual Department [address] [place] [address] Loida Riggs MD [address] [place] [address] [email or web address] 04/24/2025 7:30 AM EST - 04/24/2025 9:10 AM EST Surgery OR Admitting Dept - Virtual Department [address] [place] [address] Loida Riggs MD [address] [place] [address] [email or web address] LAPAROSCOPIC CHOLECYSTECTOMY 04/28/2025 10:15 AM EST Office Visit [facility] Pulmonology, Allergy and [facility] Medicine Clinic [address] [place] [address] Bradley Philip MD, [place] [address] [place] [address] [email or web address] Scheduled Procedures Name Priority Associated Diagnoses Date/Ti me LAPAROSCOPIC CHOLECYSTECTOMY Calculus of gallbladder without cholecystitis without obstruction 04/24/2025 7:30 AM EST documented as of this encounter Visit Diagnoses Not on filedocumented in this encounter Additional Health Concerns Infection Onset Date Last Indicated Resolved Time CoV-Risk 03/16/2024 03/16/2024 03/27/2024 2:34 AM EST documented as of this encounter Care Teams Tie Inspector Relationship Specialty Start Date End Date Michi Soria NP [address] [place] [address] [email or web address] PCP - General Family Medicine 12/17/19 04/01/22 Joe Reinoso DO [address] [place] [phone] [email or web address] PCP - General Internal Medicine 04/02/22 02/05/23 Sejal Ngo MD [address] [place] [address] [email or web address] PCP - General Family Medicine 02/06/23 documented as of this encounter Additional Source Comments The information contained in this document represents components of the legal health record. It is not the complete legal health record.[facility]
--- OUTSIDE RECORDS SUMMARY | 2025-02-17 07:48 | XMS_ITS | Encounter Summary ---
Author Organization [facility] Address [address] [place] [address] Phone Care Team Providers Care Trench Digger Helper Name Role Phone Joe Reinoso DO Primary Care Provider [phone] Sejal Ngo MD Primary Care Provider + Encounter Details Date Type Department Care Team (Latest Contact Info) Description 08/13/2022 Transcribe Orders Virtual Department [address] [place] [address] Bigg Sanchez DO, MPH [address] [place] [address] [email or web address] Breast screening (Primary Dx) Social History Tobacco [...] Pass OR Admitting Dept - Virtual Department [address] [place] [address] 04/24/2025 7:30 AM EST Hospital Encounter OR Admitting Dept - Virtual Department [address] [place] [address] Loida Riggs MD [address] [place] [address] [email or web address] 04/24/2025 7:30 AM EST - 04/24/2025 9:10 AM EST Surgery OR Admitting Dept - Virtual Department [address] [place] [address] Loida Riggs MD [address] [place] [address] [email or web address] LAPAROSCOPIC CHOLECYSTECTOMY 04/28/2025 10:15 AM EST Office Visit [facility] Pulmonology, Allergy and Critical Care Medicine Clinic [address] [place] [address] Bradley Philip MD, MS [address] [place] [address] [email or web address] Scheduled Procedures Name Priority Associated Diagnoses Date/Ti [...] screening, unspecified Breast screening Breast screening, unspecified Calculus of gallbladder without cholecystitis without obstruction documented in this encounter Additional Health Concerns Infection Onset Date Last Indicated Resolved Time CoV-Risk 03/16/2024 03/16/2024 03/27/2024 2:3 4 AM EST documented as of this encounter Care Teams Trench Digger Helper Relationship Specialty Start Date End Date Joe Reinoso DO [address] [place] [address] 20 [place] [phone] [email or web address] PCP - General Internal Medicine 04/02/22 02/05/23 Sejal Ngo MD [address] [place] [address] [email or web address] PCP - General Family Medicine 02/06/23 documented as of this encounter Additional Source Comments The information contained in this document represents components of the legal health record. It is not the complete legal health record.[facility]
--- OUTSIDE RECORDS SUMMARY | 2025-02-17 07:48 | XMS_ITS | Encounter Summary ---
Author Organization [facility] Address [address] [place] [address] [place] [address] Phone Care Team Providers Care Sleep Lab Technician Name Role Phone Michi Soria NP Primary Care Provider [phone] Joe Reinoso DO Primary Care Provider Sejal Ngo MD Primary Care Provider + Encounter Details Date Type Department Care Team (Late st Contact Info) Description 03/19/2022 Procedure Pass [facility], Ct Scan - [address] [address] Social History Tobacco Use Types Packs/Day Years [...] Pass OR Admitting Dept - Virtual Department [address] [place] [address] 04/24/2025 7:30 AM [facility] Hospital Encounter OR Admitting Dept - Virtual Department [address] [place] [address] Loida Riggs MD [address] [place] [address] [email or web address] 04/24/2025 7:30 AM EST - 04/24/2025 9:10 AM EST Surgery OR Admitting Dept - Virtual Department [address] [place] [address] Loida Riggs MD [address] [place] [address] [email or web address] LAPAROSCOPIC CHOLECYSTECTOMY 04/28/2025 10:15 AM EST Office Visit [facility] Pulmonology, Allergy and Critical [facility] Medicine Clinic [address] [place] [address] Bradley Philip MD, MS [address] [place] [address] [email or web address] Scheduled Procedures Name Priority Associated Diagnoses Date/Ti me LAPAROSCOPIC CHOLECYSTECTOMY Calculus of gallbladder without cholecystitis without obstruction 04/24/2025 7:30 AM EST documented as of this encounter Visit Diagnoses Not on filedocumented in this encounter Additional Health Concerns Infection Onset Date Last Indicated Resolved Time CoV-Risk 03/16/2024 03/16/2024 03/27/2024 2:34 AM EST documented as of this encounter Care Teams Sleep Lab Technician Relationship Specialty Start Date End Date Michi Soria NP [address] [place] [address] [email or web address] PCP - General Family Medicine 12/17/19 04/01/22 Joe Reinoso DO [address] [place] [phone] [email or web address] PCP - General Internal Medicine 04/02/22 02/05/23 Sejal Ngo MD [address] [place] [address] [email or web address] PCP - General Family Medicine 02/06/23 documented as of this encounter Additional Source Comments The information contained in this document represents components of the legal health record. It is not the complete legal health record.[facility]
--- OUTSIDE RECORDS SUMMARY | 2025-02-17 07:48 | XMS_ITS | Encounter Summary ---
Author Organization [facility] Address [address] [place] [address] [place] [address] Phone Care Team Providers Care Vacuum Truck Driver Name Role Phone Fior Carney MD Primary Care Provider Michi Soria NP Primary Care Provider [phone] Joe Reinoso DO Primary Care Provider [phone] Sejal Ngo MD Primary Care Provider + Encounter Details Date Type Department Care Team (Latest Contact Info) Description 12/01/2019 Transcribe Orders Virtual Department 30 [place] [address] Fior Carney MD [address] [place] [address] SOB (shortness of breath) (Primary Dx) Social [...] OR Admitting Dept - Virtual Department [address] [place] [address] 04/24/2025 7:30 AM EST Hospital Encounter OR Admitting Dept - Virtual Department [address] [place] [address] Loida Riggs MD [address] [place] [address] [email or web address] 04/24/2025 7:30 AM EST - 04/24/2025 9:10 AM EST Surgery OR Admitting Dept - Virtual Department [address] [place] [address] Loida Riggs MD [address] [place] [address] [email or web address] LAPAROSCOPIC CHOLECYSTECTOMY 04/28/2025 10:15 AM EST Office Visit [facility] Pulmonology, Allergy and Critical Care Medicine Clinic [address] [place] [address] Bradley Philip MD, MS [address] [place] [address] [email or web address] Scheduled Procedures Name Priority Associated Diagnoses Date/Ti ne LAPAROSCOPIC CHOLECYSTECTOMY Calculus of gallbladder without cholecystitis [...] SOB (shortness of breath) Shortness of breath Calculus of gallbladder without cholecystitis without obstruction documented in this encounter Additional Health Concerns Infection Onset Date Last Indicated Resolved Time CoV-Risk 03/16/2024 03/16/2024 03/27/2024 2:34 AM EST documented as of this encounter Care Teams Vacuum Truck Driver Relationship Specialty Start Date End Date Fior Carney MD PCP - General Family Medicine 10/13/19 12/16/19 Michi Soria NP [address] [place] [address] [email or web address] PCP - General Family Medicine 12/17/19 04/01/22 Joe Reinoso DO [address] [facility] 20 [place] [phone] [email or web address] PCP - General Internal Medicine 04/02/22 02/05/23 Sejal Ngo MD [address] [place] [address] [email or web address] PCP - General Family Medicine 02/06/23 documented as of this encounter Additional Source Comments The information contained in this document represents components of the legal health record. It is not the complete legal health record.[facility]
--- OUTSIDE RECORDS SUMMARY | 2025-02-17 07:48 | XMS_ITS | Encounter Summary ---
Author Organization [facility] Address [address] [place] [address] Phone Care Team Providers Care Academic Interventionist Name Role Phone Joe Reinoso DO Primary Care Provider [phone] Sejal Ngo MD Primary Care Provider + Encounter Details Date Type Department Care Team (Late st Contact Info) Description 08/13/2022 Procedure Pass [facility] [address] [place] [address] Social History Tobacco Use Types Packs/Day Years [...] Pass OR Admitting Dept - Virtual Department [address] [place] [address] 04/24/2025 7:30 AM EST Hospital Encounter OR Admitting Dept - Virtual Department [address] [place] [address] Loida Riggs MD [address] [place] [address] [email or web address] 04/24/2025 7:30 AM EST - 04/24/2025 9:10 AM EST Surgery OR Admitting Dept - Virtual Department [address] [place] [address] Loida Riggs MD [address] [place] [address] [email or web address] LAPAROSCOPIC CHOLECYSTECTOMY 04/28/2025 10:15 AM EST Office Visit [facility] Pulmonology, Allergy and Critical Care Medicine Clinic [address] [place] [address] Bradley Philip MD, MS [address] [address] [email or web address] Scheduled Procedures Name Priority Associated Diagnoses Date/Ti me LAPAROSCOPIC CHOLECYSTECTOMY Calculus of gallbladder without cholecystitis without obstruction 04/24/2025 7:30 AM EST documented as of this encounter Visit Diagnoses Not on filedocumented in this encounter Additional Health Concerns Infection Onset Date Last Indicated Resolved Time CoV-Risk 03/16/2024 03/16/2024 03/27/2024 2:34 AM EST documented as of this encounter Care Teams Academic Interventionist Relationship Specialty Start Date End Date Joe Reinoso DO [address] [place] [phone] PCP - General Internal Medicine 04/02/22 02/05/23 Sejal Ngo MD [address] [place], [place] [phone] [email or web address] PCP - General Family Medicine 02/06/23 documented as of this encounter Additional Source Comments The information contained in this document represents components of the legal health record. It is not the complete legal health record.[facility]
--- OUTSIDE RECORDS SUMMARY | 2025-02-17 07:48 | XMS_ITS | Encounter Summary ---
Author Organization [facility] Address [address] [facility] [address] [place] [address] Phone Care Team Providers Care Weigh Boss Name Role Phone Sejal Ngo MD Primary Care Provider + Reason for Referral * Consultation (Elective) - New Request Specialty Diagnoses / Procedures Referred By Star nolan Referred To Contact General Surgery Sejal Ngo MD [address] [place] [address] Phone: tel: fax: mailto:[email or web address] [email or web address] 30 [place] [address] Phone: tel: Referral ID Status Reason Start Date Expiration Date V isits Requested Visits Authorized [id number] New Request 01/17/2025 01/18/2026 1 1 Encounter Details Date Type Department Care Team (Late st Contact Info) Description 01/17/2025 Community Orders PHYSICIAN [facility] Sejal Ngo MD [address] [place] [address] [email or web address] Social History Tobacco Use Types Packs/Day Years [...] Pass OR Admitting Dept - Virtual Department [address] [place] [address] 04/24/2025 7:30 AM EST Hospital Encounter OR Admitting Dept - Virtual Department [address] [place] [address] Loida Riggs MD [address] [place] [address], [address] [place] [address] [email or web address] 04/24/2025 7:30 AM EST - 04/24/2025 9:10 AM EST Surgery OR Admitting Dept - Virtual Department [address] [place] [address] Loida Riggs MD [address] [facility], [address] [place] [address] [email or web address] LAPAROSCOPIC CHOLECYSTECTOMY 04/28/2025 10:15 AM EST Office Visit [facility] Pulmonology, Allergy and Critical Care Medicine Clinic [address] [place] [address] Bradley Philip MD, MS [address] [place] [address] [email or web address] Scheduled Procedures Name Priority Associated Diagnoses Date/Ti hi LAPAROSCOPIC CHOLECYSTECTOMY Calculus of gallbladder without cholecystitis without obstruction 04/24/2025 7:30 AM EST Scheduled Referrals Name Type Priority Associated Diagnoses Order Schedule Ambulatory referral to [facility] General Surgery Outpatient Referral Routine Ordered: 01/17/2025 documented as of this encounter Visit Diagnoses Not on filedocumented in this encounter Care Teams Weigh Boss Relationship Specialty Start Date End Date Sejal Ngo MD [address] [place] [address] [email or web address] PCP - General Family Medicine 02/06/23 documented as of this encounter Additional Source Comments The information contained in this document represents components of the legal health record. It is not the complete legal health record.[facility]
--- OUTSIDE RECORDS SUMMARY | 2025-02-17 07:48 | XMS_ITS | Encounter Summary ---
Author Organization [facility] Address [address] [place] [address] [place] [address] Phone Care Team Providers Care Securities Research Analyst Name Role Phone Michi Soria NP Primary Care Provider [phone] Joe Reinoso DO Primary Care Provider [phone] Sejal Ngo MD Primary Care Provider + Reason for Referral * MRI/CAT Scan - Closed Specialty Diagnoses / Procedures Referred By Contac t Referred To Contact Radiology Diagnoses Pulsatile tinnitus of right ear Procedures CT Temporal Bones (IAC/Posterior Fossa) CT Orbits CHG CT SCAN,ORBIT/SELLA/POST FOSSA/EAR,W/O Alexandra Nelson PA-C Phone: tel: fax: mailto:[email or web address] Referral ID Status Reason Start Date Expiration Date Visits Re quested Visits Authorized [id number] Closed 03/07/2022 05/06/2022 1 1 Encounter Details Date Type Department Care Team (Late st Contact Info) Description 03/19/2022 Transcribe Orders Virtual Department 30 [place] [address] Alexandra Nelson PA-C [address] [place] [address] [email or web address] Pulsatile tinnitus of right ear (Primary Dx) [...] Pass OR Admitting Dept - Virtual Department [address] [place] [address] 04/24/2025 7:30 AM EST Hospital Encounter OR Admitting Dept - Virtual Department [address] [place] [address] Loida Riggs MD [address] [place] [address] [email or web address] 04/24/2025 7:30 AM EST - 04/24/2025 9:10 AM EST Surgery OR Admitting Dept - Virtual Department [address] [place] [address] Loida Riggs MD [address] [place] [address] [email or web address] LAPAROSCOPIC CHOLECYSTECTOMY 04/28/2025 10:15 AM EST Office Visit [facility] Pulmonology, Allergy and Critical Care Medicine Clinic [address] [place] [address] Bradley Philip MD, MS [address] [address] [email or web address] Scheduled Procedures Name Priority Associated Diagnoses Date/Ti [...] pulsatile tinnitusidentified by CT. Alexandra Nelson PA-C IMG CT HEAD/NECK Final R esult documented in this encounter Visit Diagnoses Diagnosis Pulsatile tinnitus of right ear- Primary Pulsatile tinnitus of right ear Calculus of gallbladder without cholecystitis without obstruction documented in this encounter Additional Health Concerns Infection Onset Date Last Indicated Resolved Time CoV-Risk 03/16/2024 03/16/2024 03/27/2024 2:34 AM EST documented as of this encounter Care Teams Securities Research Analyst Relationship Specialty Start Date End Date Michi Soria NP [address] [place] [address] [email or web address] PCP - General Family Medicine 12/17/19 04/01/22 Joe Reinoso DO [address] [facility] 20 [place] [phone] [email or web address] PCP - General Internal Medicine 04/02/22 02/05/23 Sejal Ngo MD [address] [place] [address] [email or web address] PCP - General Family Medicine 02/06/23 documented as of this encounter Additional Source Comments The information contained in this document represents components of the legal health record. It is not the complete legal health record.[facility]
--- OUTSIDE RECORDS SUMMARY | 2025-02-17 07:48 | XMS_ITS | Encounter Summary ---
Author Organization [facility] Address [address] [place] [address] Phone Care Team Providers Care Correctional Cook Name Role Phone Michi Soria NP Primary Care Provider [phone] Joe Reinoso DO Primary Care Provider [phone] Sejal Ngo MD Primary Care Provider + Reason for Referral * MRI/CAT Scan - Closed Specialty Diagnoses / Procedures Referred By Contac t Referred To Contact Radiology Diagnoses Pulsatile tinnitus of right ear Sensorineural hearing loss (SNHL), unspecified laterality Procedures MRI Brain CHG MRI BRAIN COMBO Alexandra Nelson PA-C Phone: tel: fax: mailto:[email or web address] Referral ID Status Reason Start Date Expiration Date Visits Re quested Visits Authorized [id number] Closed 12/09/2021 02/07/2022 1 1 Encounter Details Date Type Department Care Team (Late st Contact Info) Description 12/12/2021 Transcribe Orders Virtual Department 30 [place] [address] Alexandra Nelson PA-C [address] [place] [address] Pulsatile tinnitus of right ear (Primary Dx); [...] Pass OR Admitting Dept - Virtual Department [address] [place] [address] 04/24/2025 7:30 AM EST Hospital Encounter OR Admitting Dept - Virtual Department [address] [place] [address] Loida Riggs MD [address] [place] [address] [email or web address] 04/24/2025 7:30 AM EST - 04/24/2025 9:10 AM EST Surgery OR Admitting Dept - Virtual Department [address] [place] [address] Loida Riggs MD [address] [place] [address] [email or web address] LAPAROSCOPIC CHOLECYSTECTOMY 04/28/2025 10:15 AM EST Office Visit [facility] Pulmonology, Allergy and Critical Care Medicine Clinic [address] [place] [address] Bradley Philip MD, MS [address] [address] Scheduled Procedures Name Priority Associated Diagnoses Date/Ti ks LAPAROSCOPIC CHOLECYSTECTOMY Calculus of gallbladder without cholecystitis [...] head was performed without intravenous gadolinium, using [id number] technique. COMPARISON: None FINDINGS: MRI BRAIN AND [...] the head was performed withoutintravenous gadolinium, using [id number] technique. COMPARISON: None FINDINGS: MRI BRAIN AND [...] documented as of this encounter Care Teams Correctional Cook Relationship Specialty Start Date End Date Michi Soria NP [address] [place] [address] [email or web address] PCP - General Family Medicine 12/17/19 04/01/22 Joe Reinoso DO [address] [facility] 20 [place] [address] [email or web address] PCP - General Internal Medicine 04/02/22 02/05/23 Sejal Ngo MD [address] [place] [address] PCP - General Family Medicine 02/06/23 documented as of this encounter Additional Source Comments The information contained in this document represents components of the legal health record. It is not the complete legal health record.[facility]
--- OUTSIDE RECORDS SUMMARY | 2025-02-17 07:48 | XMS_ITS | Encounter Summary ---
Author Organization [facility] Address [address] [place] [address] [place] [address] Phone Care Team Providers Care Director Pharmacovigilance Name Role Phone Michi Soria NP Primary Care Provider [phone] Joe Rienoso DO Primary Care Provider [phone] Sejal Ngo MD Primary Care Provider + Encounter Details Date Type Department Care Team (Late st Contact Info) Description 02/24/2021 Procedure Pass [facility], Ct Scan - [address] [address] Social History Tobacco Use Types Packs/Day Years [...] Pass OR Admitting Dept - Virtual Department [address] [place] [address] 04/24/2025 7:30 AM [facility] Hospital Encounter OR Admitting Dept - Virtual Department [address] [place] [address] Loida Riggs MD [address] [place] [address] [email or web address] 04/24/2025 7:30 AM EST - 04/24/2025 9:10 AM EST Surgery OR Admitting Dept - Virtual Department [address] [place] [address] Loida Riggs MD [address] [place] [address] [email or web address] LAPAROSCOPIC CHOLECYSTECTOMY 04/28/2025 10:15 AM EST Office Visit [facility] Pulmonology, Allergy and Critical Care Medicine Clinic [address] [place] [address] Bradley Philip MD, MS [address] [place] [address] [email or web address] Scheduled Procedures Name Priority Associated Diagnoses Date/Ti me LAPAROSCOPIC CHOLECYSTECTOMY Calculus of gallbladder without cholecystitis without obstruction 04/24/2025 7:30 AM EST documented as of this encounter Visit Diagnoses Not on filedocumented in this encounter Additional Health Concerns Infection Onset Date Last Indicated Resolved Time CoV-Risk 03/16/2024 03/16/2024 03/27/2024 2:34 AM EST documented as of this encounter Care Teams Director Pharmacovigilance Relationship Specialty Start Date End Date Michi Soria NP [address] [place] [address] [email or web address] PCP - General Family Medicine 12/17/19 04/01/22 Joe Reinoso DO [address] [place] [phone] [email or web address] PCP - General Internal Medicine 04/02/22 02/05/23 Sejal Ngo MD [address] [place] [address] [email or web address] PCP - General Family Medicine 02/06/23 documented as of this encounter Additional Source Comments The information contained in this document represents components of the legal health record. It is not the complete legal health record.[facility]
--- OUTSIDE RECORDS SUMMARY | 2025-02-17 07:49 | XMS_ITS | Clinical Summary ---
Author Organization [facility] Address [address] [place] [address] Phone Care Team Providers Care Circuit Rider Name Role Phone Sejal Ngo MD Primary Care Provider + Allergies No known active allergies Medications levonorgestreL (MIRENA) 20 mcg/24 hours (7 yrs) 52 mg intrauterine device 1 Device by Intrauterine route once. Inserted 05/22/17 Active atorvastatin (LIPITOR) 10 MG tablet Take 10 mg by mouth daily. Active cholecalciferol (VITAMIN D3) 400 unit tablet Take 400 Units by mouth daily. Active citalopram (CELEXA) 20 MG tablet Take 20 mg by mouth daily. Active ALPRAZolam (XANAX) 0.5 MG tablet Take 1 tablet by mouth 2 (two) times a day. Active famotidine (PEPCID) 40 MG tablet Take 1 tablet by mouth daily. Active albuterol 90 mcg/actuation inhaler INHALE 1 PUFF EVERY 4 HOURS NEEDED 12/16/19 25 Active SYMBICORT 80-4.5 mcg/actuation inhaler Inhale 2 puffs into the lungs 2 (two) times a day. 01/14/20 25 Active mecobalamin, vitamin B12, 5,000 mcg ODT disintegrating tablet mecobalamin (vitamin B12) 5,000 mcg disintegrating tablet Take 1 tablet every day by oral route. start daily x 30 days then every other day Active omeprazole (PRILOSEC) 20 MG tablet Take 20 mg by mouth daily. Active nystatin ointment Apply topically 2 (two) times a day. 30 g 06/27/19 22 025 Disconti nued(No longer taking) triamcinolone acetonide 0.1 % ointment Apply topically 2 (two) times a day. Thin film for up to 4 weeks, can then use prn 30 g 06/27/19 22 025 Disconti nued(No longer taking) dicyclomine (BENTYL) 10 MG capsule Take 1 capsule (10 mg total) by mouth 4 (four) times a day before meals and nightly. 20 capsule 03/16/19 25 025 Disconti nued(No longer taking) metoclopramide HCl (REGLAN) 10 MG tablet Take 1 tablet (10 mg total) by mouth 3 (three) times a day as needed for nausea. 10 tablet 03/16/19 25 025 Disconti nued(No longer taking) Active Problems Problem Noted Date Diagnosed Date Calculus of gallbladder with out cholecystitis without obstruction 02/13/2025 Assessment & Plan (02/13/2025 10:59 AM EST): This is a 44-year-old woman who appears to be having biliary colic. She has ultrasound that shows gallstones without evidence of cholecystitis. All LFTs are within normal limits. I discussed laparoscopic cholecystectomy in detail including risk benefits and alternatives and answered all the patient's questions to her satisfaction. She was told she must avoid all heavy lifting greater than 5 to 10 pounds for the first 2 weeks after surgery and greater than 15 pounds for another 2 weeks equal 4 weeks of lifting restrictions. We will follow-up with her 2 weeks following the procedure. The patient does not need any further preoperative workup and does not need to stop any specific medications prior to surgery. Abnormal uterine bleeding 03/11/2023 Overview (03/11/2023): Every [...] Encounters Date Type Department Care Team Description 02/13/2025 10:30 AM EST Office Visit [facility] General Surgery Clinic [address] [place] [address] Loida Riggs MD Calculus of gallbladder without cholecystitis without obstruction (Primary Dx) 01/17/2025 Community Orders PHYSICIAN [facility] Sejal Ngo MD 11/28/2024 Transcribe Orders [facility] Pulmonology, Allergy and Critical Care Medicine Clinic [address] [place] [address] Dali Lorenzo PA from Last 3 Months Immunizations Immunization Administration Dates Next Due COVID-19 (Pre-12/15) Pfizer Vaccine, mRNA, PF Influenza Split (Incl. 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 Not on file No t on file Last Filed Vital Signs Vital Sign Reading Time Taken Comments Blood Pressure 120/74 02/13/2025 10:26 AM EST Pulse 73 02/13/2025 10:26 AM EST Temperature 36.7 C (98 F) 02/13/2025 10:26 AM EST Respiratory Rate 20 03/16/2024 5:54 AM EST Oxygen Saturation 98% 02/13/2025 10:26 AM EST Inhaled Oxygen Concentration - - Weight 115.7 kg (255 lb) 02/13/2025 10:26 AM EST Height 167.6 cm (5' 5.98 ) 02/13/2025 10:[address] Body Mass Index 41.18 02/13/2025 10:26 AM EST Plan of Treatment Upcoming Encounters Date Type Department Care Team (Latest Contact Info) Description 04/24/2025 Procedure Pass OR Admitting Dept - Virtual Department [address] [place] [address] 04/24/2025 7:30 AM EST Hospital Encounter OR Admitting Dept - Virtual Department [address] [place] [address] Loida Riggs MD [address] [address] [email or web address] 04/24/2025 7:30 AM EST - 04/24/2025 9:10 AM EST Surgery OR Admitting Dept - Virtual Department [address] [place] [address] Loida Riggs MD [address] [address] [email or web address] LAPAROSCOPIC CHOLECYSTECTOMY 04/28/2025 10:15 AM EST Office Visit [facility] Pulmonology, Allergy and Critical Care Medicine Clinic [address] [place] [address] Bradley Philip MD, MS [address] [address] [email or web address] Scheduled Procedures Name Priority Associated Diagnoses Date/Ti me LAPAROSCOPIC CHOLECYSTECTOMY Calculus of gallbladder without cholecystitis without obstruction 04/24/2025 7:30 AM EST Health Maintenance Due Date Last Done Comments Adult Td,Tdap Booster 1980 DEPRESSION SCREENING 1993 HEPATITIS C SCREENING 11/23/1999 HIV ONE-TIME SCREENING (18-6 5 YEARS) 11/23/1999 PAP SMEAR 06/26/2024 06/26/2021, 05/30/2013 INFLUENZA VACCINE (#1) 2024 3, 01/13/2008 COVID-19 VACCINE (2024-2 6 season) 2024 11/21/2022, 06/09/2020, 05/17/2020 MAMMOGRAM 10/24/2024 10/24/2022 IUD 05/22/2025 05/22/2017 SMOKING Hx and SMOKELESS TOBACCO SCREENING 02/13/2026 02/13/2025 SCREENING FOR DIABETES 09/09/2026 4, 04/15/2022 HEPATITIS A VACCINES Aged Out No long [...] on patient's age to complete this topic Goals Goal Patient Goal Type Associated Problems Recent Progress Patient-Stated? Author Autogenerat ed Goal Care Plan Autogenerated Problem No Alexandra S[employer] Not on file Procedures Procedure [...] Negative. DENSITY: There are scattered fibroglandular densities. Bigg Sanchez DO, MPH IMG MG EXAMS Final Resu lt * Pap Smear (06/26/2021 12:00 AM EDT) 06/26/2021 06/27/2021 10: 35 AM EDT Narrative SEE NARRATIVE - 07/04/2021 1:42 PM EDT [address] [address] Web Marketing Analyst: Eve Gongora MD REIMBURSEMENT CONSULTANT Cytology Report FINAL DIAGNOSIS A. PAP SMEAR [...] 52, 56, 58, 59, 66, 68) by [employer] Onclarity HR-HPV analysis. Clinical correlation is advised. This HPV test was performed at [facility], [address] [place] [address]. This test has been FDA approved for SurePath cervical cytology specimens. The accuracy and precision of this test for all other specimen sources has been verified in the Cytopathology Laboratory of the [facility] and has not been cleared or approved by the U.S. Food and Drug Administration. Clinical correlation is advised. CLINICAL HISTORY Date of Last Menstrual Period: Not Provided Menstrual History: No LMP given Other Clinical Conditions: Screening Pap SPECIMEN SOURCE A: PAP SMEAR (SUREPATH) CE Patient Name: THERESA DE LA GARZA : 1980 (Age: 40) Sex: F Institution: [facility] Location: [facility] Date of Collection: 06/26/2021 Date of Reported: 07/04/2021 13:42 Results to: Amita Dominguez MD Amita Dominguez MD CYTOLOGY ORDERABLES Final Result SEE NARRATIVE from Last 3 Months or Most Recently Relevant to Health Maintenance Additional Health Concerns Active Problems Noted Date Diagnosed Date Autogenerated Problem 02/13/2025 [facility] [address] [place] [place] [address] [address] [place] [address] [facility] [address] [place] [address] [place] [address]O [facility] Care Teams Circuit Rider Relationship Specialty Start Date End Date Sejal Ngo MD [address] [place] [address] [email or web address] PCP - General Family Medicine 02/06/23 Additional Source Comments The information contained in this document represents components of the legal health record. It is not the complete legal health record.[facility]
--- OUTSIDE RECORDS SUMMARY | 2025-02-17 07:49 | XMS_ITS | Encounter Summary ---
Author Organization [facility] Address [address] [place] [address] Phone Care Team Providers Care Operations Executive Name Role Phone Joe Reinoso DO Primary Care Provider [phone] Sejal Ngo MD Primary Care Provider + Reason for Referral * MRI/CAT Scan - Closed Specialty Diagnoses / Procedures Referred By Star t Referred To Contact Radiology Diagnoses Palpitations Shortness of breath Procedures NC Myocardial Perfusion Exercise Multiple CHG MYOCARDIAL SPECT MULTIPLE STUDIES Joe Reinoso DO [address] [facility] [place] [address] Phone: tel: fax: mailto: Referral ID Status Reason Start Date Expiration Date Visits Re quested Visits Authorized [id number] Closed 04/17/2022 06/16/2022 4 4 Encounter Details Date Type Department Care Team (Latest Contact Info) Description 04/10/2022 Transcribe Orders Virtual Department [address] [place] [address] Joe Reinoso DO [address] [place] [address] [email or web address] Palpitations (Primary Dx) Social History Tobacco [...] Pass OR Admitting Dept - Virtual Department [address] [place] [address] 04/24/2025 7:30 AM EST Hospital Encounter OR Admitting Dept - Virtual Department [address] [place] [address] Loida Riggs MD [address] [place] [address] [email or web address] 04/24/2025 7:30 AM EST - 04/24/2025 9:10 AM EST Surgery OR Admitting Dept - Virtual Department [address] [place] [address] Loida Riggs MD [address] [place] [address] [email or web address] LAPAROSCOPIC CHOLECYSTECTOMY 04/28/2025 10:15 AM EST Office Visit [facility] Pulmonology, Allergy and Critical Care Medicine Clinic [address] [place] [address] Bradley Philip MD, MS [address] [place] [address] [email or web address] Scheduled Procedures Name Priority Associated Diagnoses Date/Ti [...] encounter Visit Diagnoses Diagnosis Palpitations- Primary Palpitations Calculus of gallbladder without cholecystitis without obstruction documented in this encounter Additional Health Concerns Infection Onset Date Last Indicated Resolved Time CoV-Risk 03/16/2024 03/16/2024 03/27/2024 2:34 AM EST documented as of this encounter Care Teams Operations Executive Relationship Specialty Start Date End Date Joe Reinoso DO [address] [place] [address] 20 [place] [address] [email or web address] PCP - General Internal Medicine 04/02/22 02/05/23 Sejal Ngo MD [address] [place] [address] [email or web address] PCP - General Family Medicine 02/06/23 documented as of this encounter Additional Source Comments The information contained in this document represents components of the legal health record. It is not the complete legal health record.[facility]
--- OUTSIDE RECORDS SUMMARY | 2025-02-17 07:49 | XMS_ITS | Encounter Summary ---
Author Organization [facility] Address [address] [place] [address] Phone Care Team Providers Care Mine Laborer Name Role Phone Cris Pelaez MD Primary Care Provider [phone] Tanika Dobbins CNP Primary Care Provider + Fior Carney MD Primary Care Provider Michi Soria NP Primary Care Provider [phone] Joe Reinoso DO Primary Care Provider [phone] Sejal Ngo MD Primary Care Provider + Encounter Details Date Type Department Care Team (Late st Contact Info) Description 05/12/2017 Ancillary Orders Virtual Department [address] [place] [address] Nely Ng MD [facility] [place] [address] [email or web address] Palpitations Social History Tobacco Use Types Packs/Day [...] OR Admitting Dept - Virtual Department [address] [place] [address] 04/24/2025 7:30 AM EST Hospital Encounter OR Admitting Dept - Virtual Department [address] [place] [address] Loida Riggs MD [address] [place] [address] [email or web address] 04/24/2025 7:30 AM EST - 04/24/2025 9:10 AM EST Surgery OR Admitting Dept - Virtual Department [address] [place] [address] Loida Riggs MD [address] [place] [address] [email or web address] LAPAROSCOPIC CHOLECYSTECTOMY 04/28/2025 10:15 AM EST Office Visit [facility] Pulmonology, Allergy and Critical Care Medicine Clinic [address] [place] [address] Bradley Philip MD, MS [address] [place] [address] [email or web address] Scheduled Procedures Name Priority Associated Diagnoses Date/Ti de LAPAROSCOPIC CHOLECYSTECTOMY Calculus of gallbladder without cholecystitis without obstruction 04/24/2025 7:30 AM EST documented as of this encounter Results * Holter Monitor 24 Hours (05/15/2017 9:46 AM EDT) Total Beats 113,099 [facility] Ventricular Ectopy Total Beats 0 [facility] Ventricular Ectopy Single Beats 0 [facility] Ventricular Pair 0 [facility] Ventricular Runs 0 [facility] Supraventricular Total Beats 8 [facility] Supraventricular Ectopic Single Beats 6 [facility] Supraventricular Pairs 1 [facility] Supraventricular Runs 0 [facility] Mean Heart Rate 85 BPM [facility] Maximum Heart Rate 130 BPM [facility] Minimum Heart Rate 54 BPM [facility] Longest RR 1.280 S [facility] Anatomical Region Laterality Modality Heart Other [...] of breath during NSR and sinus tachycardia. Nely Ng MD [facility] ORDER EFRAIN Final Result documented in this encounter Visit Diagnoses Diagnosis Palpitations Palpitations Calculus of gallbladder without cholecystitis without obstruction documented in this encounter Additional Health Concerns Infection Onset Date Last Indicated Resolved Time CoV-Risk 03/16/2024 03/16/2024 03/27/2024 2:34 AM EST documented as of this encounter Care Teams Mine Laborer Relationship Specialty Start Date End Date Cris Pelaez MD PCP - General 12/09/16 01/11/19 Tanika Dobbins CNP [address] [place] [address] [email or web address] PCP - General Family Medicine 01/12/19 10/12/19 Fior Carney MD [address] [place] [address] [email or web address] PCP - General Family Medicine 10/13/19 12/16/19 Michi Soria NP [address] [place], [place] [address]AYY [address] [email or web address] PCP - General Family Medicine 12/17/19 04/01/22 Joe Reinoso DO [address] [place] [address] [address] [place] [address] [email or web address] PCP - General Internal Medicine 04/02/22 02/05/23 Sejal Ngo MD [address] [place] [address] [email or web address] PCP - General Family Medicine 02/06/23 documented as of this encounter Additional Source Comments The information contained in this document represents components of the legal health record. It is not the complete legal health record.[facility]
--- OUTSIDE RECORDS SUMMARY | 2025-02-17 07:49 | XMS_ITS | Encounter Summary ---
Author Organization [facility] Address [address] [place] [address] Phone Care Team Providers Care Plastic Boat Patcher Name Role Phone Cris Pelaez MD Primary Care Provider [phone] Tanika Dobbins CNP Primary Care Provider + Fior Carney MD Primary Care Provider Michi Soria NP Primary Care Provider [phone] Joe Reinoso DO Primary Care Provider [phone] Sejal Ngo MD Primary Care Provider + Encounter Details Date Type Department Care Team (Late st Contact Info) Description 04/23/2017 Ancillary Orders [facility], X-Ray - [address] [address] Nely Ng MD [address] [place] [address] [email or web address] Shortness of breath Social History Tobacco [...] Pass OR Admitting Dept - Virtual Department [address] [place] [address] 04/24/2025 7:30 AM EST Hospital Encounter OR Admitting Dept - Virtual Department [address] [place] [address] Loida Riggs MD [address] [place] [address] [email or web address] 04/24/2025 7:30 AM EST - 04/24/2025 9:10 AM EST Surgery OR Admitting Dept - Virtual Department [address] [place] [address] Loida Riggs MD [address] [place] [address] [email or web address] LAPAROSCOPIC CHOLECYSTECTOMY 04/28/2025 10:15 AM EST Office Visit [facility] Pulmonology, Allergy and Critical Care Medicine Clinic [address] [place] [address] Bradley Philip MD, MS [address] [address] [email or web address] Scheduled Procedures Name Priority Associated Diagnoses Date/Ti mn LAPAROSCOPIC CHOLECYSTECTOMY Calculus of gallbladder without cholecystitis [...] No acute chest disease. POS - [id number] Nely Ng MD IMG XR CHEST Final Res ult documented in this encounter Visit Diagnoses Diagnosis Shortness of breath Shortness of breath Calculus of gallbladder without cholecystitis without obstruction documented in this encounter Additional Health Concerns Infection Onset Date Last Indicated Resolved Time CoV-Risk 03/16/2024 03/16/2024 03/27/2024 2:34 AM EST documented as of this encounter Care Teams Plastic Boat Patcher Relationship Specialty Start Date End Date Cris Pelaez MD [email or web address] PCP - General 12/09/16 01/11/19 Tanika Dobbins CNP [address] [place] [address] [email or web address] PCP - General Family Medicine 01/12/19 10/12/19 Fior Carney MD [address] [place] [address] [email or web address] PCP - General Family Medicine 10/13/19 12/16/19 Michi Soria NP [address] [place] [address] [email or web address] PCP - General Family Medicine 12/17/19 04/01/22 Joe Reinoso DO [address] [place] [phone] [email or web address] PCP - General Internal Medicine 04/02/22 02/05/23 Sejal Ngo MD [address] [place] [address] [email or web address] PCP - General Family Medicine 02/06/23 documented as of this encounter Additional Source Comments The information contained in this document represents components of the legal health record. It is not the complete legal health record.[facility]
--- OUTSIDE RECORDS SUMMARY | 2025-02-17 07:49 | XMS_ITS | Encounter Summary ---
Author Organization [facility] Address [address] [place] [address] Phone Care Team Providers Care Mechanical System Technician Name Role Phone Cris Pelaez MD Primary Care Provider [phone] Tanika Dobbins CNP Primary Care Provider + Fior Carney MD Primary Care Provider Michi Soria NP Primary Care Provider [phone] Joe Reinoso DO Primary Care Provider [phone] Sejal Ngo MD Primary Care Provider + Encounter Details Date Type Department Care Team (Latest Contact Info) Description 05/07/2017 Transcribe Orders Virtual Department [address] [place] [address] Nely Ng MD [address] [place] [address] [email or web address] Palpitations (Primary Dx) Social History Tobacco Use [...] OR Admitting Dept - Virtual Department [address] [place] [address] 04/24/2025 7:30 AM EST Hospital Encounter OR Admitting Dept - Virtual Department [address] [place] [address] Loida Riggs MD [address] [place] [address] [email or web address] 04/24/2025 7:30 AM EST - 04/24/2025 9:10 AM EST Surgery OR Admitting Dept - Virtual Department [address] [place] [address] Loida Riggs MD [address] [place] [address] [email or web address] LAPAROSCOPIC CHOLECYSTECTOMY 04/28/2025 10:15 AM EST Office Visit [facility] Pul[facility]ology[facility] [address] [place] [address] Bradley Philip MD, [place] [address] [address] [email or web address] Scheduled Procedures Name Priority Associated Diagnoses Date/Ti me LAPAROSCOPIC CHOLECYSTECTOMY Calculus of gallbladder without cholecystitis without obstruction 04/24/2025 7:30 AM EST documented as of this encounter Visit Diagnoses Diagnosis Palpitations- Primary Calculus of gallbladder without cholecystitis without obstruction documented in this encounter Additional Health Concerns Infection Onset Date Last Indicated Resolved Time CoV-Risk 03/16/2024 03/16/2024 03/27/2024 2:34 AM EST documented as of this encounter Care Teams Mechanical System Technician Relationship Specialty Start Date End Date Cris Pelaez MD PCP - General 12/09/16 01/11/19 Tanika Dobbins CNP [address] [place] [address] [email or web address] PCP - General Family Medicine 01/12/19 10/12/19 Fior Carney MD [address] [place] [address] [email or web address] PCP - General Family Medicine 10/13/19 12/16/19 Michi Soria NP [address] [place] [address] [email or web address] PCP - General Family Medicine 12/17/19 04/01/22 Joe Reinoso DO 245 [facility] 20 [place] [address] [email or web address] PCP - General Internal Medicine 04/02/22 02/05/23 Sejal Ngo MD [address] [place] [address] [email or web address] PCP - General Family Medicine 02/06/23 documented as of this encounter Additional Source Comments The information contained in this document represents components of the legal health record. It is not the complete legal health record.[facility]
--- OUTSIDE RECORDS SUMMARY | 2025-02-17 07:49 | XMS_ITS | Encounter Summary ---
Author Organization [facility] Address [address] [place] [address] Phone Care Team Providers Care [employer] Asc[employer] Consultant Name Role Phone Joe Reinoso DO Primary Care Provider [phone] Sejal Ngo MD Primary Care Provider + Reason for Referral * MRI/CAT Scan - Closed Specialty Diagnoses / Procedures Referred By Contac t Referred To Contact Radiology Diagnoses Palpitations Procedures NC Stress Result for Nuclear Stress Test Joe Reinoso DO [address] [place] [address] Phone: tel: fax: [email or web address] Referral ID Status Reason Start Date Expiration Date Visits Re quested Visits Authorized [id number] Closed 04/29/2022 06/16/2022 1 1 Encounter Details Date Type Department Care Team (Late st Contact Info) Description 04/29/2022 Ancillary Orders Guido Wooten Non-Invasic Cardiology [address] [place] [address] Joe Reinoso DO [address] [place], [place] [id number] Palpitations Social History Tobacco Use Types Packs/Day [...] Pass OR Admitting Dept - Virtual Department [address] [place] [address] 04/24/2025 7:30 AM EST Hospital Encounter OR Admitting Dept - Virtual Department [address] [place] [address] Loida Riggs MD [address] [place] [address] [email or web address] 04/24/2025 7:30 AM EST - 04/24/2025 9:10 AM EST Surgery OR Admitting Dept - Virtual Department [address] [place] [address] Loida Riggs MD [address] [place] [address] [email or web address] LAPAROSCOPIC CHOLECYSTECTOMY 04/28/2025 10:15 AM EST Office Visit [facility] Pulmonology, Allergy [facility] [address] [place] [address] Bradley Philip MD, [place] [address] [place] [address] [email or web address] Scheduled Procedures Name Priority Associated Diagnoses Date/Ti tx LAPAROSCOPIC CHOLECYSTECTOMY Calculus of gallbladder without cholecystitis without obstruction 04/24/2025 7:30 AM EST documented as of this encounter Results * NC Stress Result for Nuclear Stress Test (04/29/2022 11:59 AM EST) Max BP Systolic 150 mmHg [facility] Max BP Diastolic 88 mmHg [facility] Max HR 176 BPM [facility] Resting HR 86 BPM [facility] Resting BP Systolic 122 mmHg [facility] Resting BP Diastolic 88 mmHg [facility] Peak METS 10.1 METS [facility] Peak HR 173 BPM [facility] Anatomical Region Laterality Modality Heart Other 04/29/2022 [...] and will be reported separately. Kvng Triplett NP w/ Dr. Jay. Joe Reinoso DO CV [place] CARDIAC Final Result documented in this encounter Visit Diagnoses Diagnosis Palpitations Palpitations Calculus of gallbladder without cholecystitis without obstruction documented in this encounter Additional Health Concerns Infection Onset Date Last Indicated Resolved Time CoV-Risk 03/16/2024 03/16/2024 03/27/2024 2:34 AM EST documented as of this encounter Care Teams Oracle [employer] Consultant Relationship Specialty Start Date End Date Joe Reinoso DO [address] [place] [phone] [email or web address] PCP - General Internal Medicine 04/02/22 02/05/23 Sejal Ngo MD [address] [place] [address] [email or web address] PCP - General Family Medicine 02/06/23 documented as of this encounter Additional Source Comments The information contained in this document represents components of the legal health record. It is not the complete legal health record.[facility]
--- OUTSIDE RECORDS SUMMARY | 2025-02-17 07:49 | XMS_ITS | Encounter Summary ---
Author Organization [facility] Address [address] [place] [address] Phone Care Team Providers Care Sub Master Name Role Phone Tanika Dobbins CNP Primary Care Provider + Fior Carney MD Primary Care Provider Michi Soria NP Primary Care Provider [phone] Joe Reinoso DO Primary Care Provider [phone] Sejal Ngo MD Primary Care Provider + Encounter Details Date Type Department Care Team (Latest Contact Info) Description 08/16/2019 Transcribe Orders Virtual Department [address] [place] [address] Fior Carney MD [address] [place] [address] [email or web address] Wheezing (Primary Dx) Social History Tobacco Use [...] Pass OR Admitting Dept - Virtual Department [address] [place] [address] 04/24/2025 7:30 AM EST Hospital Encounter OR Admitting Dept - Virtual Department [address] [place] [address] Loida Riggs MD [address] [place] [address] [email or web address] 04/24/2025 7:30 AM EST - 04/24/2025 9:10 AM EST Surgery OR Admitting Dept - Virtual Department [address] [place] [address] Loida Riggs MD [address] [place] [address] [email or web address] LAPAROSCOPIC CHOLECYSTECTOMY 04/28/2025 10:15 AM EST Office Visit [facility] Pulmonology, Allergy and Critical Care Medicine Clinic [address] [place] [address] Bradley Philip MD, [place] [address] [address] [email or web address] Scheduled Procedures Name Priority Associated Diagnoses Date/Ti me LAPAROSCOPIC CHOLECYSTECTOMY Calculus of gallbladder without cholecystitis without obstruction 04/24/2025 7:30 AM EST documented as of this encounter Results * Pulmonary Function Test Reason for Exam: Wheezing; Type of PFT Test: Lung Volumes, DLCO, Spirometrywith bronchodilator; Performing Location: [facility] (11/01/2019 6:43 AM EDT) FEV1 2.96 liters [...] encounter Visit Diagnoses Diagnosis Wheezing- Primary Wheezing Calculus of gallbladder without cholecystitis without obstruction documented in this encounter Additional Health Concerns Infection Onset Date Last Indicated Resolved Time CoV-Risk 03/16/2024 03/16/2024 03/27/2024 2:34 AM EST documented as of this encounter Care Teams Sub Master Relationship Specialty Start Date End Date Tanika Dobbins CNP [facility] SHAYY Brito [address] [email or web address] PCP - General Family Medicine 01/12/19 10/12/19 Fior Carney MD [address] [place] [address] [email or web address] PCP - General Family Medicine 10/13/19 12/16/19 Michi Soria NP [address] [place] [address] [email or web address] PCP - General Family Medicine 12/17/19 04/01/22 Joe Reinoso DO [address] [place] [phone] [email or web address] PCP - General Internal Medicine 04/02/22 02/05/23 Sejal Ngo MD [address] [place] [address] [email or web address] PCP - General Family Medicine 02/06/23 documented as of this encounter Additional Source Comments The information contained in this document represents components of the legal health record. It is not the complete legal health record.[facility]
--- OUTSIDE RECORDS SUMMARY | 2025-02-17 07:49 | XMS_ITS | Encounter Summary ---
Author Organization [facility] Address [address] [place] [address] Phone Care Team Providers Care Sleeping Car Service Attendant Name Role Phone Fior Carney MD Primary Care Provider Michi Soria NP Primary Care Provider [phone] Joe Reinoso DO Primary Care Provider [phone] Sejal Ngo MD Primary Care Provider + Encounter Details Date Type Department Care Team (Late st Contact Info) Description 10/27/2019 Transcribe Orders [facility] [address] [place] [address] Fior Carney MD [address] [place] [address] [email or web address] Social History Tobacco Use Types Packs/Day Years [...] Pass OR Admitting Dept - Virtual Department [address] [place] [address] 04/24/2025 7:30 AM EST Hospital Encounter OR Admitting Dept - Virtual Department [address] [place] [address] Loida Riggs MD [address] [place] [address] [email or web address] 04/24/2025 7:30 AM EST - 04/24/2025 9:10 AM EST Surgery OR Admitting Dept - Virtual Department [address] [place] [address] Loida Riggs MD [address] [place] [address] [email or web address] LAPAROSCOPIC CHOLECYSTECTOMY 04/28/2025 10:15 AM EST Office Visit [facility] Pulmonology, Allergy and Critical Care Medicine Clinic [address] [place] [address] Bradley Philip MD, MS [address] [place] [address] [email or web address] Scheduled Procedures Name Priority Associated Diagnoses Date/Ti me LAPAROSCOPIC CHOLECYSTECTOMY Calculus of gallbladder without cholecystitis without obstruction 04/24/2025 7:30 AM EST documented as of this encounter Visit Diagnoses Not on filedocumented in this encounter Additional Health Concerns Infection Onset Date Last Indicated Resolved Time CoV-Risk 03/16/2024 03/16/2024 03/27/2024 2:34 AM EST documented as of this encounter Care Teams Sleeping Car Service Attendant Relationship Specialty Start Date End Date Fior Carney MD PCP - General Family Medicine 10/13/19 12/16/19 Michi Soria NP [address] [place] [address] [email or web address] PCP - General Family Medicine 12/17/19 04/01/22 Joe Reinoso DO [address] [facility] 20 [place] [phone] [email or web address] PCP - General Internal Medicine 04/02/22 02/05/23 Sejal Ngo MD [address] [place] [address] [email or web address] PCP - General Family Medicine 02/06/23 documented as of this encounter Additional Source Comments The information contained in this document represents components of the legal health record. It is not the complete legal health record.[facility]
== END 2025-02-17 07:47 | disposition home or self-care (01) ==
LOC: HO.XRAY 07:46
PROVIDERS: PCP Physician Assistant; Visit Provider Internal Medicine
DX: K21.9 Gastro-esophageal reflux disease without esophagitis (principal)
CPT/HCPCS: 74220

== ENCOUNTER → 2025-02-17 07:47 | Outpatient (BNV) | payer OTHER, SELFPAY | PROVIDERS: PCP Physician Assistant; Visit Provider Radiology Diagnostic Radiology | DX: K44.9 Diaphragmatic hernia without obstruction or gangrene (principal) | CPT/HCPCS: 74221 ==